=== PATIENT | male | born 1970 | race African-American/Black ===

== ENCOUNTER 2020-03-28 18:44 | Inpatient (IN) | payer SELFPAY ==
--- NOTE | 2020-03-28 19:10 | ER Document Report ---
ED Medical Screen (RME) - General Stated Complaint: WEAKNESS Time Seen by Provider: 03/28/20 19:00 Mode of Arrival: Wheelchair Information source: Patient, Relative Notes: HPI; 49-year-old male with no previous medical problems was brought to the emergency room room by his complaining of generalized weakness, weight loss, and decreased appetite for the past 2 weeks. States he quit smoking in drinking soda just prior to his symptoms starting. States he was seen in urgent care last week was diagnosed with bronchitis and put on prednisone. States he went back 5 days ago because he started having swelling in his feet states they stopped the prednisone and put him on Zithromax. He did have a negative Covid test 1 week ago. No known COVID-19 exposure. Patient states "I just feel like a lot of follow-up" he denies any chest pain or shortness of breath. PE: Alert and oriented x3. Lungs: Clear to auscultation without rales, rhonchi, wheezes. Heart: Tachycardic without murmurs, rubs, gallops. 2+ pitting edema bilaterally I have greeted and performed a rapid initial assessment of this patient. A comprehensive ED assessment and evaluation of the patient, analysis of test results and completion of the medical decision making process will be conducted by additional ED providers. I have specifically instructed the patient or family members with the patient to immediately return to any nursing staff should anything change in the patient's condition or with their chief complaint. TRAVEL OUTSIDE OF THE [place] IN LAST 30 DAYS: No - Related Data Allergies/Adverse Reactions: No Known Allergies Allergy (Unverified 03/28/20 19:00) Physical Exam - Vital signs Vitals: Pulse Resp BP Pulse Ox 103 H 22 H 193/151 H 97 03/28/20 18:56 03/28/20 18:56 03/28/20 18:56 03/28/20 18:56 Course - Vital Signs Vital signs: Temp Pulse Resp BP Pulse Ox 103 H 22 H 193/151 H 97 03/28/20 18:56 03/28/20 18:56 03/28/20 18:56 03/28/20 18:56
[2020-03-28 20:03] LABS: APPEARANCE,URINE SLIGHTLY-CLOUDY; BILIRUBIN,URINE NEGATIVE (NEGATIVE); COLOR,URINE AMBER; GLUCOSE, URINE NEGATIVE (NEGATIVE); KETONES,URINE NEGATIVE (NEGATIVE); LEUKOCYTE ESTERASE,URINE NEGATIVE (NEGATIVE); NITRITE,URINE NEGATIVE (NEGATIVE); PROTEIN,URINE >=500 mg/dL (NEGATIVE); URINE SPECIFIC GRAVITY 1.017
--- NOTE | 2020-03-28 20:27 | RADIOLOGY REPORT (SQ) ---
EXAM DESCRIPTION: X-RAY CHEST- One View CLINICAL HISTORY: Weakness COMPARISON: None available. TECHNIQUE: Single view of the chest. FINDINGS: There are no discrete air space infiltrates, pneumothoraces or pleural effusions. The pulmonary vascularity is normal. The cardiomediastinal silhouette is mildly enlarged. Osseous structures appear grossly intact. IMPRESSION: There are no acute lung parenchymal findings. Mild enlargement of the cardiac silhouette.
[2020-03-28 21:01] LABS: ABSOLUTE MONOCYTES (AUTO) 0.7 10^3/uL (0.1-1.4); ABSOLUTE NEUT (AUTO) 8.6 10^3/uL (1.7-8.2); BASOPHILS % (AUTO) 0.3 % (0-2); HEMATOCRIT 45.3 % (37.9-51.0); HEMOGLOBIN 14.8 g/dL (13.5-17.0); LYMPHOCYTES % (AUTO) 9.5 % (13-45); MEAN CORPUSCULAR HEMOGLOBIN 30.5 pg (27.0-33.4); MEAN CORPUSCULAR HGB CONC 32.6 g/dL (32.0-36.0); MEAN CORPUSCULAR VOLUME 94 fl (80-97); MONOCYTES % (AUTO) 6.7 % (3-13); PLATELET COUNT 140 10^3/uL (150-450); RED BLOOD COUNT 4.85 10^6/uL (4.35-5.55); RED CELL DISTRIBUTION WIDTH 18.3 % (11.5-14.0); SEGMENTED NEUTROPHILS % (AUTO) 83.5 % (42-78); TOTAL CELLS COUNTED % (AUTO) 100 %; WHITE BLOOD COUNT 10.3 10^3/uL (4.0-10.5)
[2020-03-28 21:28] LABS: ALBUMIN 3.4 g/dL (3.5-5.0); ALKALINE PHOSPHATASE 295 U/L (38-126); ANION GAP 15 (5-19); ASPARTATE AMINO TRANSFERASE 198 U/L (17-59); BILIRUBIN,TOTAL 4.6 mg/dL (0.2-1.3); BLOOD UREA NITROGEN 94 mg/dL (7-20); CALCIUM 9.4 mg/dL (8.4-10.2); CARBON DIOXIDE 24 mmol/L (22-30); CHLORIDE 83 mmol/L (98-107); GLUCOSE 138 mg/dL (75-110); TOTAL PROTEIN 7.3 g/dL (6.3-8.2)
--- NOTE | 2020-03-28 21:52 | ER Document Report ---
ED General - General Chief Complaint: General Weakness Stated Complaint: WEAKNESS Time Seen by Provider: 03/28/20 19:00 Mode of Arrival: Wheelchair TRAVEL OUTSIDE OF THE [place] IN LAST 30 DAYS: No - HPI Context: Time: 1929 Chief Complaint: [Generalized weakness, dyspnea on exertion, orthopnea, bilateral foot swelling] [This is a 49-year-old male with no prior history of congestive heart failure presenting to the emergency department with the above complaints. Patient states that they have been present over the past 2 weeks and has just been getting progressively worse. Patient denies chest pain, history of CHF. Patient states he quit smoking about a month and a half ago. ] History obtained from [patient] Symptoms began:[2 weeks] Onset: [Gradual] Timing: [Gradual] Quality: [Moderate] Intensity: [Denies pain] Location: [Generalized weakness] Radiation: [Denies] [The pain does not migrate to a new location.] Aggravating factors: [none] Relieving factors: [none] Positive SOB [Denies] nausea [Denies] vomiting [Denies] sweats [Denies] fever [Denies] cough Positive foot swelling - Related Data Allergies/Adverse Reactions: No Known Allergies Allergy (Unverified 03/28/20 19:00) Past Medical History - General Information source: Patient, Relative - Social History Smoking Status: Former Smoker Chew tobacco use (# tins/day): No Frequency of alcohol use: None Drug Abuse: None Family History: Reviewed & Not Pertinent Review of Systems - Review of Systems Notes: Review of systems as below unless otherwise stated in HPI. CONSTITUTIONAL [No] fever, [No] chills. Positive generalized weakness EYES [No] eye pain. ENT [No] URI symptoms, [No] sore throat, [No] ear pain. CARDIOVASCULAR [No] chest pain, [No] palpitations, [No] edema. RESPIRATORY [No] Cough, positive SOB, [No] wheezing. Positive dyspnea on exertion, positive orthopnea, positive pedal edema GASTROINTESTINAL [No] abdominal pain, [No] nausea, [No] Diarrhea, [No] Vomiting, [No] constipation, [No] melena, [No] rectal bleeding. GENITOURINARY [No] dysuria, [No] urinary frequency, [No] hematuria, [No] urinary urgency MUSCULOSKELETAL [No] Back pain. SKIN [No] Rash. NEUROLOGIC [No] Headache, [No] recent seizures, [No] paralysis,[No] parathesias. ENDOCRINE [No] polyuria. HEMO/LYMPATIC [No] easy brusing PSYCHIATRIC [No] depression. Physical Exam - Vital signs Vitals: Pulse Resp BP Pulse Ox 103 H 22 H 193/151 H 97 03/28/20 18:56 03/28/20 18:56 03/28/20 18:56 03/28/20 18:56 - Notes Notes: CONSTITUTIONAL [Vital signs reviewed, Patient appears comfortable, Alert and oriented X 3, Normal stature.] HEAD [Atraumatic, Normocephalic.] EYES [Eyes are normal to inspection, No discharge from eyes, Extraocular muscles int act, Sclera are normal, Conjunctiva are normal.] ENT [External ears normal to inspection, Nose examination normal, Mouth normal to inspection.] NECK [Normal ROM, No jugular venous distention, No meningeal signs, ] RESPIRATORY CHEST [Chest is nontender, Breath sounds normal, No respiratory distress.] CARDIOVASCULAR [RRR, No murmurs, Normal S1 S2, No rub, No gallop.] ABDOMEN [Abdomen is nontender, No pulsatile masses, No other masses, Bowel sounds normal, No distension, No peritoneal signs, No hernias.] BACK [There is no CVA Tenderness, There is no tenderness to palpation, Normal inspection.] UPPER EXTREMITY [Inspection normal, No cyanosis, No clubbing, No edema, LOWER EXTREMITY Lower extremity exam significant for 1+ pitting edema in bilateral feet and ankles NEURO [No focal motor deficits, No focal sensory deficits, Speech normal.] SKIN [Skin is warm, Skin is dry, Skin is normal color.] PSYCHIATRIC [Normal affect. ] Course - Re-evaluation Re-evalutation: 03/29/20 07:43 Results of ED aliasing discussed with patient and patient's significant other. Recommendation for admission discussed with patient patient's significant other. They were agreeable to being admitted. - Vital Signs Vital signs: Temp Pulse Resp BP Pulse Ox 97.6 F 90 18 167/102 H 100 03/29/20 08:28 03/29/20 02:44 03/29/20 06:00 03/29/20 05:46 03/29/20 06:00 - Laboratory Result Diagrams: 03/29/20 06:58 12/07/20 06:58 Laboratory results interpreted by me: 03/28/20 03/28/20 03/28/20 19:22 19:22 19:22 RDW Plt Count Lymph % (Auto) Absolute Neuts (auto) Seg Neutrophils % Sodium Chloride BUN Creatinine Est GFR ( Amer) Est GFR (MDRD) Non-Af Glucose Total Bilirubin Direct Bilirubin AST ALT Alkaline Phosphatase NT-Pro-B Natriuret Pep Albumin Urine Protein >=500 H Urine Blood MODERATE H Urine Urobilinogen 4.0 H Protein/Creatinin Ratio 0.6 H Urine Sodium < 5 L Urine Total Protein 128.4 H 03/28/20 03/28/20 03/28/20 20:45 20:45 20:45 RDW 18.3 H Plt Count 140 L Lymph % (Auto) 9.5 L Absolute Neuts (auto) 8.6 H Seg Neutrophils % 83.5 H Sodium 121.5 L Chloride 83 L BUN 94 H Creatinine 3.44 H Est GFR ( Amer) 23 L Est GFR (MDRD) Non-Af 19 L Glucose 138 H Total Bilirubin 4.6 H Direct Bilirubin 3.0 H AST 198 H ALT 354 H Alkaline Phosphatase 295 H NT-Pro-B Natriuret Pep 09480 H Albumin 3.4 L Urine Protein Urine Blood Urine Urobilinogen Protein/Creatinin Ratio Urine Sodium Urine Total Protein - Diagnostic Test Radiology reviewed: Reports reviewed - EKG Interpretation by Me Additional EKG results interpreted by me: 03/29/20 07:46 EKG obtained on 03/28/2020 at 1916 hrs. was interpreted by this MD. Findings: Sinus tachycardia heart rate 101, normal axis, ME interval appears to be within normal limits, P waves preceding QRS complexes, QRS complexes appear narrow, QTC is 462, there are nonspecific ST segment changes present. This EKG was reviewed with Dr. Hsu with cardiology. No prior EKG is available for comparison. Impression: Sinus tachycardia with nonspecific ST segments. - Consults Dr. Hsu, cardiology Time consulted: 22:45 - Dr. Hsu feels the patient can be taken care of at this facility Reason for consultation: 03/29/20 07:47 And abnormal EKG, apparent new onset CHF, abnormal troponin Dr. Alegre Time consulted: 23:00 Reason for consultation: 03/29/20 08:00 New onset CHF Consulted provider: will come to ER Discharge - Discharge Clinical Impression: New onset of congestive heart failure Heart failure with acute decompensation, type unknown Qualifiers: Heart failure type: unspecified Qualified Code(s): I50.9 - Heart failure, unspecified Condition: Stable Disposition: ADMITTED INPATIENT Admitting Provider: Bashir ([facility]) Unit Admitted: ICU
[2020-03-28 21:53] LABS: TROPONIN I 0.181 ng/mL
[2020-03-28] MEDS ORDERED: NITROGLYCERIN/D5W 50 MG/250 ML RTUINJ IV PRN ×2 (23:01→23:28)
[2020-03-28] MEDS ORDERED: FUROSEMIDE INJ/PF 20 MG/2 ML SDV IV ONE (23:02)
[2020-03-28] MEDS ORDERED: FUROSEMIDE INJ/PF 40 MG/4 ML SDV ONE (23:05)
[2020-03-28] MEDS ORDERED: ONDANSETRON HCL INJ/PF 4 MG/2 ML SDV IV PRN (23:15)
[2020-03-28] MEDS ORDERED: ASPIRIN 325 MG TABLET PO ONE (23:24)
[2020-03-28] MEDS ORDERED: FAMOTIDINE 20 MG TABLET PO ONE (23:30)
[2020-03-28] MEDS ORDERED: ATORVASTATIN CALCIUM 40 MG TABLET PO ONE (23:45)
[2020-03-28] MEDS ORDERED: FUROSEMIDE INJ/PF 40 MG/4 ML SDV IV ONE (23:45)
--- NOTE | 2020-03-29 00:43 | PDOC H&P ---
History of Present Illness Patient complains of: Shortness of breath, leg swelling History of Present Illness: COSME BLANC is a 49 year old male with no known past medical history presents to the ED with a 2-week duration of progressively worsening shortness of breath. He states that initially the shortness of breath was exertional and it progressively got worse to a level where he started feeling short of breath even at rest. In the past 2 weeks he states that he has not been able to lie flat and he has to prop himself up in order to sleep. He also states that he wakes up from sleep feeling hungry for air and has to sit up to feel better. Associated with this he also has bilateral lower extremity swelling of same duration. Patient states that he visited urgent care center few times in the past 2 weeks and was told that he has bronchitis and was given inhalers and steroid treatment which did not improve his symptoms. He endorses occasional dry cough but denies any fever or chills. He denies chest pain, lightheadedness, palpitation, diaphoresis, focal weakness of extremities, or vomiting. 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 He has not been to a doctor in a very long time and currently is not on any chronic medication and he does not take [id number] medications. Social History Information Source: Patient Lives with: Family Smoking Status: Former Smoker Electronic Cigarette use?: No Hx Recreational Drug Use: No Drugs: None - Advance Directive Resuscitation Status: Full Code Family History Parental Family History Reviewed: Yes Children Family History Reviewed: Yes Sibling(s) Family History Reviewed.: Yes Medication/Allergy Allergies/Adverse Reactions: No Known Allergies Allergy (Unverified 03/28/20 19:00) Review of Systems Constitutional: PRESENT: anorexia, weight loss. ABSENT: chills, fever(s), headache(s), night sweats Eyes: ABSENT: visual disturbances Ears: ABSENT: hearing changes Nose, Mouth, and Throat: ABSENT: headache(s), mouth pain, sore throat Cardiovascular: PRESENT: as per HPI Respiratory: PRESENT: as per HPI Gastrointestinal: ABSENT: abdominal pain, constipation, diarrhea, hematemesis, hematochezia, nausea, vomiting Genitourinary: ABSENT: dysuria, hematuria Musculoskeletal: ABSENT: back pain, muscle weakness Integumentary: ABSENT: rash, wounds Neurological: ABSENT: abnormal speech, confusion, dizziness, focal weakness, syncope Psychiatric: ABSENT: anxiety, depression, homidical ideation, suicidal ideation Endocrine: ABSENT: cold intolerance, heat intolerance, polydipsia, polyuria Hematologic/Lymphatic: ABSENT: easy bleeding, easy bruising Physical Exam Vital Signs: Temp Pulse Resp BP Pulse Ox 103 H 13 200/152 H 100 03/28/20 18:56 03/28/20 22:00 03/28/20 22:01 03/28/20 22:01 Intake & Output 03/27/20 03/28/20 03/29/20 06:59 06:59 06:59 Intake Total 0 Balance 0 Weight 98.3 kg Additional comments: GENERAL APPEARANCE: Alert and oriented x3, in no acute distress HEENT: Normocephalic and atraumatic. No scleral icterus. Moist oral mucosa NECK: Supple. No lymphadenopathy or tenderness. Has elevated JVD CHEST: Symmetric. Nontender to palpation. LUNGS: Clear with good air entry bilaterally. No wheezing or crackles HEART: Regular rate and rhythm with normal S1 and S2. No murmurs, gallops, or rubs. ABDOMEN: soft, active bowel sounds, no direct or rebound tenderness. No organomegaly detected. EXTREMITIES: No cyanosis or clubbing. Has +2 bilateral pitting edema up to the knees. MUSCULOSKELETAL: No deformity, atrophy or swelling noted PSYCHIATRIC: Recent and remote memory is intact. Appropriate mood and affect. SKIN: Warm, dry, and well perfused. No lesions or rashes are noted. NEUROLOGIC: No focal sensory or motor deficits are noted. Results Laboratory Results: 03/28/20 20:45 03/28/20 20:45 03/28/20 03/28/20 03/28/20 19:22 20:45 20:45 WBC 10.3 RBC 4.85 Hgb 14.8 Hct 45.3 MCV 94 MCH 30.5 MCHC 32.6 RDW 18.3 H Plt Count 140 L Seg Neutrophils % 83.5 H Sodium 121.5 L Potassium 5.0 Chloride 83 L Carbon Dioxide 24 Anion Gap 15 BUN 94 H Creatinine 3.44 H Est GFR ( Amer) 23 L Glucose 138 H Calcium 9.4 Total Bilirubin 4.6 H AST 198 H Alkaline Phosphatase 295 H Total Protein 7.3 Albumin 3.4 L Urine Color ROBER Urine Appearance SLIGHTLY-CLOUDY Urine pH 5.0 Ur Specific [place] 1.017 Urine Protein >=500 H Urine Glucose (UA) NEGATIVE Urine Ketones NEGATIVE Urine Blood MODERATE H Urine Nitrite NEGATIVE Ur Leukocyte Esterase NEGATIVE Urine WBC (Auto) 2 Urine RBC (Auto) 2 03/28/20 20:45 Troponin I 0.181 NT-Pro-B Natriuret Pep 43506 H Impressions: Chest X-Ray 03/28/20 19:06 IMPRESSION: There are no acute lung parenchymal findings. Mild enlargement of the cardiac silhouette. Assessment and Plan - Diagnosis (1) Heart failure with acute decompensation, type unknown Is this a current diagnosis for this admission?: Yes Plan: Presents with exertional dyspnea, orthopnea, PND and leg swelling In the setting of elevated troponins and ST depression on inferior and lateral leads, concerning for new onset heart failure due to myocardial ischemia Chest x-ray shows cardiomegaly BNP elevated at 48,500 Lasix 80 mg IV was given at the ED, continue 40 mg IV twice daily Strict I&O's, daily weight, fluid restriction On telemetry monitoring Closely monitor volume status Echocardiogram in the morning Cardiology consult placed (2) Non-STEMI (non-ST elevated myocardial infarction) Is this a current diagnosis for this admission?: Yes Plan: Patient denies any chest pain Initial troponin was elevated at 0.[address] depression in inferior leads and lateral leads On telemetry monitoring Started on aspirin and atorvastatin Currently chest pain-free and on nitro drip for possible hypertensive emergency Trend cardiac enzymes and EKG Optimally controlled blood pressure with a target reduction of 25% in the first 24 hours line Will consider stress test Or cath based on his kidney function Ordered echocardiogram Cardiology consult placed (3) Hypertensive emergency Is this a current diagnosis for this admission?: Yes Plan: Blood pressure on arrival: Systolic in the 190s and diastolic ranging in the 140s and 150s Patient denies any headache, blurring of vision, chest pain or weakness of e xtremities Has potential signs of endorgan damage: currently being managed for NSTEMI with acute decompensated heart failure and kidney injury Placed on nitroglycerin drip Closely monitor vital signs Continue management of heart failure and non-STEMI as stated above (4) Acute kidney injury Is this a current diagnosis for this admission?: Yes Plan: Patient has no prior baseline labs to compare with Could be DIALLO on CKD vs DIALLO vs CKD BUN/creatinine was 94/3.44, has no signs of uremia or acidosis Serum electrolytes are within the normal limit, with a potassium 5.0 Urine dipstick was positive for proteinuria, follow-up with spot urine protein to creatinine ratio Ordered urine sodium and creatinine to calculate FeNa Currently is being diuresed Closely monitor renal indicis and electrolytes No acute indication for dialysis at this point, volume overload could be due to heart failure Will get nephrology on board in the morning (5) Hyponatremia Is this a current diagnosis for this admission?: Yes Plan: Possibly due to volume overload from congestive heart failure Currently asymptomatic Serum sodium is 121 on presentation on IV diuresis Continue close monitoring of BMP (6) Elevated liver enzymes Is this a current diagnosis for this admission?: Yes Plan: Liver enzymes are elevated on presentation with AST/ALT/alk phos => 198/354/295 Positive direct and indirect bilirubin elevated, total bilirubin: 4.6, direct 3.0 Patient denies heavy alcohol abuse Ordered hepatitis panel, GGT Will consider obtaining right upper quadrant ultrasound monitor CMP - Time Time Spent with patient: 35 or more minutes Total Critical Time (Minutes): 45 Medications reviewed and adjusted accordingly: Yes Anticipated Discharge Disposition: Home, Self Care Anticipated Discharge Timeframe: within 72 hours - Inpatient Certification Based on my medical assessment, after consideration of the patient's comorbidities, presenting symptoms, or acuity I expect that the services needed warrant INPATIENT care.: Yes I certify that my determination is in accordance with my understanding of Medicare's requirements for reasonable and necessary INPATIENT services [42 CFR 412.3e].: Yes Medical Necessity: Need Close Monitoring Due to Risk of Patient Decompensation, Need For Continuous Telemetry Monitoring, Risk of Complication if Not Cared For in Hospital Post Hospital Care: D/C or Transfer Summary
[2020-03-29 01:16] LABS: PROTHROMBIN TIME 18.3 SEC (11.4-15.4)
[2020-03-29 01:17] LABS: PARTIAL THROMBOPLASTIN TIME 34.8 SEC (23.5-35.8)
[2020-03-29 02:23] LABS: UR PRO/CREAT RATIO RESULT 0.6 mg/mg (0.0-0.2); URINE CREATININE 217.4 mg/dL (22-328); URINE PROTEIN 128.4 mg/dL (<12)
[2020-03-29] MEDS ORDERED: TEMAZEPAM 7.5 MG CAPSULE PO PRN (02:29)
[2020-03-29] MEDS ORDERED: FUROSEMIDE INJ/PF 40 MG/4 ML SDV IV ONE (03:05)
[2020-03-29] MEDS ORDERED: HYDRALAZINE HCL INJ/PF 20 MG/1 ML SDV ONE ×2 (04:11→12:32)
[2020-03-29] MEDS ORDERED: HYDRALAZINE HCL INJ/PF 20 MG/1 ML SDV IV ONE ×2 (04:19→13:00)
[2020-03-29 05:21] LABS: APPEARANCE,URINE CLEAR; BILIRUBIN,URINE NEGATIVE (NEGATIVE); COLOR,URINE YELLOW; GLUCOSE, URINE NEGATIVE (NEGATIVE); KETONES,URINE NEGATIVE (NEGATIVE); LEUKOCYTE ESTERASE,URINE NEGATIVE (NEGATIVE); NITRITE,URINE NEGATIVE (NEGATIVE); PROTEIN,URINE 100 mg/dL (NEGATIVE); URINE SPECIFIC GRAVITY 1.005; UROBILINOGEN,URINE NEGATIVE mg/dL (<2.0)
--- NOTE | 2020-03-29 05:40 | CRITICAL CARE ADMISSION REPORT ---
HPI Date:: 03/29/20 Time:: 02:30 Reason for ICU Reason:: Hypertensive Emergency , NSTEMI , CHF Admission Date/Time & PCP: Admission Date/Time: 03/28/20 23:29 Primary Care Provider: HPI: COSME BLANC is a 49 year old male with no known past medical history presents to the ED with a 2-week duration of progressively worsening shortness of breath. He states that initially the shortness of breath was exertional and it progressively got worse to a level where he started feeling short of breath even at rest. In the past 2 weeks he states that he has not been able to lie flat and he has to prop himself up in order to sleep. He also states that he wakes up from sleep feeling hungry for air and has to sit up to feel better. Associated with this he also has bilateral lower extremity swelling of same duration. Patient states that he visited urgent care center few times in the past 2 weeks and was told that he has bronchitis and was given inhalers and steroid treatment which did not improve his symptoms. He endorses occasional dry cough but denies any fever or chills. He denies chest pain, lighthead edness, palpitation, diaphoresis, focal weakness of extremities, or vomiting. 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 He has not been to a doctor in a very long time and currently is not on any chronic medication and he does not take [id number] medications. Evaluated by critical care per hospitalist request. Patient requiring higher dose of Nitroglycerine IV. Patient denies any chest pain, palpitation, diaphoresis. History obtained from:: Patient, Hospitalist - Diagnosis/Plan (1) Acute kidney injury Is this a current diagnosis for this admission?: Yes Plan: Monitor BUN/Creatine Renal Ultra sound in am Nephrology consulted Avoid nephrotoxic agents (2) Elevated liver enzymes Is this a current diagnosis for this admission?: Yes Plan: Abdominal U/S in am Trend LFTs (3) Heart failure with acute decompensation, type unknown Qualifiers: Heart failure type: unspecified Qualified Code(s): I50.9 - Heart failure, unspecified Is this a current diagnosis for this admission?: Yes Plan: Echocardiogram in am Trend BNP Furosemide 40 mg IV BID and as needed Strict I and Os Nitroglycerine IV (4) Hypertensive emergency Is this a current diagnosis for this admission?: Yes Plan: Monitor hemodynamics Nitroglycerine IV titrate to maintain to SBP 160 mmhg and DBP 80-90 mmhg (5) Hyponatremia Is this a current diagnosis for this admission?: Yes Plan: Renal u/s Furosemide 80 mg IV ( ER) and 40 mg IV BID Fluid restrictions Strict I and O. (6) Non-STEMI (non-ST elevated myocardial infarction) Is this a current diagnosis for this admission?: Yes Plan: EKG in am Trend Tropononin Aspirin 325 mg Q day Nitroglycerine IV Echo in am Past Medical History Psychiatric Medical History: Denies: Depression Social/Family History - Social History Lives with: Family Smoking Status: Former Smoker Number of Years Smokin Frequency of Alcohol Use: Occasional Hx Recreational Drug Use: No Drugs: None - Medication/Allergies Allergies/Adverse Reactions: No Known Allergies Allergy (Unverified 03/28/20 19:00) Physical Exam Vital Signs: Temp Pulse Resp BP Pulse Ox 97.6 F 90 26 H 190/134 H 100 03/29/20 02:44 03/29/20 02:44 03/29/20 02:44 03/29/20 02:44 03/29/20 02:44 Intake & Output 03/27/20 03/28/20 03/29/20 06:59 06:59 06:59 Intake Total 137 Output Total 575 Balance -438 Weight 97.5 kg Weight/Height Weight 97.5 kg Height 6 ft Laboratory/Radiographs Laboratory Results: 03/28/20 20:45 03/28/20 20:45 03/28/20 03/28/20 03/28/20 19:22 19:22 20:45 WBC 10.3 RBC 4.85 Hgb 14.8 Hct 45.3 MCV 94 MCH 30.5 MCHC 32.6 RDW 18.3 H Plt Count 140 L Seg Neutrophils % 83.5 H Sodium Potassium Chloride Carbon Dioxide Anion Gap BUN Creatinine Est GFR ( Amer) Glucose Serum Osmolality Calcium Total Bilirubin AST Alkaline Phosphatase Total Protein Albumin Urine Color ROBER Urine Appearance SLIGHTLY-CLOUDY Urine pH 5.0 Ur Specific [place] 1.017 Urine Protein >=500 H Urine Glucose (UA) NEGATIVE Urine Ketones NEGATIVE Urine Blood MODERATE H Urine Nitrite NEGATIVE Ur Leukocyte Esterase NEGATIVE Urine WBC (Auto) 2 Urine RBC (Auto) 2 Urine Osmolality 441 03/28/20 03/28/20 20:45 20:45 WBC RBC Hgb Hct MCV MCH MCHC RDW Plt Count Seg Neutrophils % Sodium 121.5 L Potassium 5.0 Chloride 83 L Carbon Dioxide 24 Anion Gap 15 BUN 94 H Creatinine 3.44 H Est GFR ( Amer) 23 L Glucose 138 H Serum Osmolality 295 Calcium 9.4 Total Bilirubin 4.6 H AST 198 H Alkaline Phosphatase 295 H Total Protein 7.3 Albumin 3.4 L Urine Color Urine Appearance Urine pH Ur Specific [place] Urine Protein Urine Glucose (UA) Urine Ketones Urine Blood Urine Nitrite Ur Leukocyte Esterase Urine WBC (Auto) Urine RBC (Auto) Urine Osmolality 03/28/20 03/29/20 20:45 01:01 Troponin I 0.181 0.173 NT-Pro-B Natriuret Pep 31060 H Impressions: Chest X-Ray 03/28/20 19:06 IMPRESSION: There are no acute lung parenchymal findings. Mild enlargement of the cardiac silhouette. Critical Time Critical Time (minutes): 60 -: The care of a critically ill patient is dynamic. This note represents a static moment in the admission process. Orders and treatments may be given simultaneously and urgently, and time is not loan servicing representative of the treatment process. This patient requires Critical Care secondary to life threatening organ or limb dysfunction. Without Critical Care services, the patient is at risk for increased mortality and morbidity.
--- NOTE | 2020-03-29 07:16 | Progress Note ---
Provider Note Provider Note: Patient is currently admitted to the ICU service. I will defer further management to the vision therapist. Please reconsult when transferred out of the ICU.
[2020-03-29 07:27] LABS: ABSOLUTE MONOCYTES (AUTO) 0.7 10^3/uL (0.1-1.4); ABSOLUTE NEUT (AUTO) 9.9 10^3/uL (1.7-8.2); BASOPHILS % (AUTO) 0.2 % (0-2); HEMATOCRIT 39.3 % (37.9-51.0); LYMPHOCYTES % (AUTO) 8.7 % (13-45); MEAN CORPUSCULAR HEMOGLOBIN 30.6 pg (27.0-33.4); MEAN CORPUSCULAR HGB CONC 33.2 g/dL (32.0-36.0); MEAN CORPUSCULAR VOLUME 92 fl (80-97); MONOCYTES % (AUTO) 6.2 % (3-13); PLATELET COUNT 130 10^3/uL (150-450); RED BLOOD COUNT 4.25 10^6/uL (4.35-5.55); SEGMENTED NEUTROPHILS % (AUTO) 84.9 % (42-78); TOTAL CELLS COUNTED % (AUTO) 100 %; WHITE BLOOD COUNT 11.7 10^3/uL (4.0-10.5)
[2020-03-29 07:31] LABS: ALBUMIN 3.3 g/dL (3.5-5.0); ALKALINE PHOSPHATASE 255 U/L (38-126); ANION GAP 12 (5-19); ASPARTATE AMINO TRANSFERASE 163 U/L (17-59); BILIRUBIN,DIRECT 2.9 mg/dL (0.0-0.4); BILIRUBIN,TOTAL 4.5 mg/dL (0.2-1.3); BLOOD UREA NITROGEN 94 mg/dL (7-20); CALCIUM 9.1 mg/dL (8.4-10.2); CARBON DIOXIDE 30 mmol/L (22-30); CHLORIDE 84 mmol/L (98-107); CHOLESTEROL 106.73 mg/dL (0-200); GLUCOSE 202 mg/dL (75-110); PHOSPHORUS 5.7 mg/dL (2.5-4.5); POTASSIUM 4.1 mmol/L (3.6-5.0); TOTAL PROTEIN 6.9 g/dL (6.3-8.2); TRIGLYCERIDES 108 mg/dL (<150)
[2020-03-29 07:41] LABS: DIRECT LDL 76 mg/dL (<100)
[2020-03-29] MEDS: NITROGLYCERIN/D5W 50 MG/250 ML RTUINJ IV PRN ×2 (07:42→14:05)
[2020-03-29] MEDS ORDERED: METOPROLOL TARTRATE 25 MG TABLET PO SCH ×2 (08:00→22:00)
--- NOTE | 2020-03-29 08:17 | EKG REPORT ---
SEVERITY:- ABNORMAL ECG - SINUS RHYTHM PROBABLE LEFT ATRIAL ABNORMALITY LVH WITH IVCD AND SECONDARY REPOL ABNRM : Confirmed by: Celio Grigsby 29-Mar-2020 08:16:20
--- NOTE | 2020-03-29 08:17 | EKG REPORT ---
SEVERITY:- ABNORMAL ECG - SINUS TACHYCARDIA LEFT ATRIAL ABNORMALITY LVH WITH SECONDARY REPOLARIZATION ABNORMALITY : Confirmed by: Celio Grigsby 29-Mar-2020 08:16:31
--- NOTE | 2020-03-29 08:34 | RADIOLOGY REPORT (SQ) ---
EXAM DESCRIPTION: CHEST SINGLE VIEW IMAGES COMPLETED DATE/TIME: 03/29/2020 6:08 am REASON FOR STUDY: CHF COMPARISON: AP view of the chest from 03/28/2020. EXAM PARAMETERS: NUMBER OF VIEWS: One view. TECHNIQUE: An AP view of the chest was obtained. RADIATION DOSE: NA LIMITATIONS: None. FINDINGS: LUNGS AND PLEURA: No consolidation, pleural effusion or pneumothorax. MEDIASTINUM AND HILAR STRUCTURES: No mediastinal or hilar contour abnormality. HEART AND VASCULAR STRUCTURES: The cardiac silhouette is mildly enlarged. BONES: No acute findings. HARDWARE: None in the chest. OTHER: No other finding. IMPRESSION: Mild cardiomegaly without a superimposed acute cardiopulmonary process. TECHNICAL DOCUMENTATION: JOB ID: [id number] [employer]- All Rights Reserved Reading location - IP/workstation name: [email or web address]
[2020-03-29] MEDS: FUROSEMIDE INJ/PF 40 MG/4 ML SDV IV SCH ×2 (09:14→21:15)
[2020-03-29] MEDS: FAMOTIDINE 20 MG TABLET PO SCH ×2 (09:15→21:15)
[2020-03-29] MEDS: ENOXAPARIN SODIUM INJ 40 MG/0.4 ML DISP.SYRIN SUBCUT SCH (09:15)
[2020-03-29] MEDS: ASPIRIN 81 MG TABLET, CHEWABLE PO SCH (09:15)
[2020-03-29] MEDS ORDERED: DOCUSATE SODIUM 100 MG/10 ML UDC PO SCH (10:00)
--- NOTE | 2020-03-29 10:48 | PDOC CRITICAL CARE PROG REPORT ---
General Date:: 03/29/20 ICU Day:: 1 Hospital Day:: 1 Resuscitation Status: Full Code Events in the past 12 to 24 Hours:: Found to be in R CHF mild L CHF. On NTG drip. Needs BP control. Review of systems relevant to events:: CV Reason for ICU Addmission:: Hypertensive Emergency , NSTEMI , CHF - Medications: Medications reviewed and adjusted accordingly: Yes Vasopressors:: None Sedation:: None Physical Exam Vital Signs: Temp Pulse Resp BP Pulse Ox 97.6 F 90 20 169/111 H 100 03/29/20 08:28 03/29/20 02:44 03/29/20 10:17 03/29/20 10:17 03/29/20 10:17 Intake & Output 03/28/20 03/29/20 03/30/20 06:59 06:59 06:59 Intake Total 137 200 Output Total 1375 1500 Balance -1238 -1300 Weight 97.5 kg Weight/Height Weight 97.5 kg Height 6 ft General appearance: PRESENT: no acute distress, cooperative, well-developed, well-nourished Head exam: PRESENT: atraumatic, normocephalic Eye exam: PRESENT: conjunctiva pink, EOMI, PERRLA. ABSENT: scleral icterus Ear exam: PRESENT: normal external ear exam Mouth exam: PRESENT: moist, tongue midline Respiratory exam: PRESENT: clear to auscultation raymundo. ABSENT: rales, rhonchi, wheezes Cardiovascular exam: PRESENT: RRR. ABSENT: diastolic murmur, rubs, systolic murmur GI/Abdominal exam: PRESENT: normal bowel sounds, soft. ABSENT: distended, guarding, mass, organolmegaly, rebound, tenderness Rectal exam: PRESENT: deferred Extremities exam: PRESENT: full ROM, +1 edema. ABSENT: calf tenderness, clubbing, pedal edema Musculoskeletal exam: PRESENT: normal inspection Neurological exam: PRESENT: alert, awake, oriented to person, oriented to place, oriented to time, oriented to situation, CN II-XII grossly intact. ABSENT: motor sensory deficit Psychiatric exam: PRESENT: appropriate affect, normal mood. ABSENT: homicidal ideation, suicidal ideation Skin exam: PRESENT: dry, intact, warm. ABSENT: cyanosis, rash Laboratory/Radiographs Laboratory Results: 03/29/20 06:58 03/29/20 06:58 03/28/20 03/28/20 03/28/20 19:22 19:22 20:45 WBC 10.3 RBC 4.85 Hgb 14.8 Hct 45.3 MCV 94 MCH 30.5 MCHC 32.6 RDW 18.3 H Plt Count 140 L Seg Neutrophils % 83.5 H Sodium Potassium Chloride Carbon Dioxide Anion Gap BUN Creatinine Est GFR ( Amer) Glucose Serum Osmolality Calcium Phosphorus Magnesium Total Bilirubin AST Alkaline Phosphatase Ammonia Total Protein Albumin Triglycerides Cholesterol LDL Cholesterol Direct VLDL Cholesterol HDL Cholesterol Amylase Lipase Urine Color ROBER Urine Appearance SLIGHTLY-CLOUDY Urine pH 5.0 Ur Specific [place] 1.017 Urine Protein >=500 H Urine Glucose (UA) NEGATIVE Urine Ketones NEGATIVE Urine Blood MODERATE H Urine Nitrite NEGATIVE Ur Leukocyte Esterase NEGATIVE Urine WBC (Auto) 2 Urine RBC (Auto) 2 Urine Osmolality 441 03/28/20 03/28/20 03/29/20 20:45 20:45 04:45 WBC RBC Hgb Hct MCV MCH MCHC RDW Plt Count Seg Neutrophils % Sodium 121.5 L Potassium 5.0 Chloride 83 L Carbon Dioxide 24 Anion Gap 15 BUN 94 H Creatinine 3.44 H Est GFR ( Amer) 23 L Glucose 138 H Serum Osmolality 295 Calcium 9.4 Phosphorus Magnesium Total Bilirubin 4.6 H AST 198 H Alkaline Phosphatase 295 H Ammonia Total Protein 7.3 Albumin 3.4 L Triglycerides Cholesterol LDL Cholesterol Direct VLDL Cholesterol HDL Cholesterol Amylase Lipase Urine Color YELLOW Urine Appearance CLEAR Urine pH 6.0 Ur Specific [place] 1.005 Urine Protein 100 H Urine Glucose (UA) NEGATIVE Urine Ketones NEGATIVE Urine Blood SMALL H Urine Nitrite NEGATIVE Ur Leukocyte Esterase NEGATIVE Urine WBC (Auto) 0 Urine RBC (Auto) 0 Urine Osmolality 03/29/20 03/29/20 03/29/20 06:58 06:58 06:58 WBC 11.7 H RBC 4.25 L Hgb 13.0 L Hct 39.3 MCV 92 MCH 30.6 MCHC 33.2 RDW 18.0 H Plt Count 130 L Seg Neutrophils % 84.9 H Sodium 126.4 L Potassium 4.1 Chloride 84 L Carbon Dioxide 30 Anion Gap 12 BUN 94 H Creatinine 3.53 H Est GFR ( Amer) 23 L Glucose 202 H Serum Osmolality Calcium 9.1 Phosphorus 5.7 H Magnesium 2.4 H Total Bilirubin 4.5 H AST 163 H Alkaline Phosphatase 255 H Ammonia Total Protein 6.9 Albumin 3.3 L Triglycerides 108 Cholesterol 106.73 LDL Cholesterol Direct 76 VLDL Cholesterol 22.0 HDL Cholesterol 15 L Amylase 129 H Lipase 864.7 H Urine Color Urine Appearance Urine pH Ur Specific [place] Urine Protein Urine Glucose (UA) Urine Ketones Urine Blood Urine Nitrite Ur Leukocyte Esterase Urine WBC (Auto) Urine RBC (Auto) Urine Osmolality 03/29/20 06:58 WBC RBC Hgb Hct MCV MCH MCHC RDW Plt Count Seg Neutrophils % Sodium Potassium Chloride Carbon Dioxide Anion Gap BUN Creatinine Est GFR ( Amer) Glucose Serum Osmolality Calcium Phosphorus Magnesium Total Bilirubin AST Alkaline Phosphatase Ammonia < 8.7 L Total Protein Albumin Triglycerides Cholesterol LDL Cholesterol Direct VLDL Cholesterol HDL Cholesterol Amylase Lipase Urine Color Urine Appearance Urine pH Ur Specific [place] Urine Protein Urine Glucose (UA) Urine Ketones Urine Blood Urine Nitrite Ur Leukocyte Esterase Urine WBC (Auto) Urine RBC (Auto) Urine Osmolality 03/28/20 03/29/20 03/29/20 20:45 01:01 06:58 Troponin I 0.181 0.173 0.190 NT-Pro-B Natriuret Pep [id number] H 03/29/20 06:58 Troponin I NT-Pro-B Natriuret Pep [id number] H Impressions: Chest X-Ray 03/29/20 06:00 IMPRESSION: Mild cardiomegaly without a superimposed acute cardiopulmonary process. All labs, radiographs, diagnostic studies and EKGs were personally reviewed: Yes In addition, reports of radiographic and diagnostic studies were read: Yes Assessment and Plan - Diagnosis (1) Hypertensive emergency Is this a current diagnosis for this admission?: Yes Plan: The reason for the NTG drip[. I am not sure if this is really an emergency. I believe the CR elevation is not new. The troponin may be from this and a BNP of 39K. When of the NTG downgrade. Keep Bp around 150-160 or no lower than 20-25% of baseline on admission. (2) Acute kidney injury Is this a current diagnosis for this admission?: Yes Plan: Adjust BP and if Cr and GFR dont come down, may need nephrology. Level tends to preclude MARGARITA and ARBs for now. (3) Heart failure with acute decompensation, type unknown Qualifiers: Heart failure type: unspecified Qualified Code(s): I50.9 - Heart failure, unspecified Is this a current diagnosis for this admission?: Yes Plan: Bedside echo suggestive of LVH. Likely has diastolic dysfunction. Needs lasix. (4) Hyponatremia Is this a current diagnosis for this admission?: Yes Plan: Monitor in view of Lasix use. Plan Summary: Asked Dr. Song to see. D/C NTG drip today and downgrade. Critical Time Critical Time (minutes): 35 Level of Care: ICU Anticipated discharge: Home Anticipated DC Timeframe: Other -: 1. The care of a critical patient is a dynamic process. This note is a repres entative synopsis but static in nature. The timeframe for treatments given in order is not necessarily the actual time these treatments may have been done. 2. This patient requires critical care secondary to ongoing requirements for therapy not offered or safe outside the critical care environment. Transfer to a lower level of care will result in altered life or limb morbidity and mortality. 3. Multidisciplinary rounds completed. 4. ABCDE bundle addressed.
[2020-03-29] MEDS ORDERED: NITROGLYCERIN 15 MG (0.6 MG/1 HR) PATCH.TD24 TD SCH (14:00)
[2020-03-29] MEDS ORDERED: HYDRALAZINE HCL 25 MG TABLET PO ONE (15:39)
[2020-03-29] MEDS: DOCUSATE SODIUM 100 MG CAPSULE PO SCH (17:10)
--- NOTE | 2020-03-29 17:29 | XCELERA REPORT ---
[address] [address] Transthoracic Echocardiogram Report Name: COSME BLANC Age: 49 yrs Gender: Male : 1970 Patient Status: Inpatient Patient Location: ICU^[id number] Study Date: 03/29/2020 11:02 AM Height: 72 in Weight: 214 lb BSA: 2.2 m2 Procedure: A two-dimensional transthoracic echocardiogram with color flow and Doppler was performed. Study Quality: Good. Reason For Study: CHF, murmur History: CHF, murmur. Ordering Physician: OMID TORO Performed By: Felisa Deshpande Interpretation Summary The left ventricle is moderately to severly dilated. There is moderate to severe concentric left ventricular hypertrophy. LV EF is Less than 20% Left ventricular systolic function is severely reduced. Doppler measurements suggest impaired left ventricular relaxation, which is associated with grade I/IV or mild diastolic dysfunction : By Tissue dopplers. There is severe global hypokinesis of the left ventricle. here is a clot in the Apical Inferiror wall, .The LA has a 2.5 X2.6 cm rounded mobile clot.Cannot exclude a clot in the RA. The right ventricle is mild to moderately dilated. The right ventricular systolic function is mild to moderately reduced. The right atrium is moderately dilated. The left atrium is severely dilated. There is no evidence of mitral valve prolapse. There is no vegetation seen on the mitral valve. There is no mitral valve stenosis. There is a moderate amount of mitral regurgitation There is no aortic valvular vegetation. There is no aortic valve stenosis There is no LVOT obstruction. No aortic regurgitation is present. There is no tricuspid stenosis. There is a moderate to severe amount of tricuspid regurgitation There is at least moderate pulmonary hypertension.RVSP is at least 53 mm of Hg , with RA mean f atleast 20 . There is no pulmonic valvular stenosis. There is a mild amount of pulmonic regurgitation The aortic root is normal size. The inferior vena cava appeared dilated and did not change with respiration (RAP > 20 mmHg) There is no pericardial effusion. MMode/2D Measurements & Calculations RVDd: 4.6 cm LVIDd: 6.1 cm FS: 9.9 % EPSS: 1.9 cm IVSd: 1.6 cm LVIDs: 5.5 cm EDV(Teich): 187.9 ml LVPWd: 1.6 cm ESV(Teich): 148.0 ml EF(Teich): 21.3 % Ao root diam: 3.2 cm LVLd ap4: 9.0 cm SV(MOD-sp4): 48.0 ml EDV(MOD-sp4): 200.0 ml Ao root area: 8.2 cm2 LVLs ap4: 8.5 cm LA dimension: 5.7 cm ESV(MOD-sp4): 152.0 ml EF(MOD-sp4): 24.0 % Doppler Measurements & Calculations MV E max sagar: MV P1/2t max sagar: Ao V2 max: LV V1 max P.9 cm/sec 92.9 cm/sec 117.3 cm/sec 1.9 mmHg MV A max sagar: MV P1/2t: 39.3 msec Ao max PG: LV V1 max: 33.3 cm/sec MVA(P1/2t): 5.6 cm2 5.5 mmHg 68.6 cm/sec MV E/A: 2.8 MV dec slope: 691.7 cm/sec2 MV dec time: 0.12 sec PA V2 max: PI end-d sagar: TR max sagar: MV P1/2t-pr_phl: 56.2 cm/sec 133.6 cm/sec 287.8 cm/sec 39.3 msec PA max PG: TR max P.3 mmHg 33.1 mmHg Left Ventricle The left ventricle is moderately to severly dilated. There is moderate to severe concentric left ventricular hypertrophy. LV EF is Less than 20%. Left ventricular systolic function is severely reduced. Doppler measurements suggest impaired left ventricular relaxation, which is associated with grade I/IV or mild diastolic dysfunction. : By Tissue dopplers. There is severe global hypokinesis of the left ventricle. here is a clot in the Apical Inferiror wall, .The LA has a 2.5 X2.6 cm rounded mobile clot.Cannot exclude a clot in the RA. Right Ventricle The right ventricle is mild to moderately dilated. The right ventricular systolic function is mild to moderately reduced. Atria The right atrium is moderately dilated. The left atrium is severely dilated. Mitral Valve There is no evidence of mitral valve prolapse. There is no vegetation seen on the mitral valve. There is no mitral valve stenosis. There is a moderate amount of mitral regurgitation. Aortic Valve There is no aortic valvular vegetation. There is no aortic valve stenosis. There is no LVOT obstruction. No aortic regurgitation is present. Tricuspid Valve There is no tricuspid stenosis. There is a moderate to severe amount of tricuspid regurgitation. There is at least moderate pulmonary hypertension.RVSP is at least 53 mm of Hg , with RA mean f atleast 20 . Pulmonic Valve There is no pulmonic valvular stenosis. There is a mild amount of pulmonic regurgitation. Great Vessels The aortic root is normal size. The inferior vena cava appeared dilated and did not change with respiration (RAP > 20 mmHg). Effusions There is no pericardial effusion. : OMID TORO Lakshmi
--- NOTE | 2020-03-29 17:35 | PDOC CONSULTATION ---
Consultation-Blank Consultation: CARDIOLOGY CONSULTATION by Dr. Minnie Sage on 2019. Patient seen at 5:45 PM. 60 minutes spent with patient more than 50% time spent on direct patient care. HISTORY OF PRESENT ILLNESS: Patient is a 49-year-old Afro-German male who claims he has no prior major medical illness states since the past 2 weeks has been having progressively increasing shortness of breath to rest shortness of breath with dry cough PND orthopnea and leg edema. But on further questioning it looks like the patient has decreased effort tolerance with started at least more than a year ago. Although he was very active he was not as physically comfortable as doing these tasks as he used to in the past. He denies any palpitations near syncope or syncope. He denies any chest pain or discomfort. There is no anginal symptoms. There is no TIA CVA symptoms. Note the patient's admission blood pressure was in the hypertensive emergency range and the patient had acute renal failure with elevated BUN and creatinine and also abnormal liver function test. His troponin I was elevated which is probably secondary to supply demand mismatch rather than a acute coronary event. Note that the patient's echocardiogram shows significantly dilated left ventricle and also the other chambers. Also there is moderate to severe left ventricle hypertrophy. Hence patient probably has had untreated hypertension for a long time. The patient's renal function is also abnormal the patient presents with acute renal failure. In spite of all this there is no pulmonary edema on the patient's chest x-ray. Hence the patient has had untreated hypertension for a long time which is caused endorgan damage in the form of cardiomyopathy and renal failure. He also has at least moderate pulmonary hypertension which could account for the patient's abnormal liver function tests. PAST MEDICAL HISTORY: He denies prior history of hypertension diabetes mellitus, COPD or renal failure. He has no history of TIA CVA. No symptoms of heart failure in the past except for about 2 to 3 weeks duration. He has no history of thyroid disease. He denies any palpitations or history of syncope. Social History Information Source: Patient Lives with: Family Smoking Status: Former Smoker Electronic Cigarette use?: No Hx Recreational Drug Use: No Drugs: None - Advance Directive Resuscitation Status: Full Code. His spouse is a surrogate healthcare decision maker. Family History Parental Family History Reviewed: Yes Children Family History Reviewed: Yes Sibling(s) Family History Reviewed.: Yes Medication/Allergy Allergies/Adverse Reactions: No Home Medications 03/29/20 No Known Allergies Allergy (Unverified 03/28/20 19:00) Current Medications Generic Name Dose Route Start Last Admin Trade Name Cyrus PRN Reason Stop Dose Admin Aspirin 81 mg 03/29/20 10:00 03/29/20 09:15 Aspirin 81 Mg Tablet, Chewable PO 04/28/20 09:59 81 mg DAILY STEVEN Administration Atorvastatin Calcium 40 mg 03/29/20 22:00 Atorvastatin Calcium 40 Mg Tablet PO 04/28/20 21:59 QHS STEVEN Carvedilol 25 mg 03/29/20 22:00 Carvedilol 12.5 Mg Tablet PO 04/28/20 21:59 Q12 STEVEN Docusate Sodium 100 mg 03/29/20 18:00 03/29/20 17:10 Docusate Sodium 100 Mg Capsule PO 04/28/20 17:59 Not Given BID STEVEN Enoxaparin Sodium 40 mg 03/29/20 10:00 03/29/20 09:15 Enoxaparin Sodium Inj 40 Mg/0.4 Ml Disp.Syrin SUBCUT 04/28/20 09:59 40 mg DAILY STEVEN Administration Famotidine 20 mg 03/29/20 10:00 03/29/20 09:15 Famotidine 20 Mg Tablet PO 04/28/20 09:59 20 mg Q12 STEVEN Administration Furosemide 40 mg 03/29/20 10:00 03/29/20 09:14 Furosemide Inj/Pf 40 Mg/4 Ml Sdv IV 04/28/20 09:59 40 mg Q12 STEVEN Administration Nitroglycerin/Dextrose 50 mg in 250 mls @ 0 mls/hr 03/29/20 02:34 03/29/20 17:29 Ntg Rtu 50 Mg/D5w 250 Ml Iv Premix Bottle IV 03/29/20 23:59 90 mcg/min CONTINUOUS PRN 27 mls/hr THIS MED IS NOT "PRN" Titration Protocol Titrate Nitroglycerin 1 each 03/29/20 14:00 03/29/20 14:18 Nitroglycerin 15 Mg (0.6 Mg/1 Hr) Patch.Td24 TD 04/28/20 13:59 1 each DAILY STEVEN Administration Ondansetron HCl 4 mg 03/28/20 23:15 Ondansetron Hcl Inj/Pf 4 Mg/2 Ml Sdv IV 04/27/20 23:14 Q8HP PRN FOR NAUSEA/VOMITING Sodium Chloride 2.5 ml 03/29/20 03:00 03/29/20 14:03 Normal Saline Flush 2.5 Ml Disp.Syrin IV 04/28/20 02:59 Not Given Q8 STEVEN Temazepam 7.5 mg 03/29/20 02:29 Temazepam 7.5 Mg Capsule PO 04/05/20 02:28 HSP PRN SLEEP OR INSOMNIA Discontinued Medications Generic Name Dose Route Start Last Admin Trade Name Freq PRN Reason Stop Dose Admin Aspirin 325 mg 03/28/20 23:24 03/28/20 23:49 Aspirin 325 Mg Tablet PO 03/28/20 23:25 325 mg NOW ONE Administration Atorvastatin Calcium 40 mg 03/28/20 23:45 03/28/20 23:49 Atorvastatin Calcium 40 Mg Tablet PO 03/28/20 23:46 40 mg NOW ONE Administration Carvedilol 12.5 mg 03/29/20 22:00 Carvedilol 12.5 Mg Tablet PO 04/28/20 21:59 Q12 STEVEN Docusate Sodium 100 mg 03/29/20 10:00 03/29/20 09:15 Docusate Sodium 100 Mg/10 Ml Udc PO 04/28/20 09:59 Not Given BID STEVEN Famotidine 20 mg 03/28/20 23:30 03/28/20 23:49 Famotidine 20 Mg Tablet PO 03/28/20 23:31 20 mg NOW ONE Administration Furosemide 80 mg 03/28/20 23:02 03/28/20 23:12 Furosemide Inj/Pf 20 Mg/2 Ml Sdv IV 03/28/20 23:03 80 mg NOW ONE Administration Furosemide Confirm 03/28/20 23:05 03/28/20 23:26 Furosemide Inj/Pf 40 Mg/4 Ml Sdv Administered 03/28/20 23:06 Not Given Dose 40 mg .ROUTE .STK-MED ONE Furosemide 40 mg 03/28/20 23:45 03/28/20 23:56 Furosemide Inj/Pf 40 Mg/4 Ml Sdv IV 03/28/20 23:46 40 mg NOW ONE Administration Furosemide 40 mg 03/29/20 03:05 03/29/20 03:05 Furosemide Inj/Pf 40 Mg/4 Ml Sdv IV 12/07/20 03:06 40 mg NOW ONE Administration Hydralazine HCl Confirm 03/29/20 04:11 03/29/20 06:30 Hydralazine Hcl Inj/Pf 20 Mg/1 Ml Sdv Administered 03/29/20 04:12 Not Given Dose 20 mg .ROUTE .STK-MED ONE Hydralazine HCl 20 mg 03/29/20 04:19 03/29/20 04:19 Hydralazine Hcl Inj/Pf 20 Mg/1 Ml Sdv IV 03/29/20 04:20 20 mg NOW ONE Administration Hydralazine HCl Confirm 03/29/20 12:32 03/29/20 12:42 Hydralazine Hcl Inj/Pf 20 Mg/1 Ml Sdv Administered 03/29/20 12:33 20 mg Dose Administration 20 mg .ROUTE .STK-MED ONE Hydralazine HCl 20 mg 03/29/20 13:00 03/29/20 14:08 Hydralazine Hcl Inj/Pf 20 Mg/1 Ml Sdv IV 03/29/20 13:01 Not Given NOW ONE Hydralazine HCl 25 mg 03/29/20 15:39 03/29/20 16:02 Hydralazine Hcl 25 Mg Tablet PO 03/29/20 15:40 25 mg NOW ONE Administration Nitroglycerin/Dextrose 50 mg in 250 mls @ 0 mls/hr 03/28/20 23:01 03/29/20 02:13 Ntg Rtu 50 Mg/D5w 250 Ml Iv Premix Bottle IV 04/27/20 23:00 30 mls/hr CONTINUOUS PRN 30 mls/hr THIS MED IS NOT "PRN" Titration Protocol Titrate Nitroglycerin/Dextrose 50 mg in 250 mls @ 0 mls/hr 03/28/20 23:28 Ntg Rtu 50 Mg/D5w 250 Ml Iv Premix Bottle IV 04/27/20 23:27 CONTINUOUS PRN THIS MED IS NOT "PRN" Protocol Titrate Metoprolol Tartrate 12.5 mg 03/29/20 08:00 03/29/20 07:46 Metoprolol Tartrate 25 Mg Tablet PO 04/28/20 07:59 12.5 mg Q12 STEVEN Administration Metoprolol Tartrate 25 mg 03/29/20 22:00 Metoprolol Tartrate 25 Mg Tablet PO 04/28/20 21:59 Q12 STEVEN Sodium Chloride 2.5 ml 03/29/20 02:30 Normal Saline Flush 2.5 Ml Disp.Syrin IV 04/28/20 02:29 Q8 STEVEN Sodium Chloride 2.5 ml 03/29/20 02:45 Normal Saline Flush 2.5 Ml Disp.Syrin IV 04/28/20 02:44 Q8 STEVEN Sodium Chloride 2.5 ml 03/29/20 02:45 Normal Saline Flush 2.5 Ml Disp.Syrin IV 04/28/20 02:44 Q8 STEVEN Sodium Chloride 2.5 ml 03/29/20 03:00 Normal Saline Flush 2.5 Ml Disp.Syrin IV 04/28/20 02:59 Q8 STEVEN Sodium Chloride 2.5 ml 03/29/20 03:00 Normal Saline Flush 2.5 Ml Disp.Syrin IV 04/28/20 02:59 Q8 STEVEN Review of Systems Constitutional: PRESENT: anorexia, weight loss. ABSENT: chills, fever(s), headache(s), night sweats Eyes: ABSENT: visual disturbances Ears: ABSENT: hearing changes Nose, Mouth, and Throat: ABSENT: headache(s), mouth pain, sore throat Cardiovascular: PRESENT: as per HPI Respiratory: PRESENT: as per HPI Gastrointestinal: ABSENT: abdominal pain, constipation, diarrhea, hematemesis, hematochezia, nausea, vomiting Genitourinary: ABSENT: dysuria, hematuria Musculoskeletal: ABSENT: back pain, muscle weakness Integumentary: ABSENT: rash, wounds Neurological: ABSENT: abnormal speech, confusion, dizziness, focal weakness, syncope Psychiatric: ABSENT: anxiety, depression, homidical ideation, suicidal ideation Endocrine: ABSENT: cold intolerance, heat intolerance, polydipsia, polyuria Hematologic/Lymphatic: ABSENT: easy bleeding, easy bruising PHYSICAL EXAMINATION: The patient appears to be well-built and well-nourished. Selected Entries 03/29/20 03/29/20 03/29/20 16:06 17:02 17:16 Heart Rate ( 94 Monitors) Respiratory Rate Blood Pressure 181/107 H Blood Pressure 131 Mean O2 Sat by Pulse 100 Oximetry Oxygen Delivery Room Air Method ( includes room air) 03/29/20 17:17 Heart Rate ( 97 Monitors) Respiratory 28 H Rate Blood Pressure 185/116 H Blood Pressure 139 Mean O2 Sat by Pulse 99 Oximetry Oxygen Delivery Method ( includes room air) Head: Is atraumatic normocephalic. EYES: Nipples are equal round regular reactive light accommodation. Extraocular movements are normal. There is no definite conjunctival pallor present there is no scleral icterus. Ears: Tympanic membranes are intact. External auditory canals are clear. NOSE: There is no deviated nasal septum. There is no inflammation of the nasal mucous membrane. MOUTH: Mucous membranes of mouth are moist. Tongue is moist. There is no ulcers. There is no bleeding from the gums. THROAT: There is no redness of the oropharynx. There is no exudates. SKIN: There is no skin rashes. There is no petechia or ecchymosis. There is no skin lesions. NECK: Supple. There is mild JVD present. Carotids are equal there is no bruit there is no lymphadenopathy. There is no goiter. Lungs: There is a few bibasilar rales of CHF. HEART: S1-S2 is heard. There is an S4 gallop present there is no S3 gallop. There is systolic murmur left sternal border and the apex of mitral regurgitation and tricuspid regurgitation. There is no aortic stenosis or aortic regurgitation murmur. There is no rub. ABDOMEN: Is soft. There is no hepatosplenomegaly. Bowel sounds well heard. There is no tender areas of masses. EXTREMITIES: Femorals are well felt. There is no femoral bruits. Leg pulses are well felt. There is mild pedal edema bilaterally. There is no DVT or cellulitis. There is no calf tenderness. INSOLE BUFFER: The patient is conscious awake alert oriented x3 with no focal focal deficits. PSYCHIATRIC: The patient judgment insight are intact his affect is normal. EKG: Sinus rhythm. LVH with repolarization abnormality. Nonspecific IVCD. Echo: Shows significant LV dilatation with also right ventricular left atrial and right atrial enlargement. There is clot in the inferoapical portion of the left ventricle and also clot in the left atrium. There is at least moderate pulmonary hypertension. Labs- Entire Visit 03/28/20 03/28/20 03/28/20 19:22 19:22 19:22 WBC RBC Hgb Hct MCV MCH MCHC RDW Plt Count Lymph % (Auto) [place] % (Auto) Eos % (Auto) Baso % (Auto) Absolute Neuts (auto) Absolute Lymphs (auto) Absolute Monos (auto) Absolute Eos (auto) Absolute Basos (auto) Seg Neutrophils % PT INR APTT Sodium Potassium Chloride Carbon Dioxide Anion Gap BUN Creatinine Est GFR ( Amer) Est GFR (MDRD) Non-Af Glucose Hemoglobin A1c % Serum Osmolality Calcium Phosphorus Magnesium Total Bilirubin Direct Bilirubin Neonat Total Bilirubin Neonat Direct Bilirubin Neonat Indirect Bili AST ALT Alkaline Phosphatase Ammonia Troponin I NT-Pro-B Natriuret Pep Total Protein Albumin Triglycerides Cholesterol LDL Cholesterol Direct VLDL Cholesterol HDL Cholesterol Amylase Lipase Urine Color ROBER Urine Appearance SLIGHTLY-CLOUDY Urine pH 5.0 Ur Specific [place] 1.017 Urine Protein >=500 H Urine Glucose (UA) NEGATIVE Urine Ketones NEGATIVE Urine Blood MODERATE H Urine Nitrite NEGATIVE Urine Bilirubin NEGATIVE Urine Urobilinogen 4.0 H Ur Leukocyte Esterase NEGATIVE Urine WBC (Auto) 2 Urine RBC (Auto) 2 U Hyaline Cast (Auto) 5 Urine Bacteria (Auto) TRACE Squamous Epi Cells Auto <1 Urine Mucus (Auto) RARE Urine Osmolality Urine Creatinine 217.4 Protein/Creatinin Ratio 0.6 H Urine Sodium < 5 L Urine Total Protein 128.4 H Urine Ascorbic Acid NEGATIVE 03/28/20 03/28/20 03/28/20 19:22 20:45 20:45 WBC 10.3 RBC 4.85 Hgb 14.8 Hct 45.3 MCV 94 MCH 30.5 MCHC 32.6 RDW 18.3 H Plt Count 140 L Lymph % (Auto) 9.5 L [place] % (Auto) 6.7 Eos % (Auto) 0.0 Baso % (Auto) 0.3 Absolute Neuts (auto) 8.6 H Absolute Lymphs (auto) 1.0 Absolute Monos (auto) 0.7 Absolute Eos (auto) 0.0 Absolute Basos (auto) 0.0 Seg Neutrophils % 83.5 H PT INR APTT Sodium 121.5 L Potassium 5.0 Chloride 83 L Carbon Dioxide 24 Anion Gap 15 BUN 94 H Creatinine 3.44 H Est GFR ( Amer) 23 L Est GFR (MDRD) Non-Af 19 L Glucose 138 H Hemoglobin A1c % Serum Osmolality Calcium 9.4 Phosphorus Magnesium Total Bilirubin 4.6 H Direct Bilirubin 3.0 H Neonat Total Bilirubin Not Reportable Neonat Direct Bilirubin Not Reportable Neonat Indirect Bili Not Reportable AST 198 H ALT 354 H Alkaline Phosphatase 295 H Ammonia Troponin I NT-Pro-B Natriuret Pep Total Protein 7.3 Albumin 3.4 L Triglycerides Cholesterol LDL Cholesterol Direct VLDL Cholesterol HDL Cholesterol Amylase Lipase Urine Color Urine Appearance Urine pH Ur Specific [place] Urine Protein Urine Glucose (UA) Urine Ketones Urine Blood Urine Nitrite Urine Bilirubin Urine Urobilinogen Ur Leukocyte Esterase Urine WBC (Auto) Urine RBC (Auto) U Hyaline Cast (Auto) Urine Bacteria (Auto) Squamous Epi Cells Auto Urine Mucus (Auto) Urine Osmolality 441 Urine Creatinine Protein/Creatinin Ratio Urine Sodium Urine Total Protein Urine Ascorbic Acid 03/28/20 03/28/20 03/29/20 20:45 20:45 01:01 WBC RBC Hgb Hct MCV MCH MCHC RDW Plt Count Lymph % (Auto) [place] % (Auto) Eos % (Auto) Baso % (Auto) Absolute Neuts (auto) Absolute Lymphs (auto) Absolute Monos (auto) Absolute Eos (auto) Absolute Basos (auto) Seg Neutrophils % PT INR APTT Sodium Potassium Chloride Carbon Dioxide Anion Gap BUN Creatinine Est GFR ( Amer) Est GFR (MDRD) Non-Af Glucose Hemoglobin A1c % Serum Osmolality 295 Calcium Phosphorus Magnesium Total Bilirubin Direct Bilirubin Neonat Total Bilirubin Neonat Direct Bilirubin Neonat Indirect Bili AST ALT Alkaline Phosphatase Ammonia Troponin I 0.181 0.173 NT-Pro-B Natriuret Pep 53741 H Total Protein Albumin Triglycerides Cholesterol LDL Cholesterol Direct VLDL Cholesterol HDL Cholesterol Amylase Lipase Urine Color Urine Appearance Urine pH Ur Specific [place] Urine Protein Urine Glucose (UA) Urine Ketones Urine Blood Urine Nitrite Urine Bilirubin Urine Urobilinogen Ur Leukocyte Esterase Urine WBC (Auto) Urine RBC (Auto) U Hyaline Cast (Auto) Urine Bacteria (Auto) Squamous Epi Cells Auto Urine Mucus (Auto) Urine Osmolality Urine Creatinine Protein/Creatinin Ratio Urine Sodium Urine Total Protein Urine Ascorbic Acid 03/29/20 03/29/20 03/29/20 01:01 04:45 06:58 WBC RBC Hgb Hct MCV MCH MCHC RDW Plt Count Lymph % (Auto) [place] % (Auto) Eos % (Auto) Baso % (Auto) Absolute Neuts (auto) Absolute Lymphs (auto) Absolute Monos (auto) Absolute Eos (auto) Absolute Basos (auto) Seg Neutrophils % PT 18.3 H INR 1.50 APTT 34.8 Sodium 126.4 L Potassium 4.1 Chloride 84 L Carbon Dioxide 30 Anion Gap 12 BUN 94 H Creatinine 3.53 H Est GFR ( Amer) 23 L Est GFR (MDRD) Non-Af 19 L Glucose 202 H Hemoglobin A1c % Serum Osmolality Calcium 9.1 Phosphorus Magnesium 2.4 H Total Bilirubin 4.5 H Direct Bilirubin 2.9 H Neonat Total Bilirubin Not Reportable Neonat Direct Bilirubin Not Reportable Neonat Indirect Bili Not Reportable AST 163 H ALT 321 H Alkaline Phosphatase 255 H Ammonia Troponin I NT-Pro-B Natriuret Pep Total Protein 6.9 Albumin 3.3 L Triglycerides 108 Cholesterol 106.73 LDL Cholesterol Direct 76 VLDL Cholesterol 22.0 HDL Cholesterol 15 L Amylase Lipase Urine Color YELLOW Urine Appearance CLEAR Urine pH 6.0 Ur Specific [place] 1.005 Urine Protein 100 H Urine Glucose (UA) NEGATIVE Urine Ketones NEGATIVE Urine Blood SMALL H Urine Nitrite NEGATIVE Urine Bilirubin NEGATIVE Urine Urobilinogen NEGATIVE Ur Leukocyte Esterase NEGATIVE Urine WBC (Auto) 0 Urine RBC (Auto) 0 U Hyaline Cast (Auto) 1 Urine Bacteria (Auto) Squamous Epi Cells Auto <1 Urine Mucus (Auto) RARE Urine Osmolality Urine Creatinine Protein/Creatinin Ratio Urine Sodium Urine Total Protein Urine Ascorbic Acid NEGATIVE 03/29/20 03/29/20 03/29/20 06:58 06:58 06:58 WBC 11.7 H RBC 4.25 L Hgb 13.0 L Hct 39.3 MCV 92 MCH 30.6 MCHC 33.2 RDW 18.0 H Plt Count 130 L Lymph % (Auto) 8.7 L [place] % (Auto) 6.2 Eos % (Auto) 0.0 Baso % (Auto) 0.2 Absolute Neuts (auto) 9.9 H Absolute Lymphs (auto) 1.0 Absolute Monos (auto) 0.7 Absolute Eos (auto) 0.0 Absolute Basos (auto) 0.0 Seg Neutrophils % 84.9 H PT INR APTT Sodium Potassium Chloride Carbon Dioxide Anion Gap BUN Creatinine Est GFR ( Amer) Est GFR (MDRD) Non-Af Glucose Hemoglobin A1c % 4.9 Serum Osmolality Calcium Phosphorus Magnesium Total Bilirubin Direct Bilirubin Neonat Total Bilirubin Neonat Direct Bilirubin Neonat Indirect Bili AST ALT Alkaline Phosphatase Ammonia Troponin I 0.190 NT-Pro-B Natriuret Pep Total Protein Albumin Triglycerides Cholesterol LDL Cholesterol Direct VLDL Cholesterol HDL Cholesterol Amylase Lipase Urine Color Urine Appearance Urine pH Ur Specific [place] Urine Protein Urine Glucose (UA) Urine Ketones Urine Blood Urine Nitrite Urine Bilirubin Urine Urobilinogen Ur Leukocyte Esterase Urine WBC (Auto) Urine RBC (Auto) U Hyaline Cast (Auto) Urine Bacteria (Auto) Squamous Epi Cells Auto Urine Mucus (Auto) Urine Osmolality Urine Creatinine Protein/Creatinin Ratio Urine Sodium Urine Total Protein Urine Ascorbic Acid 03/29/20 03/29/20 03/29/20 06:58 06:58 06:58 WBC RBC Hgb Hct MCV MCH MCHC RDW Plt Count Lymph % (Auto) [place] % (Auto) Eos % (Auto) Baso % (Auto) Absolute Neuts (auto) Absolute Lymphs (auto) Absolute Monos (auto) Absolute Eos (auto) Absolute Basos (auto) Seg Neutrophils % PT INR APTT Sodium Potassium Chloride Carbon Dioxide Anion Gap BUN Creatinine Est GFR ( Amer) Est GFR (MDRD) Non-Af Glucose Hemoglobin A1c % Serum Osmolality Calcium Phosphorus 5.7 H Magnesium Total Bilirubin Direct Bilirubin Neonat Total Bilirubin Neonat Direct Bilirubin Neonat Indirect Bili AST ALT Alkaline Phosphatase Ammonia < 8.7 L Troponin I NT-Pro-B Natriuret Pep 62153 H Total Protein Albumin Triglycerides Cholesterol LDL Cholesterol Direct VLDL Cholesterol HDL Cholesterol Amylase 129 H Lipase 864.7 H Urine Color Urine Appearance Urine pH Ur Specific [place] Urine Protein Urine Glucose (UA) Urine Ketones Urine Blood Urine Nitrite Urine Bilirubin Urine Urobilinogen Ur Leukocyte Esterase Urine WBC (Auto) Urine RBC (Auto) U Hyaline Cast (Auto) Urine Bacteria (Auto) Squamous Epi Cells Auto Urine Mucus (Auto) Urine Osmolality Urine Creatinine Protein/Creatinin Ratio Urine Sodium Urine Total Protein Urine Ascorbic Acid 03/29/20 12:26 WBC RBC Hgb Hct MCV MCH MCHC RDW Plt Count Lymph % (Auto) [place] % (Auto) Eos % (Auto) Baso % (Auto) Absolute Neuts (auto) Absolute Lymphs (auto) Absolute Monos (auto) Absolute Eos (auto) Absolute Basos (auto) Seg Neutrophils % PT INR APTT Sodium Potassium Chloride Carbon Dioxide Anion Gap BUN Creatinine Est GFR ( Amer) Est GFR (MDRD) Non-Af Glucose Hemoglobin A1c % Serum Osmolality Calcium Phosphorus Magnesium Total Bilirubin Direct Bilirubin Neonat Total Bilirubin Neonat Direct Bilirubin Neonat Indirect Bili AST ALT Alkaline Phosphatase Ammonia Troponin I 0.164 NT-Pro-B Natriuret Pep Total Protein Albumin Triglycerides Cholesterol LDL Cholesterol Direct VLDL Cholesterol HDL Cholesterol Amylase Lipase Urine Color Urine Appearance Urine pH Ur Specific [place] Urine Protein Urine Glucose (UA) Urine Ketones Urine Blood Urine Nitrite Urine Bilirubin Urine Urobilinogen Ur Leukocyte Esterase Urine WBC (Auto) Urine RBC (Auto) U Hyaline Cast (Auto) Urine Bacteria (Auto) Squamous Epi Cells Auto Urine Mucus (Auto) Urine Osmolality Urine Creatinine Protein/Creatinin Ratio Urine Sodium Urine Total Protein Urine Ascorbic Acid Chest X-Ray 03/28/20 19:06 IMPRESSION: There are no acute lung parenchymal findings. Mild enlargement of the cardiac silhouette. Chest X-Ray 03/29/20 06:00 IMPRESSION: Mild cardiomegaly without a superimposed acute cardiopulmonary process. ECHO: The left ventricle is moderately to severly dilated. There is moderate to severe concentric left ventricular hypertrophy. LV EF is Less than 20% Left ventricular systolic function is severely reduced. Doppler measurements suggest impaired left ventricular relaxation, which is associated with grade I/IV or mild diastolic dysfunction : By Tissue dopplers. There is severe global hypokinesis of the left ventricle. here is a clot in the Apical Inferiror wall, .The LA has a 2.5 X2.6 cm rounded mobile clot.Cannot exclude a clot in the RA. The right ventricle is mild to moderately dilated. The right ventricular systolic function is mild to moderately reduced. The right atrium is moderately dilated. The left atrium is severely dilated. There is no evidence of mitral valve prolapse. There is no vegetation seen on the mitral valve. There is no mitral valve stenosis. There is a moderate amount of mitral regurgitation There is no aortic valvular vegetation. There is no aortic valve stenosis There is no LVOT obstruction. No aortic regurgitation is present. There is no tricuspid stenosis. There is a moderate to severe amount of tricuspid regurgitation There is at least moderate pulmonary hypertension.RVSP is at least 53 mm of Hg , with RA mean f atleast 20 . There is no pulmonic valvular stenosis. There is a mild amount of pulmonic regurgitation The aortic root is normal size. The inferior vena cava appeared dilated and did not change with respiration (RAP > 20 mmHg). Labs- Entire Visit 03/28/20 03/28/20 03/28/20 19:22 19:22 19:22 WBC RBC Hgb Hct MCV MCH MCHC RDW Plt Count Lymph % (Auto) [place] % (Auto) Eos % (Auto) Baso % (Auto) Absolute Neuts (auto) Absolute Lymphs (auto) Absolute Monos (auto) Absolute Eos (auto) Absolute Basos (auto) Seg Neutrophils % PT INR APTT Sodium Potassium Chloride Carbon Dioxide Anion Gap BUN Creatinine Est GFR ( Amer) Est GFR (MDRD) Non-Af Glucose Hemoglobin A1c % Serum Osmolality Calcium Phosphorus Magnesium Total Bilirubin Direct Bilirubin Neonat Total Bilirubin Neonat Direct Bilirubin Neonat Indirect Bili AST ALT Alkaline Phosphatase Ammonia Troponin I NT-Pro-B Natriuret Pep Total Protein Albumin Triglycerides Cholesterol LDL Cholesterol Direct VLDL Cholesterol HDL Cholesterol Amylase Lipase Urine Color ROBER Urine Appearance SLIGHTLY-CLOUDY Urine pH 5.0 Ur Specific [place] 1.017 Urine Protein >=500 H Urine Glucose (UA) NEGATIVE Urine Ketones NEGATIVE Urine Blood MODERATE H Urine Nitrite NEGATIVE Urine Bilirubin NEGATIVE Urine Urobilinogen 4.0 H Ur Leukocyte Esterase NEGATIVE Urine WBC (Auto) 2 Urine RBC (Auto) 2 U Hyaline Cast (Auto) 5 Urine Bacteria (Auto) TRACE Squamous Epi Cells Auto <1 Urine Mucus (Auto) RARE Urine Osmolality Urine Creatinine 217.4 Protein/Creatinin Ratio 0.6 H Urine Sodium < 5 L Urine Total Protein 128.4 H Urine Ascorbic Acid NEGATIVE 03/28/20 03/28/20 03/28/20 19:22 20:45 20:45 WBC 10.3 RBC 4.85 Hgb 14.8 Hct 45.3 MCV 94 MCH 30.5 MCHC 32.6 RDW 18.3 H Plt Count 140 L Lymph % (Auto) 9.5 L [place] % (Auto) 6.7 Eos % (Auto) 0.0 Baso % (Auto) 0.3 Absolute Neuts (auto) 8.6 H Absolute Lymphs (auto) 1.0 Absolute Monos (auto) 0.7 Absolute Eos (auto) 0.0 Absolute Basos (auto) 0.0 Seg Neutrophils % 83.5 H PT INR APTT Sodium 121.5 L Potassium 5.0 Chloride 83 L Carbon Dioxide 24 Anion Gap 15 BUN 94 H Creatinine 3.44 H Est GFR ( Amer) 23 L Est GFR (MDRD) Non-Af 19 L Glucose 138 H Hemoglobin A1c % Serum Osmolality Calcium 9.4 Phosphorus Magnesium Total Bilirubin 4.6 H Direct Bilirubin 3.0 H Neonat Total Bilirubin Not Reportable Neonat Direct Bilirubin Not Reportable Neonat Indirect Bili Not Reportable AST 198 H ALT 354 H Alkaline Phosphatase 295 H Ammonia Troponin I NT-Pro-B Natriuret Pep Total Protein 7.3 Albumin 3.4 L Triglycerides Cholesterol LDL Cholesterol Direct VLDL Cholesterol HDL Cholesterol Amylase Lipase Urine Color Urine Appearance Urine pH Ur Specific [place] Urine Protein Urine Glucose (UA) Urine Ketones Urine Blood Urine Nitrite Urine Bilirubin Urine Urobilinogen Ur Leukocyte Esterase Urine WBC (Auto) Urine RBC (Auto) U Hyaline Cast (Auto) Urine Bacteria (Auto) Squamous Epi Cells Auto Urine Mucus (Auto) Urine Osmolality 441 Urine Creatinine Protein/Creatinin Ratio Urine Sodium Urine Total Protein Urine Ascorbic Acid 03/28/20 03/28/20 03/29/20 20:45 20:45 01:01 WBC RBC Hgb Hct MCV MCH MCHC RDW Plt Count Lymph % (Auto) [place] % (Auto) Eos % (Auto) Baso % (Auto) Absolute Neuts (auto) Absolute Lymphs (auto) Absolute Monos (auto) Absolute Eos (auto) Absolute Basos (auto) Seg Neutrophils % PT INR APTT Sodium Potassium Chloride Carbon Dioxide Anion Gap BUN Creatinine Est GFR ( Amer) Est GFR (MDRD) Non-Af Glucose Hemoglobin A1c % Serum Osmolality 295 Calcium Phosphorus Magnesium Total Bilirubin Direct Bilirubin Neonat Total Bilirubin Neonat Direct Bilirubin Neonat Indirect Bili AST ALT Alkaline Phosphatase Ammonia Troponin I 0.181 0.173 NT-Pro-B Natriuret Pep 41959 H Total Protein Albumin Triglycerides Cholesterol LDL Cholesterol Direct VLDL Cholesterol HDL Cholesterol Amylase Lipase Urine Color Urine Appearance Urine pH Ur Specific [place] Urine Protein Urine Glucose (UA) Urine Ketones Urine Blood Urine Nitrite Urine Bilirubin Urine Urobilinogen Ur Leukocyte Esterase Urine WBC (Auto) Urine RBC (Auto) U Hyaline Cast (Auto) Urine Bacteria (Auto) Squamous Epi Cells Auto Urine Mucus (Auto) Urine Osmolality Urine Creatinine Protein/Creatinin Ratio Urine Sodium Urine Total Protein Urine Ascorbic Acid 03/29/20 03/29/20 03/29/20 01:01 04:45 06:58 WBC RBC Hgb Hct MCV MCH MCHC RDW Plt Count Lymph % (Auto) [place] % (Auto) Eos % (Auto) Baso % (Auto) Absolute Neuts (auto) Absolute Lymphs (auto) Absolute Monos (auto) Absolute Eos (auto) Absolute Basos (auto) Seg Neutrophils % PT 18.3 H INR 1.50 APTT 34.8 Sodium 126.4 L Potassium 4.1 Chloride 84 L Carbon Dioxide 30 Anion Gap 12 BUN 94 H Creatinine 3.53 H Est GFR ( Amer) 23 L Est GFR (MDRD) Non-Af 19 L Glucose 202 H Hemoglobin A1c % Serum Osmolality Calcium 9.1 Phosphorus Magnesium 2.4 H Total Bilirubin 4.5 H Direct Bilirubin 2.9 H Neonat Total Bilirubin Not Reportable Neonat Direct Bilirubin Not Reportable Neonat Indirect Bili Not Reportable AST 163 H ALT 321 H Alkaline Phosphatase 255 H Ammonia Troponin I NT-Pro-B Natriuret Pep Total Protein 6.9 Albumin 3.3 L Triglycerides 108 Cholesterol 106.73 LDL Cholesterol Direct 76 VLDL Cholesterol 22.0 HDL Cholesterol 15 L Amylase Lipase Urine Color YELLOW Urine Appearance CLEAR Urine pH 6.0 Ur Specific [place] 1.005 Urine Protein 100 H Urine Glucose (UA) NEGATIVE Urine Ketones NEGATIVE Urine Blood SMALL H Urine Nitrite NEGATIVE Urine Bilirubin NEGATIVE Urine Urobilinogen NEGATIVE Ur Leukocyte Esterase NEGATIVE Urine WBC (Auto) 0 Urine RBC (Auto) 0 U Hyaline Cast (Auto) 1 Urine Bacteria (Auto) Squamous Epi Cells Auto <1 Urine Mucus (Auto) RARE Urine Osmolality Urine Creatinine Protein/Creatinin Ratio Urine Sodium Urine Total Protein Urine Ascorbic Acid NEGATIVE 03/29/20 03/29/20 03/29/20 06:58 06:58 06:58 WBC 11.7 H RBC 4.25 L Hgb 13.0 L Hct 39.3 MCV 92 MCH 30.6 MCHC 33.2 RDW 18.0 H Plt Count 130 L Lymph % (Auto) 8.7 L [place] % (Auto) 6.2 Eos % (Auto) 0.0 Baso % (Auto) 0.2 Absolute Neuts (auto) 9.9 H Absolute Lymphs (auto) 1.0 Absolute Monos (auto) 0.7 Absolute Eos (auto) 0.0 Absolute Basos (auto) 0.0 Seg Neutrophils % 84.9 H PT INR APTT Sodium Potassium Chloride Carbon Dioxide Anion Gap BUN Creatinine Est GFR ( Amer) Est GFR (MDRD) Non-Af Glucose Hemoglobin A1c % 4.9 Serum Osmolality Calcium Phosphorus Magnesium Total Bilirubin Direct Bilirubin Neonat Total Bilirubin Neonat Direct Bilirubin Neonat Indirect Bili AST ALT Alkaline Phosphatase Ammonia Troponin I 0.190 NT-Pro-B Natriuret Pep Total Protein Albumin Triglycerides Cholesterol LDL Cholesterol Direct VLDL Cholesterol HDL Cholesterol Amylase Lipase Urine Color Urine Appearance Urine pH Ur Specific [place] Urine Protein Urine Glucose (UA) Urine Ketones Urine Blood Urine Nitrite Urine Bilirubin Urine Urobilinogen Ur Leukocyte Esterase Urine WBC (Auto) Urine RBC (Auto) U Hyaline Cast (Auto) Urine Bacteria (Auto) Squamous Epi Cells Auto Urine Mucus (Auto) Urine Osmolality Urine Creatinine Protein/Creatinin Ratio Urine Sodium Urine Total Protein Urine Ascorbic Acid 03/29/20 03/29/20 03/29/20 06:58 06:58 06:58 WBC RBC Hgb Hct MCV MCH MCHC RDW Plt Count Lymph % (Auto) [place] % (Auto) Eos % (Auto) Baso % (Auto) Absolute Neuts (auto) Absolute Lymphs (auto) Absolute Monos (auto) Absolute Eos (auto) Absolute Basos (auto) Seg Neutrophils % PT INR APTT Sodium Potassium Chloride Carbon Dioxide Anion Gap BUN Creatinine Est GFR ( Amer) Est GFR (MDRD) Non-Af Glucose Hemoglobin A1c % Serum Osmolality Calcium Phosphorus 5.7 H Magnesium Total Bilirubin Direct Bilirubin Neonat Total Bilirubin Neonat Direct Bilirubin Neonat Indirect Bili AST ALT Alkaline Phosphatase Ammonia < 8.7 L Troponin I NT-Pro-B Natriuret Pep 94943 H Total Protein Albumin Triglycerides Cholesterol LDL Cholesterol Direct VLDL Cholesterol HDL Cholesterol Amylase 129 H Lipase 864.7 H Urine Color Urine Appearance Urine pH Ur Specific [place] Urine Protein Urine Glucose (UA) Urine Ketones Urine Blood Urine Nitrite Urine Bilirubin Urine Urobilinogen Ur Leukocyte Esterase Urine WBC (Auto) Urine RBC (Auto) U Hyaline Cast (Auto) Urine Bacteria (Auto) Squamous Epi Cells Auto Urine Mucus (Auto) Urine Osmolality Urine Creatinine Protein/Creatinin Ratio Urine Sodium Urine Total Protein Urine Ascorbic Acid 03/29/20 12:26 WBC RBC Hgb Hct MCV MCH MCHC RDW Plt Count Lymph % (Auto) [place] % (Auto) Eos % (Auto) Baso % (Auto) Absolute Neuts (auto) Absolute Lymphs (auto) Absolute Monos (auto) Absolute Eos (auto) Absolute Basos (auto) Seg Neutrophils % PT INR APTT Sodium Potassium Chloride Carbon Dioxide Anion Gap BUN Creatinine Est GFR ( Amer) Est GFR (MDRD) Non-Af Glucose Hemoglobin A1c % Serum Osmolality Calcium Phosphorus Magnesium Total Bilirubin Direct Bilirubin Neonat Total Bilirubin Neonat Direct Bilirubin Neonat Indirect Bili AST ALT Alkaline Phosphatase Ammonia Troponin I 0.164 NT-Pro-B Natriuret Pep Total Protein Albumin Triglycerides Cholesterol LDL Cholesterol Direct VLDL Cholesterol HDL Cholesterol Amylase Lipase Urine Color Urine Appearance Urine pH Ur Specific [place] Urine Protein Urine Glucose (UA) Urine Ketones Urine Blood Urine Nitrite Urine Bilirubin Urine Urobilinogen Ur Leukocyte Esterase Urine WBC (Auto) Urine RBC (Auto) U Hyaline Cast (Auto) Urine Bacteria (Auto) Squamous Epi Cells Auto Urine Mucus (Auto) Urine Osmolality Urine Creatinine Protein/Creatinin Ratio Urine Sodium Urine Total Protein Urine Ascorbic Acid Chest X-Ray 03/28/20 19:06 IMPRESSION: There are no acute lung parenchymal findings. Mild enlargement of the cardiac silhouette. Chest X-Ray 03/29/20 06:00 IMPRESSION: Mild cardiomegaly without a superimposed acute cardiopulmonary process. IMPRESSION/RECOMMENDATION: 1. Hypertensive emergency with evidence of endorgan damage, there is cardiomyopathy with heart failure and renal failure and also abnormal liver enzymes indicating hepatic congestion. Would recommend starting the patient on a Cardene drip. Agree with Coreg but would increase the Coreg to 25 mg p.o. twice daily. Also increase the hydralazine to 50 mg p.o. every 8 hours. Will wean off the nitroglycerin drip and start the patient on transdermal nitro patch daily. 2. Congestive heart failure: Most likely this is acute on chronic heart failure. This is secondary to biventricular systolic heart failure. Although the patient states his symptoms started 2 weeks ago this probably is longstanding due to untreated hypertension. 3. Dilated cardiomyopathy with severely reduced LV ejection fraction. 4. Elevated troponin levels. This is secondary to supply demand mismatch, due to type II myocardial infarctions, and not acute coronary syndrome. 5. Acute renal failure: Suspect this is acute on chronic renal failure. Avoid nephrotoxic drugs. 6. Intracardiac thrombus: Once the blood pressure is controlled would start the patient on heparin drip. Subsequently will place the patient on warfarin, since I am not sure if the patient can afford Eliquis. 7. At least moderate pulmonary hypertension: This is most likely secondary to left heart failure. Expect that this would improve with treatment of the radha ent's left heart failure. 8. Abnormal liver function tests secondary to right heart failure due to pulmonary hypertension. Would strongly avoid statins at this point. 9. Severe mitral regurgitation and tricuspid regurgitation. Expect this will improve with treatment of the patient's heart failure. 10. History of tobacco abuse: Tobacco cessation counseling done. Suspect the patient has an element of COPD also. Medications reviewed medications adjusted. Discussed with the frothing machine operator. Medical decision making is of high complexity. 60 minutes spent as patient more than 50% of time spent in direct patient care. Discussed with the patient and patient's .
[2020-03-29] MEDS ORDERED: NICARDIPINE HCL RTU, ISO-OS 20 MG/200 ML RTUINJ IV PRN (18:10)
[2020-03-29] MEDS ORDERED: HYDRALAZINE HCL 25 MG TABLET ONE (18:18)
[2020-03-29] MEDS ORDERED: NICARDIPINE HCL RTU, ISO-OS 20 MG/200 ML RTUINJ IV ONE (18:19)
[2020-03-29] MEDS: HYDRALAZINE HCL 50 MG TABLET PO SCH ×2 (18:28→21:16)
[2020-03-29] MEDS: CARVEDILOL 12.5 MG TABLET PO SCH (21:15)
[2020-03-29] MEDS ORDERED: ATORVASTATIN CALCIUM 40 MG TABLET PO SCH (22:00)
[2020-03-29] MEDS ORDERED: CARVEDILOL 12.5 MG TABLET PO SCH (22:00)
[2020-03-29] MEDS ORDERED: HEPARIN SOD (PORCINE) 1,000 UNIT/ML 10 ML VIAL IV ONE ×2 (22:00)
[2020-03-29] MEDS: HEPARIN SODIUM,PORCINE/D5W 25,000 UNIT/250 ML RTUINJ IV PRN (22:37)
[2020-03-30] MEDS ORDERED: SODIUM BICARBONATE 8.4% INJ 50 MEQ/50 ML DISP.SYRIN ONE (02:22)
[2020-03-30] MEDS: PHARMACY COMMUNICATION ORDER MC SCH ×2 (02:43→17:57)
[2020-03-30 04:45] LABS: ABSOLUTE LYMPHOCYTES (AUTO) 0.8 10^3/uL (0.5-4.7); ABSOLUTE MONOCYTES (AUTO) 0.8 10^3/uL (0.1-1.4); ABSOLUTE NEUT (AUTO) 12.1 10^3/uL (1.7-8.2); BASOPHILS % (AUTO) 0.1 % (0-2); EOSINOPHILS % (AUTO) 0.2 % (0-6); HEMATOCRIT 38.2 % (37.9-51.0); HEMOGLOBIN 12.6 g/dL (13.5-17.0); LYMPHOCYTES % (AUTO) 5.9 % (13-45); MEAN CORPUSCULAR HEMOGLOBIN 30.6 pg (27.0-33.4); MEAN CORPUSCULAR HGB CONC 33.1 g/dL (32.0-36.0); MEAN CORPUSCULAR VOLUME 93 fl (80-97); MONOCYTES % (AUTO) 5.5 % (3-13); PLATELET COUNT 132 10^3/uL (150-450); RED BLOOD COUNT 4.13 10^6/uL (4.35-5.55); RED CELL DISTRIBUTION WIDTH 18.2 % (11.5-14.0); SEGMENTED NEUTROPHILS % (AUTO) 88.3 % (42-78); TOTAL CELLS COUNTED % (AUTO) 100 %; WHITE BLOOD COUNT 13.8 10^3/uL (4.0-10.5)
[2020-03-30 04:55] LABS: INTERNATIONAL RATION (INR) 1.32; PROTHROMBIN TIME 16.6 SEC (11.4-15.4)
[2020-03-30 04:56] LABS: PARTIAL THROMBOPLASTIN TIME 49.7 SEC (23.5-35.8)
[2020-03-30 05:05] LABS: ALBUMIN 3.1 g/dL (3.5-5.0); ALKALINE PHOSPHATASE 211 U/L (38-126); ANION GAP 8 (5-19); ASPARTATE AMINO TRANSFERASE 98 U/L (17-59); BILIRUBIN,DIRECT 1.7 mg/dL (0.0-0.4); BILIRUBIN,TOTAL 3.3 mg/dL (0.2-1.3); BLOOD UREA NITROGEN 95 mg/dL (7-20); CALCIUM 8.6 mg/dL (8.4-10.2); CARBON DIOXIDE 33 mmol/L (22-30); CHLORIDE 82 mmol/L (98-107); GLUCOSE 174 mg/dL (75-110); POTASSIUM 3.6 mmol/L (3.6-5.0); TOTAL PROTEIN 6.5 g/dL (6.3-8.2)
[2020-03-30] MEDS: HYDRALAZINE HCL 50 MG TABLET PO SCH ×2 (06:37→21:47)
[2020-03-30] MEDS: HEPARIN SOD (PORCINE) 1,000 UNIT/ML 10 ML VIAL IV PRN ×2 (06:37→14:16)
[2020-03-30] MEDS: DOCUSATE SODIUM 100 MG CAPSULE PO SCH ×2 (11:05→17:53)
[2020-03-30] MEDS: FAMOTIDINE 20 MG TABLET PO SCH ×2 (11:05→21:47)
[2020-03-30] MEDS: FUROSEMIDE INJ/PF 40 MG/4 ML SDV IV SCH ×2 (11:06→21:48)
[2020-03-30] MEDS: CARVEDILOL 12.5 MG TABLET PO SCH ×2 (11:06→21:47)
[2020-03-30] MEDS: ASPIRIN 81 MG TABLET, CHEWABLE PO SCH (11:06)
[2020-03-30] MEDS ORDERED: HYDROCORTISONE ACETATE 25 MG SUPP.RECT PR PRN (11:18)
[2020-03-30 12:31] LABS: HEMATOCRIT 39.6 % (37.9-51.0); MEAN CORPUSCULAR HEMOGLOBIN 30.3 pg (27.0-33.4); MEAN CORPUSCULAR HGB CONC 32.8 g/dL (32.0-36.0); MEAN CORPUSCULAR VOLUME 93 fl (80-97); PLATELET COUNT 126 10^3/uL (150-450); RED BLOOD COUNT 4.28 10^6/uL (4.35-5.55); RED CELL DISTRIBUTION WIDTH 18.3 % (11.5-14.0)
[2020-03-30] MEDS: ENOXAPARIN SODIUM INJ 40 MG/0.4 ML DISP.SYRIN SUBCUT SCH (12:32)
[2020-03-30] MEDS ORDERED: NITROGLYCERIN 15 MG (0.6 MG/1 HR) PATCH.TD24 TD SCH (14:00)
[2020-03-30] MEDS ORDERED: HYDRALAZINE HCL 50 MG TABLET PO SCH (14:00)
[2020-03-30] MEDS ORDERED: HYDRALAZINE HCL INJ/PF 20 MG/1 ML SDV IV PRN (14:10)
[2020-03-30 15:36] LABS: HEPATITS B SURFACE ANTIGEN Negative (Negative)
[2020-03-30] MEDS: NITROGLYCERIN 15 MG (0.6 MG/1 HR) PATCH.TD24 TD SCH (16:59)
--- NOTE | 2020-03-30 18:01 | EKG REPORT ---
SEVERITY:- ABNORMAL ECG - SINUS RHYTHM PROBABLE LEFT ATRIAL ABNORMALITY LVH WITH IVCD AND SECONDARY REPOL ABNRM : Confirmed by: Celio Grigsby 30-Mar-2020 18:00:43
--- NOTE | 2020-03-30 18:29 | Progress Note ---
Provider Note Provider Note: CARDIOLOGY PROGRESS NOTE by Dr. Minnie Sage on 03/30/2020. OBJECTIVE: The patient has been transferred out of ICU. He is in the intermediate care unit on telemetry. His blood pressure still a little high. He denies any chest pain or discomfort. There is no shortness of breath. There is no PND orthopnea. His leg edema is much improved. There is no arrhythmias seen on the monitor. He has no cough or wheezing. PHYSICAL EXAMINATION: The patient is well-built and appears to be in no acute distress Selected Entries 03/30/20 03/30/20 03/30/20 14:28 14:59 15:00 Pulse Rate 75 Respiratory 17 Rate Blood Pressure 164/112 H Blood Pressure 129 Mean O2 Sat by Pulse 100 Oximetry Oxygen Delivery Room Air Method ( includes room air) Head: Is atraumatic normocephalic. EYES: Nipples are equal round regular reactive light accommodation. Extraocular movements are normal. There is no definite conjunctival pallor present there is no scleral icterus. Ears: Tympanic membranes are intact. External auditory canals are clear. NOSE: There is no deviated nasal septum. There is no inflammation of the nasal mucous membrane. MOUTH: Mucous membranes of mouth are moist. Tongue is moist. There is no ulcers. There is no bleeding from the gums. THROAT: There is no redness of the oropharynx. There is no exudates. SKIN: There is no skin rashes. There is no petechia or ecchymosis. There is no skin lesions. NECK: Supple. There is mild JVD present. Carotids are equal there is no bruit there is no lymphadenopathy. There is no goiter. Lungs: Clear to auscultation and percussion. There is no rhonchi rales or wheezing.. HEART: S1-S2 is heard. There is an S4 gallop present there is no S3 gallop. There is systolic murmur left sternal border and the apex of mitral regurgitation and tricuspid regurgitation. There is no aortic stenosis or aortic regurgitation murmur. There is no rub. ABDOMEN: Is soft. There is no hepatosplenomegaly. Bowel sounds well heard. There is no tender areas of masses. EXTREMITIES: Femorals a re well felt. There is no femoral bruits. Leg pulses are well felt. There is mild pedal edema bilaterally. There is no DVT or cellulitis. There is no calf tenderness. SWING RIDE OPERATOR: The patient is conscious awake alert oriented x3 with no focal focal deficits. PSYCHIATRIC: The patient judgment insight are intact his affect is normal. Labs- All tests 24 hr 03/30/20 03/30/20 03/30/20 04:32 04:32 04:32 WBC 13.8 H RBC 4.13 L Hgb 12.6 L Hct 38.2 MCV 93 MCH 30.6 MCHC 33.1 RDW 18.2 H Plt Count 132 L Lymph % (Auto) 5.9 L [place] % (Auto) 5.5 Eos % (Auto) 0.2 Baso % (Auto) 0.1 Absolute Neuts (auto) 12.1 H Absolute Lymphs (auto) 0.8 Absolute Monos (auto) 0.8 Absolute Eos (auto) 0.0 Absolute Basos (auto) 0.0 Seg Neutrophils % 88.3 H PT INR APTT Sodium 123.1 L Potassium 3.6 Chloride 82 L Carbon Dioxide 33 H Anion Gap 8 BUN 95 H Creatinine 3.17 H Est GFR ( Amer) 26 L Est GFR (MDRD) Non-Af 21 L Glucose 174 H Calcium 8.6 Phosphorus 5.0 H Total Bilirubin 3.3 H Direct Bilirubin 1.7 H Neonat Total Bilirubin Not Reportable Neonat Direct Bilirubin Not Reportable Neonat Indirect Bili Not Reportable GGT 206 H AST 98 H ALT 251 H Alkaline Phosphatase 211 H Ammonia NT-Pro-B Natriuret Pep 78260 H Total Protein 6.5 Albumin 3.1 L 03/30/20 03/30/20 03/30/20 04:32 04:32 12:15 WBC 13.0 H RBC 4.28 L Hgb 13.0 L Hct 39.6 MCV 93 MCH 30.3 MCHC 32.8 RDW 18.3 H Plt Count 126 L Lymph % (Auto) [place] % (Auto) Eos % (Auto) Baso % (Auto) Absolute Neuts (auto) Absolute Lymphs (auto) Absolute Monos (auto) Absolute Eos (auto) Absolute Basos (auto) Seg Neutrophils % PT 16.6 H INR 1.32 APTT 49.7 H Sodium Potassium Chloride Carbon Dioxide Anion Gap BUN Creatinine Est GFR ( Amer) Est GFR (MDRD) Non-Af Glucose Calcium Phosphorus Total Bilirubin Direct Bilirubin Neonat Total Bilirubin Neonat Direct Bilirubin Neonat Indirect Bili GGT AST ALT Alkaline Phosphatase Ammonia < 8.7 L NT-Pro-B Natriuret Pep Total Protein Albumin 03/30/20 13:21 WBC RBC Hgb Hct MCV MCH MCHC RDW Plt Count Lymph % (Auto) [place] % (Auto) Eos % (Auto) Baso % (Auto) Absolute Neuts (auto) Absolute Lymphs (auto) Absolute Monos (auto) Absolute Eos (auto) Absolute Basos (auto) Seg Neutrophils % PT INR APTT 57.1 H Sodium Potassium Chloride Carbon Dioxide Anion Gap BUN Creatinine Est GFR ( Amer) Est GFR (MDRD) Non-Af Glucose Calcium Phosphorus Total Bilirubin Direct Bilirubin Neonat Total Bilirubin Neonat Direct Bilirubin Neonat Indirect Bili GGT AST ALT Alkaline Phosphatase Ammonia NT-Pro-B Natriuret Pep Total Protein Albumin Chest X-Ray 03/28/20 19:06 IMPRESSION: There are no acute lung parenchymal findings. Mild enlargement of the cardiac silhouette. Chest X-Ray 03/29/20 06:00 IMPRESSION: Mild cardiomegaly without a superimposed acute cardiopulmonary process. IMPRESSION/RECOMMENDATION: 1. Hypertensive emergency with evidence of endorgan damage, there is cardiomyopathy with heart failure and renal failure and also abnormal liver enzymes indicating hepatic congestion. Would recommend starting the patient on a Cardene drip. Agree with Coreg but would increase the Coreg to 25 mg p.o. twice daily. Also increase the hydralazine to 70 mg p.o. every 8 hours. Will will start the patient on amlodipine, and continue transdermal nitro patch daily. 2. Congestive heart failure: Most likely this is acute on chronic heart failure. This is secondary to biventricular systolic heart failure. Although the patient states his symptoms started 2 weeks ago this probably is longsta nding due to untreated hypertension. 3. Dilated cardiomyopathy with severely reduced LV ejection fraction. 4. Elevated troponin levels. This is secondary to supply demand mismatch, due to type II myocardial infarctions, and not acute coronary syndrome. 5. Acute renal failure: Suspect this is acute on chronic renal failure. Avoid nephrotoxic drugs. 6. Intracardiac thrombus: Once the blood pressure is controlled would start the patient on heparin drip. Subsequently will place the patient on warfarin, since I am not sure if the patient can afford Eliquis. Continue the patient on hepa rin. Will start the patient on Coumadin. 7. At least moderate pulmonary hypertension: This is most likely secondary to left heart failure. Expect that this would improve with treatment of the radha ent's left heart failure. 8. Abnormal liver function tests secondary to right heart failure due to pulmonary hypertension. Would strongly avoid statins at this point. 9. Severe mitral regurgitation and tricuspid regurgitation. Expect this will improve with treatment of the patient's heart failure. 10. History of tobacco abuse: Tobacco cessation counseling done. Suspect the patient has an element of COPD also. Medications reviewed medications adjusted. Discussed with the event crew technician. Medical decision making is of high complexity. 60 minutes spent as patient more than 50% of time spent in direct patient care.
[2020-03-30] MEDS: AMLODIPINE BESYLATE 5 MG TABLET PO SCH (19:58)
--- NOTE | 2020-03-30 20:48 | Progress Note ---
Provider Note Provider Note: Patient downgraded from the ICU. Multiple cardiac issues including diastolic blood pressure consistently over 100 and into the teens. He has severe systolic heart failure with ejection fraction of 20%. He also has elevated transaminases. I increased his hydralazine dosing and have intravenous hydralazine available if needed. A nitroglycerin patch was added. He is already on carvedilol and aspirin. No statin therapy with his elevated transaminases. Dr. Song is also seeing the patient. We will formally picker box operator the patient tomorrow.
[2020-03-30] MEDS: WARFARIN SODIUM 2 MG TABLET PO SCH (21:47)
[2020-03-30] MEDS: HEPARIN SODIUM,PORCINE/D5W 25,000 UNIT/250 ML RTUINJ IV PRN (23:32)
[2020-03-31] MEDS: HYDRALAZINE HCL 50 MG TABLET PO SCH ×3 (05:45→21:16)
[2020-03-31] MEDS: AMLODIPINE BESYLATE 5 MG TABLET PO SCH ×2 (05:45→17:11)
[2020-03-31 07:12] LABS: HEPATITIS C VIRUS ANTIBODY 0.1 s/co ratio (0.0-0.9)
[2020-03-31 07:20] LABS: INTERNATIONAL RATION (INR) 1.26
[2020-03-31 07:44] LABS: ALBUMIN 2.9 g/dL (3.5-5.0); ALKALINE PHOSPHATASE 194 U/L (38-126); ANION GAP 8 (5-19); ASPARTATE AMINO TRANSFERASE 75 U/L (17-59); BILIRUBIN,DIRECT 1.5 mg/dL (0.0-0.4); BILIRUBIN,TOTAL 3.1 mg/dL (0.2-1.3); BLOOD UREA NITROGEN 73 mg/dL (7-20); CALCIUM 8.4 mg/dL (8.4-10.2); CARBON DIOXIDE 37 mmol/L (22-30); CHLORIDE 80 mmol/L (98-107); GLUCOSE 138 mg/dL (75-110); PHOSPHORUS 4.2 mg/dL (2.5-4.5); TOTAL PROTEIN 6.5 g/dL (6.3-8.2)
[2020-03-31 07:49] LABS: POTASSIUM 2.7 mmol/L (3.6-5.0)
[2020-03-31 07:56] LABS: APPEARANCE,URINE CLEAR; BILIRUBIN,URINE NEGATIVE (NEGATIVE); COLOR,URINE YELLOW; GLUCOSE, URINE NEGATIVE (NEGATIVE); KETONES,URINE NEGATIVE (NEGATIVE); LEUKOCYTE ESTERASE,URINE NEGATIVE (NEGATIVE); NITRITE,URINE NEGATIVE (NEGATIVE); PROTEIN,URINE 100 mg/dL (NEGATIVE)
[2020-03-31] MEDS: CARVEDILOL 12.5 MG TABLET PO SCH ×2 (09:21→21:18)
[2020-03-31] MEDS: ASPIRIN 81 MG TABLET, CHEWABLE PO SCH (09:22)
[2020-03-31] MEDS: POTASSIUM CHLORIDE 10 MEQ TABLET.ER PO SCH (09:22)
[2020-03-31] MEDS: FAMOTIDINE 20 MG TABLET PO SCH ×2 (09:22→21:18)
[2020-03-31] MEDS: DOCUSATE SODIUM 100 MG CAPSULE PO SCH ×2 (09:22→17:09)
[2020-03-31] MEDS: FUROSEMIDE INJ/PF 40 MG/4 ML SDV IV SCH ×2 (09:23→21:18)
[2020-03-31] MEDS: POTASSI CL 20 MEQ/50 ML RIDER 20 MEQ/50 ML RTUPB IV SCH ×2 (09:23→11:55)
--- NOTE | 2020-03-31 10:01 | Progress Note ---
Provider Note Provider Note: CARDIOLOGY PROGRESS NOTE by Dr. Minnie Sage on 03/31/2020. OBJECTIVE: Patient denies any chest pain or discomfort. He has no further shortness of breath. There is no PND orthopnea. He only has trace to mild pedal edema. There is no arrhythmias seen on the monitor. I have ordered we will do play to see if the patient is renal artery stenosis. The patient also I have discussed with him that he would be safer with a LifeVest on in view of the severe LV dysfunction. PHYSICAL EXAMINATION: The patient is well-built. In no acute distress. Selected Entries 03/31/20 03/31/20 08:14 10:00 Temperature 97.7 F Temperature Axillary Source Pulse Rate 71 Respiratory 19 Rate Respiratory Normal Pattern Blood Pressure 150/91 H Blood Pressure 110 Mean BP Location Right Arm BP Position Supine O2 Sat by Pulse 100 Oximetry Head: Is atraumatic normocephalic. EYES: Nipples are equal round regular reactive light accommodation. Extraocular movements are normal. There is no definite conjunctival pallor present there is no scleral icterus. Ears: Tympanic membranes are intact. External auditory canals are clear. NOSE: There is no deviated nasal septum. There is no inflammation of the nasal mucous membrane. MOUTH: Mucous membranes of mouth are moist. Tongue is moist. There is no ulcers. There is no bleeding from the gums. THROAT: There is no redness of the oropharynx. There is no exudates. SKIN: There is no skin rashes. There is no petechia or ecchymosis. There is no skin lesions. NECK: Supple. There is mild JVD present. Carotids are equal there is no bruit there is no lymphadenopathy. There is no goiter. Lungs: Clear to auscultation and percussion. There is no rhonchi rales or wheezing.. HEART: S1-S2 is heard. There is an S4 gallop present there is no S3 gallop. There is systolic murmur left sternal border and the apex of mitral regurgitation and tricuspid regurgitation. There is no aortic stenosis or aortic regurgitation murmur. There is no rub. ABDOMEN: Is soft. There is no hepatosplenomegaly. Bowel sounds well heard. There is no tender areas of masses. EXTREMITIES: Femorals are well felt. There is no femoral bruits. Leg pulses are well felt. There is mild pedal edema bilaterally. There is no DVT or cellulitis. There is no calf tenderness. FEATHER TRIMMER: The patient is conscious awake alert oriented x3 with no focal focal deficits. PSYCHIATRIC: The patient judgment insight are intact his affect is normal. Labs- All tests 24 hr 03/29/20 03/30/20 03/31/20 06:58 19:53 06:00 PT INR APTT 75.3 H Sodium Potassium Chloride Carbon Dioxide Anion Gap BUN Creatinine Est GFR ( Amer) Est GFR (MDRD) Non-Af Glucose Calcium Phosphorus Magnesium Total Bilirubin Direct Bilirubin Neonat Total Bilirubin Neonat Direct Bilirubin Neonat Indirect Bili AST ALT Alkaline Phosphatase NT-Pro-B Natriuret Pep Total Protein Albumin Urine Color YELLOW Urine Appearance CLEAR Urine pH 5.0 Ur Specific [place] 1.010 Urine Protein 100 H Urine Glucose (UA) NEGATIVE Urine Ketones NEGATIVE Urine Blood SMALL H Urine Nitrite NEGATIVE Urine Bilirubin NEGATIVE Urine Urobilinogen 2.0 H Ur Leukocyte Esterase NEGATIVE Urine WBC (Auto) 1 Urine RBC (Auto) 1 Squamous Epi Cells Auto <1 Urine Mucus (Auto) RARE Urine Ascorbic Acid NEGATIVE Hepatitis A IgM Ab Negative Hep Bs Antigen Negative Hep B Core IgM Ab Negative Hepatitis C Antibody 0.1 03/31/20 03/31/20 03/31/20 06:37 06:37 06:37 PT 16.0 H INR 1.26 APTT 61.0 H Sodium 124.9 L Potassium 2.7 L* Chloride 80 L Carbon Dioxide 37 H Anion Gap 8 BUN 73 H Creatinine 2.82 H Est GFR ( Amer) 29 L Est GFR (MDRD) Non-Af 24 L Glucose 138 H Calcium 8.4 Phosphorus 4.2 Magnesium Total Bilirubin 3.1 H Direct Bilirubin 1.5 H Neonat Total Bilirubin Not Reportable Neonat Direct Bilirubin Not Reportable Neonat Indirect Bili Not Reportable AST 75 H ALT 192 H Alkaline Phosphatase 194 H NT-Pro-B Natriuret Pep 38240 H Total Protein 6.5 Albumin 2.9 L Urine Color Urine Appearance Urine pH Ur Specific [place] Urine Protein Urine Glucose (UA) Urine Ketones Urine Blood Urine Nitrite Urine Bilirubin Urine Urobilinogen Ur Leukocyte Esterase Urine WBC (Auto) Urine RBC (Auto) Squamous Epi Cells Auto Urine Mucus (Auto) Urine Ascorbic Acid Hepatitis A IgM Ab Hep Bs Antigen Hep B Core IgM Ab Hepatitis C Antibody 03/31/20 15:53 PT INR APTT Sodium 122.3 L Potassium 3.6 Chloride 80 L Carbon Dioxide 33 H Anion Gap 9 BUN 65 H Creatinine 2.83 H Est GFR ( Amer) 29 L Est GFR (MDRD) Non-Af 24 L Glucose 197 H Calcium 8.0 L Phosphorus Magnesium 1.8 Total Bilirubin Direct Bilirubin Neonat Total Bilirubin Neonat Direct Bilirubin Neonat Indirect Bili AST ALT Alkaline Phosphatase NT-Pro-B Natriuret Pep Total Protein Albumin Urine Color Urine Appearance Urine pH Ur Specific [place] Urine Protein Urine Glucose (UA) Urine Ketones Urine Blood Urine Nitrite Urine Bilirubin Urine Urobilinogen Ur Leukocyte Esterase Urine WBC (Auto) Urine RBC (Auto) Squamous Epi Cells Auto Urine Mucus (Auto) Urine Ascorbic Acid Hepatitis A IgM Ab Hep Bs Antigen Hep B Core IgM Ab Hepatitis C Antibody Chest X-Ray 03/28/20 19:06 IMPRESSION: There are no acute lung parenchymal findings. Mild enlargement of the cardiac silhouette. Chest X-Ray 03/29/20 06:00 IMPRESSION: Mild cardiomegaly without a superimposed acute cardiopulmonary process. IMPRESSION/RECOMMENDATION: 1. Hypertensive emergency with evidence of endorgan damage, there is cardiomyopathy with heart failure and renal failure and also abnormal liver enzymes indicating hepatic congestion. Would recommend starting the patient on a Cardene drip. Agree with Coreg but would increase the Coreg to 25 mg p.o. twice daily. Also increase the hydralazine to 70 mg p.o. every 8 hours. Will will start the patient on amlodipine, and continue transdermal nitro patch daily. 2. Congestive heart failure: Most likely this is acute on chronic heart failur e. This is secondary to biventricular systolic heart failure. Although the patient states his symptoms started 2 weeks ago this probably is longstanding due to untreated hypertension. 3. Dilated cardiomyopathy with severely reduced LV ejection fraction. 4. Elevated troponin levels. This is secondary to supply demand mismatch, due to type II myocardial infarctions, and not acute coronary syndrome. 5. Acute renal failure: Suspect this is acute on chronic renal failure. Avoid nephrotoxic drugs. 6. Intracardiac thrombus: Once the blood pressure is controlled would start the patient on heparin drip. Subsequently will place the patient on warfarin, since I am not sure if the patient can afford Eliquis. Continue the patient on heparin. Will start the patient on Coumadin. 7. At least moderate pulmonary hypertension: This is most likely secondary to left heart failure. Expect that this would improve with treatment of the patient's left heart failure. 8. Abnormal liver function tests secondary to right heart failure due to pulmonary hypertension. Would strongly avoid statins at this point. 9. Severe mitral regurgitation and tricuspid regurgitation. Expect this will i mprove with treatment of the patient's heart failure. 10. History of tobacco abuse: Tobacco cessation counseling done. Suspect the patient has an element of COPD also. Medications reviewed medications adjusted. Discussed with the doctor of veterinary medicine. Medical decision making is of high complexity. 60 minutes spent as patient more than 50% of time spent in direct patient care.
--- NOTE | 2020-03-31 12:05 | RADIOLOGY REPORT (SQ) ---
EXAM DESCRIPTION: DUPLEX ART/JM FLOW COMPLETE IMAGES COMPLETED DATE/TIME: 03/31/2020 11:53 am REASON FOR STUDY: Renal Artery Stenosis([place] renal artery dopplers) COMPARISON: None. TECHNIQUE: Realtime and static grayscale images acquired. Selected color Doppler, velocities and spe ctral images recorded. LIMITATIONS: None. FINDINGS: RIGHT KIDNEY: RENAL ARTERY VELOCITIES: Origin: 37 Cm/sec. Mid: 36 Cm/sec. [place]: 27 Cm/sec. Segmental artery velocity 15 cm/sec. RENAL VEIN: Color doppler flow present, patent. VELOCITY RATIO: 0.5. Normal waveforms. KIDNEY: Normal size measuring 10.1 cm No significant pathology. LEFT KIDNEY: RENAL ARTERY VELOCITIES: Origin: Nonvisualized. Mid: 34 Cm/sec. [place]: 13 Cm/sec. Segmental ar issa velocity 13 cm/sec. RENAL VEIN: Color doppler flow present, patent. VELOCITY RATIO: 0.46. Normal waveforms. KIDNEY: Normal size measuring 10.8 cm. No significant pathology. BLADDER: Normal. OTHER: No other significant finding. IMPRESSION: NO DOPPLER EVIDENCE OF HEMODYNAMICALLY SIGNIFICANT RENAL ARTERY STENOSIS. COMMENT: NORMAL RENAL ARTERY/AORTA VELOCITY RATIO IS LESS THAN OR EQUAL TO 3.5. TECHNICAL DOCUMENTATION: JOB ID: [id number] 2010 [employer]- All Rights Reserved Reading location - IP/workstation name: [email or web address]
--- NOTE | 2020-03-31 15:04 | PDOC PROGRESS REPORT ---
Subjective Date:: 03/31/20 Subjective:: Resting in bed. His , I believe, is at the bedside. Reason For Visit: ACUTE DECOMPENSATED CONGESTIVE HEART FAILURE, Physical Exam Vital Signs: Temp Pulse Resp BP Pulse Ox 97.7 F 71 19 150/91 H 100 03/31/20 08:14 03/31/20 08:14 03/31/20 08:14 03/31/20 08:14 03/31/20 08:14 Intake & Output 03/30/20 03/31/20 04/01/20 06:59 06:59 06:59 Intake Total 2433 1070 530 Output Total 5850 2375 Balance -3417 -1305 530 Weight 95.3 kg 98.6 kg General appearance: PRESENT: cooperative, well-developed Head exam: PRESENT: atraumatic, normocephalic Respiratory exam: PRESENT: clear to auscultation raymnudo, symmetrical, unlabored. ABSENT: prolonged expiratory phas, rales, rhonchi, tachypnea, wheezes Cardiovascular exam: PRESENT: RRR, +S1, +S2, systolic murmur GI/Abdominal exam: PRESENT: normal bowel sounds, soft. ABSENT: tenderness Extremities exam: PRESENT: +1 edema Neurological exam: PRESENT: alert, awake, oriented to person, oriented to place, oriented to time, oriented to situation. ABSENT: altered Psychiatric exam: PRESENT: appropriate affect. ABSENT: agitated, anxious Focused psych exam: ABSENT: delusional, paranoid, restlessness Results Laboratory Results: 03/30/20 12:15 03/31/20 06:37 03/31/20 03/31/20 06:00 06:37 Sodium 124.9 L Potassium 2.7 L* Chloride 80 L Carbon Dioxide 37 H Anion Gap 8 BUN 73 H Creatinine 2.82 H Est GFR ( Amer) 29 L Glucose 138 H Calcium 8.4 Phosphorus 4.2 Total Bilirubin 3.1 H AST 75 H Alkaline Phosphatase 194 H Total Protein 6.5 Albumin 2.9 L Urine Color YELLOW Urine Appearance CLEAR Urine pH 5.0 Ur Specific [place] 1.010 Urine Protein 100 H Urine Glucose (UA) NEGATIVE Urine Ketones NEGATIVE Urine Blood SMALL H Urine Nitrite NEGATIVE Ur Leukocyte Esterase NEGATIVE Urine WBC (Auto) 1 Urine RBC (Auto) 1 03/28/20 03/29/20 03/29/20 20:45 01:01 06:58 Troponin I 0.181 0.173 0.190 NT-Pro-B Natriuret Pep 23058 H 03/29/20 03/29/20 03/30/20 06:58 12:26 04:32 Troponin I 0.164 NT-Pro-B Natriuret Pep 45503 H 36072 H 03/31/20 06:37 Troponin I NT-Pro-B Natriuret Pep 24569 H Impressions: Chest X-Ray 03/29/20 06:00 IMPRESSION: Mild cardiomegaly without a superimposed acute cardiopulmonary process. Renal Artery Duplex 03/31/20 00:00 IMPRESSION: NO DOPPLER EVIDENCE OF HEMODYNAMICALLY SIGNIFICANT RENAL ARTERY STENOSIS. Assessment and Plan - Diagnosis (2) Acute kidney injury Is this a current diagnosis for this admission?: Yes (3) Elevated liver enzymes Is this a current diagnosis for this admission?: Yes (4) Heart failure with acute decompensation, type unknown Qualifiers: Heart failure type: unspecified Qualified Code(s): I50.9 - Heart failure, unspecified Is this a current diagnosis for this admission?: Yes (5) Hypertensive emergency Is this a current diagnosis for this admission?: Yes (6) Hyponatremia Is this a current diagnosis for this admission?: Yes (8) Non-STEMI (non-ST elevated myocardial infarction) Is this a current diagnosis for this admission?: Yes - Plan Summary Summary: 03/31/2020 Due to depressed ejection fraction from hypertensive cardiomyopathy the patient will need a LifeVest. As soon as the patient is therapeutic on warfarin heparin can be discontinued. He will need to follow-up echocardiogram as an outpatient. Change furosemide to oral dosing Recheck laboratory studies in the morning - Time Time Spent with patient: 15-24 minutes Medications reviewed and adjusted accordingly: Yes Anticipated Discharge Disposition: Home, Self Care Anticipated Discharge Timeframe: within 72 hours
[2020-03-31] MEDS: NITROGLYCERIN 15 MG (0.6 MG/1 HR) PATCH.TD24 TD SCH (15:38)
[2020-03-31 17:06] LABS: ANION GAP 9 (5-19); BLOOD UREA NITROGEN 65 mg/dL (7-20); CARBON DIOXIDE 33 mmol/L (22-30); CHLORIDE 80 mmol/L (98-107); GLUCOSE 197 mg/dL (75-110); POTASSIUM 3.6 mmol/L (3.6-5.0)
[2020-03-31] MEDS: WARFARIN SODIUM 2 MG TABLET PO SCH (21:18)
[2020-03-31] MEDS: HEPARIN SODIUM,PORCINE/D5W 25,000 UNIT/250 ML RTUINJ IV PRN (21:19)
[2020-04-01] MEDS: HYDRALAZINE HCL 50 MG TABLET PO SCH ×3 (05:56→21:49)
[2020-04-01] MEDS: AMLODIPINE BESYLATE 5 MG TABLET PO SCH ×2 (05:56→17:07)
[2020-04-01 06:30] LABS: INTERNATIONAL RATION (INR) 1.19; PROTHROMBIN TIME 15.3 SEC (11.4-15.4)
[2020-04-01 06:31] LABS: PARTIAL THROMBOPLASTIN TIME 55.8 SEC (23.5-35.8)
[2020-04-01 06:47] LABS: ALBUMIN 3.1 g/dL (3.5-5.0); ALKALINE PHOSPHATASE 182 U/L (38-126); ANION GAP 9 (5-19); ASPARTATE AMINO TRANSFERASE 65 U/L (17-59); BILIRUBIN,DIRECT 2.1 mg/dL (0.0-0.4); BILIRUBIN,TOTAL 4.3 mg/dL (0.2-1.3); BLOOD UREA NITROGEN 64 mg/dL (7-20); CALCIUM 8.7 mg/dL (8.4-10.2); CARBON DIOXIDE 32 mmol/L (22-30); CHLORIDE 82 mmol/L (98-107); GLUCOSE 130 mg/dL (75-110); PHOSPHORUS 3.8 mg/dL (2.5-4.5); POTASSIUM 3.9 mmol/L (3.6-5.0); TOTAL PROTEIN 6.9 g/dL (6.3-8.2)
[2020-04-01] MEDS: POTASSIUM CHLORIDE 10 MEQ TABLET.ER PO SCH (09:15)
[2020-04-01] MEDS: CARVEDILOL 12.5 MG TABLET PO SCH ×2 (09:15→21:49)
[2020-04-01] MEDS: FAMOTIDINE 20 MG TABLET PO SCH ×2 (09:15→21:49)
[2020-04-01] MEDS: ASPIRIN 81 MG TABLET, CHEWABLE PO SCH (09:15)
[2020-04-01] MEDS: DOCUSATE SODIUM 100 MG CAPSULE PO SCH ×2 (09:17→17:20)
[2020-04-01] MEDS ORDERED: FUROSEMIDE 40 MG TABLET PO SCH (10:00)
[2020-04-01] MEDS ORDERED: DIBUCAINE 1% OINTMENT 28 GM TP PRN (13:01)
--- NOTE | 2020-04-01 13:04 | PDOC PROGRESS REPORT ---
Subjective Date:: 04/01/20 Subjective:: Patient is doing well. His sister is at the bedside. Reason For Visit: ACUTE DECOMPENSATED CONGESTIVE HEART FAILURE, Physical Exam Vital Signs: Temp Pulse Resp BP Pulse Ox 97.6 F 63 16 138/95 H 99 04/01/20 10:00 04/01/20 08:10 04/01/20 08:10 04/01/20 08:10 04/01/20 08:10 Intake & Output 03/31/20 04/01/20 04/02/20 06:59 06:59 06:59 Intake Total 1070 1754 Output Total 2375 500 Balance -1305 1254 Weight 98.6 kg General appearance: PRESENT: no acute distress, cooperative Head exam: PRESENT: atraumatic, normocephalic Eye exam: PRESENT: conjunctiva pink. ABSENT: scleral icterus Respiratory exam: PRESENT: clear to auscultation raymundo, symmetrical, unlabored. ABSENT: rales, rhonchi, tachypnea, wheezes Cardiovascular exam: PRESENT: RRR, +S1, +S2, systolic murmur - 3/6. ABSENT: bradycardia, diastolic murmur, irregular rhythm, tachycardia GI/Abdominal exam: PRESENT: normal bowel sounds, soft. ABSENT: distended, guarding, tenderness Rectal exam: PRESENT: deferred Gentrourinary exam: ABSENT: indwelling catheter Extremities exam: PRESENT: +1 edema Musculoskeletal exam: PRESENT: ambulatory. ABSENT: deformity, dislocation Neurological exam: PRESENT: alert, awake, oriented to person, oriented to place, oriented to time, oriented to situation, CN II-XII grossly intact. ABSENT: altered Psychiatric exam: PRESENT: appropriate affect. ABSENT: agitated, anxious Focused psych exam: ABSENT: delusional, paranoid, restlessness Skin exam: PRESENT: other - The patient has petechial-like lesions on both legs. Many of the lesions have a pale center. They are not itchy. They are not par ticularly painful and they are not warm to the touch. Results Laboratory Results: 03/30/20 12:15 04/01/20 05:42 03/31/20 04/01/20 15:53 05:42 Sodium 122.3 L 123.4 L Potassium 3.6 3.9 Chloride 80 L 82 L Carbon Dioxide 33 H 32 H Anion Gap 9 9 BUN 65 H 64 H Creatinine 2.83 H 2.71 H Est GFR ( Amer) 29 L 31 L Glucose 197 H 130 H Calcium 8.0 L 8.7 Phosphorus 3.8 Magnesium 1.8 Total Bilirubin 4.3 H AST 65 H Alkaline Phosphatase 182 H Total Protein 6.9 Albumin 3.1 L 03/28/20 03/29/20 03/29/20 20:45 01:01 06:58 Troponin I 0.181 0.173 0.190 NT-Pro-B Natriuret Pep 90747 H 03/29/20 03/29/20 03/30/20 06:58 12:26 04:32 Troponin I 0.164 NT-Pro-B Natriuret Pep 52037 H 79166 H 03/31/20 04/01/20 06:37 05:42 Troponin I NT-Pro-B Natriuret Pep 36072 H 87987 H Impressions: Chest X-Ray 03/29/20 06:00 IMPRESSION: Mild cardiomegaly without a superimposed acute cardiopulmonary pro cess. Renal Artery Duplex 03/31/20 00:00 IMPRESSION: NO DOPPLER EVIDENCE OF HEMODYNAMICALLY SIGNIFICANT RENAL ARTERY STENOSIS. Assessment and Plan - Diagnosis (2) Acute kidney injury Is this a current diagnosis for this admission?: Yes (3) Elevated liver enzymes Is this a current diagnosis for this admission?: Yes (4) Heart failure with acute decompensation, type unknown Qualifiers: Heart failure type: unspecified Qualified Code(s): I50.9 - Heart failure, unspecified Is this a current diagnosis for this admission?: Yes (5) Hypertensive emergency Is this a current diagnosis for this admission?: Yes (6) Hyponatremia Is this a current diagnosis for this admission?: Yes (8) Non-STEMI (non-ST elevated myocardial infarction) Is this a current diagnosis for this admission?: Yes (9) Hemorrhoids Qualifiers: Hemorrhoid type: unspecified Qualified Code(s): K64.9 - Unspecified hemorrhoids Is this a current diagnosis for this admission?: Yes (10) Vasculitis Is this a current diagnosis for this admission?: Yes - Plan Summary Summary: 03/31/2020 Due to depressed ejection fraction from hypertensive cardiomyopathy the patient will need a LifeVest. As soon as the patient is therapeutic on warfarin heparin can be discontinued. He will need to follow-up echocardiogram as an outpatient. Change furosemide to oral dosing Recheck laboratory studies in the morning 04/01/2020 Awaiting INR to reach therapeutic dose so that warfarin may continue and we can discontinue the heparin infusion. The rash on the patient's leg had a petechial quality however platelet count was still normal. This certainly could be vasculitis and I have ordered a dose of Solu-Medrol. I will reassess tomorrow. Awaiting processing for LifeVest. Change furosemide to 80 mg p.o. twice a day. Continue to monitor electrolytes. BUN and creatinine starting to rise again. This could be due to diuresis. It may likely be hypertensive nephropathy. I will institute a 1.5 L fluid restriction and decrease the furosemide slightly. The furosemide is likely contributing to the hyponatremia. Hemorrhoid cream ordered for the patient. - Time Time Spent with patient: 25-34 minutes Medications reviewed and adjusted accordingly: Yes Anticipated Discharge Disposition: Home, Self Care Anticipated Discharge Timeframe: Unknown
[2020-04-01] MEDS: NITROGLYCERIN 15 MG (0.6 MG/1 HR) PATCH.TD24 TD SCH (14:17)
[2020-04-01] MEDS: FUROSEMIDE 40 MG TABLET PO SCH (17:07)
[2020-04-01] MEDS: HEPARIN SODIUM,PORCINE/D5W 25,000 UNIT/250 ML RTUINJ IV PRN (17:10)
--- NOTE | 2020-04-01 18:24 | Progress Note ---
Provider Note Provider Note: CARDIOLOGY PROGRESS NOTE by Dr. Minnie Sage on 04/01/2020. SUBJECTIVE: The patient states he is feeling much better. He denies any chest pain or discomfort. There is no shortness of breath. There is no PND or orthopnea. The patient states that he walked up to the bathroom without any shortness of breath. There is no arrhythmias seen on the monitor. His blood pressure is much better controlled. His kidney function is slightly improved but still he is a chronic kidney disease stage III level. There is no TIA CVA symptoms. There is no peripheral embolization. There is no bleeding on heparin and Coumadin. The patient's INR is still 1.19 and has not budged. Hence we will increase the Coumadin to 5 mg p.o. nightly. Strongly recommend the patient have a LifeVest in view of the patient's severely reduced LV ejection fraction. His renal artery Doppler shows no evidence of renal artery stenosis. PHYSICAL EXAMINATION: The patient is well-built and well-nourished at present in no acute distress Selected Entries 04/01/20 12:58 Temperature 97.8 F Temperature Axillary Source Pulse Rate 71 Respiratory 18 Rate Blood Pressure 148/93 H Blood Pressure 111 Mean BP Location Right Arm BP Position Supine O2 Sat by Pulse 99 Oximetry Oxygen Delivery Room Air Method Head: Is atraumatic normocephalic. EYES: Nipples are equal round regular reactive light accommodation. Extraocular movements are normal. There is no definite conjunctival pallor present there is no scleral icterus. Ears: Tympanic membranes are intact. External auditory canals are clear. NOSE: There is no deviated nasal septum. There is no inflammation of the nasal mucous membrane. MOUTH: Mucous membranes of mouth are moist. Tongue is moist. There is no ulcers. There is no bleeding from the gums. THROAT: There is no redness of the oropharynx. There is no exudates. SKIN: There is no skin rashes. There is no petechia or ecchymosis. There is no skin lesions. NECK: Supple. There is mild JVD present. Carotids are equal there is no bruit there is no lymphade nopathy. There is no goiter. Lungs: Clear to auscultation and percussion. There is no rhonchi rales or wheezing.. HEART: S1-S2 is heard. There is an S4 gallop present there is no S3 gallop. There is systolic murmur left sternal border and the apex of mitral regurgitation and tricuspid regurgitation. There is no aortic stenosis or aortic regurgitation murmur. There is no rub. ABDOMEN: Is soft. There is no hepatosplenomegaly. Bowel sounds well heard. There is no tender areas of masses. EXTREMITIES: Femorals are well felt. There is no femoral bruits. Leg pulses are well felt. There is trace to mild pedal edema bilaterally. There is no DVT or cellulitis. There is no calf tenderness. GRAVITY PROSPECTOR: The patient is conscious awake alert oriented x3 with no focal focal deficits. PSYCHIATRIC: The patient judgment insight are intact his affect is normal. Labs- All tests 24 hr 04/01/20 04/01/20 04/01/20 05:42 05:42 05:42 PT 15.3 INR 1.19 APTT 55.8 H Sodium 123.4 L Potassium 3.9 Chloride 82 L Carbon Dioxide 32 H Anion Gap 9 BUN 64 H Creatinine 2.71 H Est GFR ( Amer) 31 L Est GFR (MDRD) Non-Af 25 L Glucose 130 H Calcium 8.7 Phosphorus 3.8 Total Bilirubin 4.3 H Direct Bilirubin 2.1 H Neonat Total Bilirubin Not Reportable Neonat Direct Bilirubin Not Reportable Neonat Indirect Bili Not Reportable AST 65 H ALT 160 H Alkaline Phosphatase 182 H NT-Pro-B Natriuret Pep 31833 H Total Protein 6.9 Albumin 3.1 L 04/01/20 15:02 PT INR APTT 72.0 H Sodium Potassium Chloride Carbon Dioxide Anion Gap BUN Creatinine Est GFR ( Amer) Est GFR (MDRD) Non-Af Glucose Calcium Phosphorus Total Bilirubin Direct Bilirubin Neonat Total Bilirubin Neonat Direct Bilirubin Neonat Indirect Bili AST ALT Alkaline Phosphatase NT-Pro-B Natriuret Pep Total Protein Albumin Chest X-Ray 03/28/20 19:06 IMPRESSION: There are no acute lung parenchymal findings. Mild enlargement of the cardiac silhouette. Chest X-Ray 03/29/20 06:00 IMPRESSION: Mild cardiomegaly without a superimposed acute cardiopulmonary process. Renal Artery Duplex 03/31/20 00:00 IMPRESSION: NO DOPPLER EVIDENCE OF HEMODYNAMICALLY SIGNIFICANT RENAL ARTERY STENOSIS. IMPRESSION/RECOMMENDATION: 1. Hypertensive emergency with evidence of endorgan damage, there is card iomyopathy with heart failure and renal failure and also abnormal liver enzymes indicating hepatic congestion. Would recommend starting the patient on a Cardene drip. Agree with Coreg but would increase the Coreg to 25 mg p.o. twice daily. Also increase the hydralazine to 70 mg p.o. every 8 hours. Will will start the patient on amlodipine, and continue transdermal nitro patch daily. 2. Congestive heart failure: Most likely this is acute on chronic heart failure. This is secondary to biventricular systolic heart failure. Although the patient states his symptoms started 2 weeks ago this probably is longstanding due to untreated hypertension. 3. Dilated cardiomyopathy with severely reduced LV ejection fraction. 4. Elevated troponin levels. This is secondary to supply demand mismatch, due to type II myocardial infarctions, and not acute coronary syndrome. 5. Acute renal failure: Suspect this is acute on chronic renal failure. Avoid nephrotoxic drugs. At present renal function is improved to chronic kidney disease stage III 6. Intracardiac thrombus: Once the blood pressure is controlled would start the patient on heparin drip. Subsequently will place the patient on warfarin, since I am not sure if the patient can afford Eliquis. Continue the patient on heparin. Will start the patient on Coumadin. 7. At least moderate pulmonary hypertension: This is most likely secondary to left heart failure. Expect that this would improve with treatment of the patient's left heart failure. 8. Abnormal liver function tests secondary to right heart failure due to pul monary hypertension. Would strongly avoid statins at this point. 9. Severe mitral regurgitation and tricuspid regurgitation. Expect this will improve with treatment of the patient's heart failure. 10. History of tobacco abuse: Tobacco cessation counseling done. Suspect the patient has an element of COPD also. Medications reviewed medications adjusted. Discussed with the dental surgeon. Med [facility] decision making is of high complexity. 60 minutes spent as patient more than 50% of time spent in direct patient care.
[2020-04-01 20:06] LABS: ABSOLUTE EOSINOPHILS # (AUTO) 0.1 10^3/uL (0.0-0.6); ABSOLUTE LYMPHOCYTES (AUTO) 1.2 10^3/uL (0.5-4.7); ABSOLUTE MONOCYTES (AUTO) 0.9 10^3/uL (0.1-1.4); BASOPHILS % (AUTO) 0.2 % (0-2); EOSINOPHILS % (AUTO) 0.5 % (0-6); HEMATOCRIT 35.1 % (37.9-51.0); HEMOGLOBIN 11.5 g/dL (13.5-17.0); LYMPHOCYTES % (AUTO) 9.9 % (13-45); MEAN CORPUSCULAR HEMOGLOBIN 30.2 pg (27.0-33.4); MEAN CORPUSCULAR HGB CONC 32.8 g/dL (32.0-36.0); MEAN CORPUSCULAR VOLUME 92 fl (80-97); MONOCYTES % (AUTO) 7.5 % (3-13); PLATELET COUNT 143 10^3/uL (150-450); RED BLOOD COUNT 3.81 10^6/uL (4.35-5.55); RED CELL DISTRIBUTION WIDTH 18.9 % (11.5-14.0); SEGMENTED NEUTROPHILS % (AUTO) 81.9 % (42-78); TOTAL CELLS COUNTED % (AUTO) 100 %; WHITE BLOOD COUNT 12.2 10^3/uL (4.0-10.5)
[2020-04-01 20:24] LABS: ALBUMIN 2.7 g/dL (3.5-5.0); ALKALINE PHOSPHATASE 163 U/L (38-126); ANION GAP 9 (5-19); ASPARTATE AMINO TRANSFERASE 50 U/L (17-59); BILIRUBIN,TOTAL 3.3 mg/dL (0.2-1.3); BLOOD UREA NITROGEN 64 mg/dL (7-20); CALCIUM 8.2 mg/dL (8.4-10.2); CARBON DIOXIDE 33 mmol/L (22-30); CHLORIDE 81 mmol/L (98-107); GLUCOSE 249 mg/dL (75-110); POTASSIUM 3.9 mmol/L (3.6-5.0); TOTAL PROTEIN 6.1 g/dL (6.3-8.2)
[2020-04-01] MEDS ORDERED: METHYLPREDNISOLONE INJ 40 MG/1 ML SDV IV ONE (21:00)
[2020-04-01] MEDS ORDERED: WARFARIN SODIUM 3 MG TABLET PO SCH ×2 (22:00)
[2020-04-02 04:37] LABS: HEMATOCRIT 35.4 % (37.9-51.0); HEMOGLOBIN 11.7 g/dL (13.5-17.0); MEAN CORPUSCULAR HEMOGLOBIN 30.3 pg (27.0-33.4); MEAN CORPUSCULAR HGB CONC 32.9 g/dL (32.0-36.0); MEAN CORPUSCULAR VOLUME 92 fl (80-97); PLATELET COUNT 155 10^3/uL (150-450); RED BLOOD COUNT 3.86 10^6/uL (4.35-5.55); RED CELL DISTRIBUTION WIDTH 18.6 % (11.5-14.0); WHITE BLOOD COUNT 10.4 10^3/uL (4.0-10.5)
[2020-04-02 04:40] LABS: INTERNATIONAL RATION (INR) 1.23; PROTHROMBIN TIME 15.7 SEC (11.4-15.4)
[2020-04-02 04:41] LABS: PARTIAL THROMBOPLASTIN TIME 64.8 SEC (23.5-35.8)
[2020-04-02 05:00] LABS: ALBUMIN 2.9 g/dL (3.5-5.0); ALKALINE PHOSPHATASE 165 U/L (38-126); ANION GAP 10 (5-19); ASPARTATE AMINO TRANSFERASE 49 U/L (17-59); BILIRUBIN,DIRECT 2.1 mg/dL (0.0-0.4); BILIRUBIN,TOTAL 3.5 mg/dL (0.2-1.3); BLOOD UREA NITROGEN 61 mg/dL (7-20); CALCIUM 8.4 mg/dL (8.4-10.2); CARBON DIOXIDE 31 mmol/L (22-30); CHLORIDE 83 mmol/L (98-107); GLUCOSE 256 mg/dL (75-110); TOTAL PROTEIN 6.3 g/dL (6.3-8.2)
[2020-04-02] MEDS: HYDRALAZINE HCL 50 MG TABLET PO SCH ×3 (05:56→22:49)
[2020-04-02] MEDS: AMLODIPINE BESYLATE 5 MG TABLET PO SCH ×2 (05:56→17:45)
--- NOTE | 2020-04-02 08:38 | RADIOLOGY REPORT (SQ) ---
EXAM DESCRIPTION: U/S ABDOMEN LTD W/DOPPLER IMAGES COMPLETED DATE/TIME: 04/01/2020 5:04 pm REASON FOR STUDY: Assess right upper quadrant (liver) COMPARISON: None. TECHNIQUE: Dynamic and static grayscale images acquired of the abdomen and recorded on PACS. Additio soniya selected color Doppler and spectral images recorded. LIMITATIONS: None. FINDINGS: PANCREAS: The visualized portions of the pancreas appear normal LIVER: Normal contour and echotexture of the liver. LIVER VASCULATURE: Hepatopetal directional flow in the portal veins. GALLBLADDER: The gallbladder is contracted. There are shadowing echogenic calculi within the gallbla dder lumen. There is no pericholecystic fluid or sludge. ULTRASOUND-DETECTED DURAN'S SIGN: Negative. INTRAHEPATIC DUCTS AND COMMON DUCT: The common bile duct measures 3 mm in diameter. There is no dila tation of the intrahepatic ducts. INFERIOR VENA CAVA: Not assessed. AORTA: No aneurysm. RIGHT KIDNEY: The right kidney measures 11.9 cm in length. There is no hydronephrosis. PERITONEAL AND RIGHT PLEURAL SPACE: Trace right-sided pleural effusion. OTHER: No other findings. IMPRESSION: 1. Shadowing echogenic calculi within the contracted gallbladder. 2. Normal contour and echotexture of the liver. 3. Trace right-sided pleural effusion. TECHNICAL DOCUMENTATION: JOB ID: [id number] [employer]- All Rights Reserved Reading location - IP/workstation name: [email or web address]
[2020-04-02] MEDS: CARVEDILOL 12.5 MG TABLET PO SCH ×2 (11:11→22:50)
[2020-04-02] MEDS: LOSARTAN POTASSIUM 25 MG TABLET PO SCH (11:12)
[2020-04-02] MEDS: FUROSEMIDE 40 MG TABLET PO SCH ×2 (11:12→17:45)
[2020-04-02] MEDS: POTASSIUM CHLORIDE 10 MEQ TABLET.ER PO SCH (11:12)
[2020-04-02] MEDS: ASPIRIN 81 MG TABLET, CHEWABLE PO SCH (11:12)
[2020-04-02] MEDS: DOCUSATE SODIUM 100 MG CAPSULE PO SCH ×2 (11:12→17:45)
[2020-04-02] MEDS: FAMOTIDINE 20 MG TABLET PO SCH ×2 (11:12→22:51)
[2020-04-02] MEDS: HEPARIN SODIUM,PORCINE/D5W 25,000 UNIT/250 ML RTUINJ IV PRN (11:20)
--- NOTE | 2020-04-02 12:58 | Progress Note ---
Provider Note Provider Note: CARDIOLOGY PROGRESS NOTE by Dr. Minnie Sage on 04/02/2020. SUBJECTIVE: The patient states he is feeling much better. He denies any chest pain or discomfort. There is no shortness of breath. There is no PND or orthopnea. The patient states that he walked up to the bathroom without any shortness of breath. There is no arrhythmias seen on the monitor. His blood pressure is much better controlled. His kidney function is slightly improved but still he is a chronic kidney disease stage III level. There is no TIA CVA symptoms. There is no peripheral embolization. There is no bleeding on heparin and Coumadin. The patient's INR is still 1.23.Hence we will incrase the Coumadin to 7.5 mg p.o. nightly. Strongly recommend the patient have a LifeVest in view of the patient's severely reduced LV ejection fraction. His renal artery Doppler shows no evidence of renal artery stenosis.His Bp is still not well controlled.Will add clonidine. PHYSICAL EXAMINATION: The patient is well-built and well-nourished at present in no acute distress Selected Entries 04/02/20 12:11 Temperature 97.7 F Temperature Axillary Source Pulse Rate 78 Respiratory 18 Rate Blood Pressure 157/97 H Blood Pressure 117 Mean BP Location Right Arm BP Position Supine O2 Sat by Pulse 93 Oximetry Oxygen Delivery Room Air Method Head: Is atraumatic normocephalic. EYES: Nipples are equal round regular reactive light accommodation. Extraocular movements are normal. There is no definite conjunctival pallor present there is no scleral icterus. Ears: Tympanic membranes are intact. External auditory canals are clear. NOSE: There is no deviated nasal septum. There is no inflammation of the nasal mucous membrane. MOUTH: Mucous membranes of mouth are moist. Tongue is moist. There is no ulcers. There is no bleeding from the gums. THROAT: There is no redness of the oropharynx. There is no exudates. SKIN: There is no skin rashes. There is no petechia or ecchymosis. There is no skin lesions. NECK: Supple. There is mild JVD present. Carotids are equal there is no bruit there is no lymphadenopathy. There is no goiter. Lungs: Clear to auscultation and percussion. There is no rhonchi rales or wheezing.. HEART: S1-S2 is heard. There is an S4 gallop present there is no S3 gallop. There is systolic murmur left sternal border and the apex of mitral regurgitation and tricuspid regurgitation. There is no aortic stenosis or aortic regurgitation murmur. There is no rub. ABDOMEN: Is soft. There is no hepatosplenomegaly. Bowel sounds well heard. There is no tender areas of masses. EXTREMITIES: Femorals are well felt. There is no femoral bruits. Leg pulses are well felt. There is trace to mild pedal edema bilaterally. There is no DVT or cellulitis. There is no calf tenderness. 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 PSYCHIATRIC: The patient judgment insight are intact his affect is normal. Labs- All tests 24 hr 04/01/20 04/01/20 04/01/20 15:02 16:45 19:45 WBC 12.2 H RBC 3.81 L Hgb 11.5 L Hct 35.1 L MCV 92 MCH 30.2 MCHC 32.8 RDW 18.9 H Plt Count 143 L Lymph % (Auto) 9.9 L [place] % (Auto) 7.5 Eos % (Auto) 0.5 Baso % (Auto) 0.2 Absolute Neuts (auto) 10.0 H Absolute Lymphs (auto) 1.2 Absolute Monos (auto) 0.9 Absolute Eos (auto) 0.1 Absolute Basos (auto) 0.0 Seg Neutrophils % 81.9 H ESR PT INR APTT 72.0 H Sodium 122.7 L Potassium 3.9 Chloride 81 L Carbon Dioxide 33 H Anion Gap 9 BUN 64 H Creatinine 2.85 H Est GFR ( Amer) 29 L Est GFR (MDRD) Non-Af 24 L Glucose 249 H Calcium 8.2 L Total Bilirubin 3.3 H Direct Bilirubin 2.0 H Neonat Total Bilirubin Not Reportable Neonat Direct Bilirubin Not Reportable Neonat Indirect Bili Not Reportable AST 50 ALT 117 H Alkaline Phosphatase 163 H Total Protein 6.1 L Albumin 2.7 L 04/02/20 04/02/20 04/02/20 03:50 03:57 03:57 WBC 10.4 RBC 3.86 L Hgb 11.7 L Hct 35.4 L MCV 92 MCH 30.3 MCHC 32.9 RDW 18.6 H Plt Count 155 Lymph % (Auto) [place] % (Auto) Eos % (Auto) Baso % (Auto) Absolute Neuts (auto) Absolute Lymphs (auto) Absolute Monos (auto) Absolute Eos (auto) Absolute Basos (auto) Seg Neutrophils % ESR PT 15.7 H INR 1.23 APTT 64.8 H Sodium 123.7 L Potassium 4.0 Chloride 83 L Carbon Dioxide 31 H Anion Gap 10 BUN 61 H Creatinine 2.73 H Est GFR ( Amer) 30 L Est GFR (MDRD) Non-Af 25 L Glucose 256 H Calcium 8.4 Total Bilirubin 3.5 H Direct Bilirubin 2.1 H Neonat Total Bilirubin Not Reportable Neonat Direct Bilirubin Not Reportable Neonat Indirect Bili Not Reportable AST 49 ALT 124 H Alkaline Phosphatase 165 H Total Protein 6.3 Albumin 2.9 L 04/02/20 03:57 WBC RBC Hgb Hct MCV MCH MCHC RDW Plt Count Lymph % (Auto) [place] % (Auto) Eos % (Auto) Baso % (Auto) Absolute Neuts (auto) Absolute Lymphs (auto) Absolute Monos (auto) Absolute Eos (auto) Absolute Basos (auto) Seg Neutrophils % ESR 23 H PT INR APTT Sodium Potassium Chloride Carbon Dioxide Anion Gap BUN Creatinine Est GFR ( Amer) Est GFR (MDRD) Non-Af Glucose Calcium Total Bilirubin Direct Bilirubin Neonat Total Bilirubin Neonat Direct Bilirubin Neonat Indirect Bili AST ALT Alkaline Phosphatase Total Protein Albumin Chest X-Ray 03/28/20 19:06 IMPRESSION: There are no acute lung parenchymal findings. Mild enlargement of the cardiac silhouette. Chest X-Ray 03/29/20 06:00 IMPRESSION: Mild cardiomegaly without a superimposed acute cardiopulmonary process. Renal Artery Duplex 03/31/20 00:00 IMPRESSION: NO DOPPLER EVIDENCE OF HEMODYNAMICALLY SIGNIFICANT RENAL ARTERY STENOSIS. Abdomen Ultrasound 04/01/20 00:00 IMPRESSION: 1. Shadowing echogenic calculi within the contracted gallbladder. 2. Normal contour and echotexture of the liver. 3. Trace right-sided pleural effusion. IMPRESSION/RECOMMENDATION: 1. Hypertensive emergency with evidence of endorgan damage, there is cardiomyopathy with heart failure and renal failure and also abnormal liver enzymes indicating hepatic congestion. Would recommend starting the patient on a Cardene drip. Agree with Coreg but would increase the Coreg to 25 mg p.o. twice daily. Also increase the hydralazine to 70 mg p.o. every 8 hours. Will continue on amlodipine, and continue transdermal nitro patch daily. Will start patient on clonidine 0.1 mg po Q12H, and incrase as needed and tolerated. 2. Congestive heart failure: Most likely this is acute on chronic heart failure. This is secondary to biventricular systolic heart failure. Although the patient states his symptoms started 2 weeks ago this probably is longstanding due to untreated hypertension. 3. Dilated cardiomyopathy with severely reduced LV ejection fraction.Will order 'Lifevest'. 4. Elevated troponin levels. This is secondary to supply demand mismatch, due to type II myocardial infarctions, and not acute coronary syndrome. 5. Acute renal failure: Suspect this is acute on chronic renal failure. Avoid nephrotoxic drugs. At present renal function is improved to chronic kidney disease stage III 6. Intracardiac thrombus: Once the blood pressure is controlled would start the patient on heparin drip. Subsequently will place the patient on warfarin, since I am not sure if the patient can afford Eliquis. Continue the patient on heparin. Will continue coumadin 7. At least moderate pulmonary hypertension: This is most likely secondary to left heart failure. Expect that this would improve with treatment of the patient's left heart failure. 8. Abnormal liver function tests secondary to right heart failure due to pulmonary hypertension. Would strongly avoid statins at this point. 9. Severe mitral regurgitation and tricuspid regurgitation. Expect this will improve with treatment of the patient's heart failure. 10. History of tobacco abuse: Tobacco cessation counseling done. Suspect the patient has an element of COPD also. Medications reviewed medications adjusted. Discussed with the manufacturing planner. Medical decision making is of high complexity. 60 minutes spent as patient more than 50% of time spent in direct patient care.
[2020-04-02] MEDS: NITROGLYCERIN 15 MG (0.6 MG/1 HR) PATCH.TD24 TD SCH (13:48)
[2020-04-02] MEDS: CLONIDINE HCL 0.1 MG TABLET PO SCH ×2 (13:50→22:51)
[2020-04-02] MEDS ORDERED: GLUCAGON,HUMAN RECOMB 1 MG INJ IM PRN (15:17)
[2020-04-02] MEDS ORDERED: DEXTROSE 40% GEL 15 GM TUBE PO PRN ×2 (15:17)
[2020-04-02] MEDS ORDERED: DEXTROSE 50%-WATER 25 GM/50 ML DISP.SYRIN IV PRN ×2 (15:17)
--- NOTE | 2020-04-02 15:21 | PDOC PROGRESS REPORT ---
Subjective Date:: 04/02/20 Subjective:: The patient is sleeping. His sister states that he did not sleep well last nigh t. She reports that he is feeling better. Reason For Visit: ACUTE DECOMPENSATED CONGESTIVE HEART FAILURE, Physical Exam Vital Signs: Temp Pulse Resp BP Pulse Ox 97.7 F 78 18 157/97 H 93 04/02/20 12:11 04/02/20 12:11 04/02/20 12:11 04/02/20 12:11 04/02/20 12:11 Intake & Output 04/01/20 04/02/20 04/03/20 06:59 06:59 06:59 Intake Total 1754 1626 950 Output Total 500 1275 200 Balance 1254 351 750 Weight 100.8 kg General appearance: PRESENT: no acute distress Respiratory exam: PRESENT: clear to auscultation raymundo - Anteriorly, symmetrical, unlabored. ABSENT: rales, rhonchi, tachypnea, wheezes Cardiovascular exam: PRESENT: RRR, +S1, +S2, systolic murmur GI/Abdominal exam: PRESENT: normal bowel sounds Rectal exam: PRESENT: deferred Gentrourinary exam: ABSENT: indwelling catheter Extremities exam: PRESENT: pedal edema Musculoskeletal exam: PRESENT: ambulatory, normal inspection. ABSENT: deformity, dislocation Skin exam: PRESENT: other - Petechia-like lesions on the legs and feet seems slightly improved. Platelet counts were unchanged. Results Laboratory Results: 04/02/20 03:50 04/02/20 03:57 04/01/20 04/01/20 04/02/20 16:45 19:45 03:50 WBC 12.2 H 10.4 RBC 3.81 L 3.86 L Hgb 11.5 L 11.7 L Hct 35.1 L 35.4 L MCV 92 92 MCH 30.2 30.3 MCHC 32.8 32.9 RDW 18.9 H 18.6 H Plt Count 143 L 155 Seg Neutrophils % 81.9 H Sodium 122.7 L Potassium 3.9 Chloride 81 L Carbon Dioxide 33 H Anion Gap 9 BUN 64 H Creatinine 2.85 H Est GFR ( Amer) 29 L Glucose 249 H Calcium 8.2 L Total Bilirubin 3.3 H AST 50 Alkaline Phosphatase 163 H Total Protein 6.1 L Albumin 2.7 L 04/02/20 03:57 WBC RBC Hgb Hct MCV MCH MCHC RDW Plt Count Seg Neutrophils % Sodium 123.7 L Potassium 4.0 Chloride 83 L Carbon Dioxide 31 H Anion Gap 10 BUN 61 H Creatinine 2.73 H Est GFR ( Amer) 30 L Glucose 256 H Calcium 8.4 Total Bilirubin 3.5 H AST 49 Alkaline Phosphatase 165 H Total Protein 6.3 Albumin 2.9 L 03/28/20 03/29/20 03/29/20 20:45 01:01 06:58 Troponin I 0.181 0.173 0.190 NT-Pro-B Natriuret Pep 05456 H 03/29/20 03/29/20 03/30/20 06:58 12:26 04:32 Troponin I 0.164 NT-Pro-B Natriuret Pep 33087 H 19128 H 03/31/20 04/01/20 06:37 05:42 Troponin I NT-Pro-B Natriuret Pep 32170 H 24868 H Impressions: Chest X-Ray 03/29/20 06:00 IMPRESSION: Mild cardiomegaly without a superimposed acute cardiopulmonary process. Renal Artery Duplex 03/31/20 00:00 IMPRESSION: NO DOPPLER EVIDENCE OF HEMODYNAMICALLY SIGNIFICANT RENAL ARTERY STENOSIS. Abdomen Ultrasound 04/01/20 00:00 IMPRESSION: 1. Shadowing echogenic calculi within the contracted gallbladder. 2. Normal contour and echotexture of the liver. 3. Trace right-sided pleural effusion. Assessment and Plan - Diagnosis (2) Acute kidney injury Is this a current diagnosis for this admission?: Yes (3) Elevated liver enzymes Is this a current diagnosis for this admission?: Yes (4) Heart failure with acute decompensation, type unknown Qualifiers: Heart failure type: unspecified Qualified Code(s): I50.9 - Heart failure, unspecified Is this a current diagnosis for this admission?: Yes (5) Hypertensive emergency Is this a current diagnosis for this admission?: Yes (6) Hyponatremia Is this a current diagnosis for this admission?: Yes (8) Non-STEMI (non-ST elevated myocardial infarction) Is this a current diagnosis for this admission?: Yes (9) Hemorrhoids Qualifiers: Hemorrhoid type: unspecified Qualified Code(s): K64.9 - Unspecified hemorrh oids Is this a current diagnosis for this admission?: Yes (10) Vasculitis Is this a current diagnosis for this admission?: Yes - Plan Summary Summary: 03/31/2020 Due to depressed ejection fraction from hypertensive cardiomyopathy the patient will need a LifeVest. As soon as the patient is therapeutic on warfarin heparin can be discontinued. He will need to follow-up echocardiogram as an outpatient. Change furosemide to oral dosing Recheck laboratory studies in the morning 04/01/2020 Awaiting INR to reach therapeutic dose so that warfarin may continue and we can discontinue the heparin infusion. The rash on the patient's leg had a petechial quality however platelet count was still normal. This certainly could be vasculitis and I have ordered a dose of Solu-Medrol. I will reassess tomorrow. Awaiting processing for LifeVest. Change furosemide to 80 mg p.o. twice a day. Continue to monitor electrolytes. BUN and creatinine starting to rise again. This could be due to diuresis. It may likely be hypertensive nephropathy. I will institute a 1.5 L fluid restriction and decrease the furosemide slightly. The furosemide is likely contributing to the hyponatremia. Hemorrhoid cream ordered for the patient. 04/02/2020 INR still subtherapeutic at 1.23. Still hyponatremic at 123.7. I will restrict his fluids to 1.2 L. Continue to monitor electrolytes. Still with decreased renal function with a BUN of 61 and a creatinine of 2.73 Hyperglycemia-glucose elevated. Will initiate sliding scale with breakfast and supper. Heart failure-still with good urine output. We will add Zaroxolyn 5 mg to his morning regimen. Hemorrhoid cream was ordered. Application for ZOLL LifeVest was completed. Vasculitis-platelet count was normal. This may be a vasculitic type lesion. I will start oral prednisone therapy and monitor closely. This will increase his sugars even further. We may need to add Lantus - Time Time Spent with patient: 15-24 minutes Medications reviewed and adjusted accordingly: Yes Anticipated Discharge Disposition: Home, Self Care Anticipated Discharge Timeframe: Unknown
[2020-04-02] MEDS: INSULIN REG, HUMAN 100 UNIT/ML 3 ML VIAL (PYX) SUBCUT SCH (17:44)
[2020-04-02] MEDS: PREDNISONE 20 MG TABLET PO SCH (17:45)
[2020-04-02] MEDS ORDERED: WARFARIN SODIUM 5 MG TABLET PO SCH ×2 (22:00)
[2020-04-03] MEDS: HEPARIN SODIUM,PORCINE/D5W 25,000 UNIT/250 ML RTUINJ IV PRN ×2 (04:37→20:52)
[2020-04-03] MEDS: AMLODIPINE BESYLATE 5 MG TABLET PO SCH ×2 (05:37→17:46)
[2020-04-03] MEDS: HYDRALAZINE HCL 50 MG TABLET PO SCH ×3 (05:37→21:33)
[2020-04-03 07:09] LABS: INTERNATIONAL RATION (INR) 1.36; PROTHROMBIN TIME 16.9 SEC (11.4-15.4)
[2020-04-03 07:22] LABS: ALBUMIN 2.7 g/dL (3.5-5.0); ALKALINE PHOSPHATASE 132 U/L (38-126); ANION GAP 8 (5-19); ASPARTATE AMINO TRANSFERASE 40 U/L (17-59); BILIRUBIN,DIRECT 1.3 mg/dL (0.0-0.4); BILIRUBIN,TOTAL 2.3 mg/dL (0.2-1.3); BLOOD UREA NITROGEN 61 mg/dL (7-20); CALCIUM 8.6 mg/dL (8.4-10.2); CARBON DIOXIDE 32 mmol/L (22-30); CHLORIDE 86 mmol/L (98-107); GLUCOSE 294 mg/dL (75-110)
[2020-04-03] MEDS: INSULIN REG, HUMAN 100 UNIT/ML 3 ML VIAL (PYX) SUBCUT SCH ×2 (10:49→16:40)
[2020-04-03] MEDS: POTASSIUM CHLORIDE 10 MEQ TABLET.ER PO SCH (10:54)
[2020-04-03] MEDS: CARVEDILOL 12.5 MG TABLET PO SCH ×2 (10:55→21:33)
[2020-04-03] MEDS: PREDNISONE 20 MG TABLET PO SCH ×2 (10:55→17:47)
[2020-04-03] MEDS: DOCUSATE SODIUM 100 MG CAPSULE PO SCH ×2 (10:55→17:46)
[2020-04-03] MEDS: FAMOTIDINE 20 MG TABLET PO SCH ×2 (10:55→21:33)
[2020-04-03] MEDS: LOSARTAN POTASSIUM 25 MG TABLET PO SCH (10:55)
[2020-04-03] MEDS: CLONIDINE HCL 0.1 MG TABLET PO SCH ×2 (10:56→21:33)
[2020-04-03] MEDS: ASPIRIN 81 MG TABLET, CHEWABLE PO SCH (10:56)
[2020-04-03] MEDS: METOLAZONE 5 MG TABLET PO SCH (10:58)
[2020-04-03] MEDS: FUROSEMIDE 40 MG TABLET PO SCH ×2 (11:35→17:46)
[2020-04-03] MEDS: NITROGLYCERIN 15 MG (0.6 MG/1 HR) PATCH.TD24 TD SCH (14:11)
--- NOTE | 2020-04-03 15:28 | PDOC PROGRESS REPORT ---
Subjective Date:: 04/03/20 Subjective:: The patient was awakened from a nap to take pills and check vital signs. His si ster is at the bedside. They note a new red area on the medial aspect of the left calf. Other areas of the likely vasculitis are improving. He received his first dose of Zaroxolyn this morning. Reason For Visit: ACUTE DECOMPENSATED CONGESTIVE HEART FAILURE, Physical Exam Vital Signs: Temp Pulse Resp BP Pulse Ox 97.3 F 70 18 159/99 H 99 04/03/20 11:16 04/03/20 14:00 04/03/20 11:16 04/03/20 11:16 04/03/20 11:16 Intake & Output 04/02/20 04/03/20 04/04/20 06:59 06:59 06:59 Intake Total 1626 1404 Output Total 1275 2600 Balance 351 -1196 Weight 100.8 kg 100.9 kg General appearance: PRESENT: no acute distress, cooperative, well-developed Head exam: PRESENT: atraumatic, normocephalic Ear exam: PRESENT: normal external ear exam. ABSENT: bleeding, drainage Mouth exam: PRESENT: moist, tongue midline Teeth exam: ABSENT: poor dentation Respiratory exam: PRESENT: rales - Bilateral bases, symmetrical, unlabored. ABSENT: prolonged expiratory phas, rhonchi, tachypnea, wheezes Cardiovascular exam: PRESENT: RRR, +S1, +S2, systolic murmur. ABSENT: bradycardia, diastolic murmur, tachycardia GI/Abdominal exam: PRESENT: normal bowel sounds, soft. ABSENT: tenderness Rectal exam: PRESENT: deferred Gentrourinary exam: ABSENT: indwelling catheter Extremities exam: PRESENT: +1 edema Musculoskeletal exam: PRESENT: ambulatory, normal inspection. ABSENT: deform ity, dislocation Neurological exam: PRESENT: alert, awake, oriented to person, oriented to place, oriented to time, oriented to situation, CN II-XII grossly intact. ABSENT: a ltered Psychiatric exam: PRESENT: appropriate affect. ABSENT: agitated, anxious Focused psych exam: ABSENT: delusional, paranoid, restlessness Skin exam: PRESENT: rash - Macular areas of red with [facility] are fading. There is new area on the medial aspect of the left calf. The largest area which is on the lateral aspect of the dorsal lateral aspect of the left foot and lateral area of the ankle is clearly fading. Results Laboratory Results: 04/02/20 03:50 04/03/20 05:18 04/03/20 05:18 Sodium 126.1 L Potassium 4.0 Chloride 86 L Carbon Dioxide 32 H Anion Gap 8 BUN 61 H Creatinine 2.43 H Est GFR ( Amer) 35 L Glucose 294 H Calcium 8.6 Total Bilirubin 2.3 H AST 40 Alkaline Phosphatase 132 H Total Protein 6.0 L Albumin 2.7 L 03/28/20 03/29/20 03/29/20 20:45 01:01 06:58 Troponin I 0.181 0.173 0.190 NT-Pro-B Natriuret Pep 45624 H 03/29/20 03/29/20 03/30/20 06:58 12:26 04:32 Troponin I 0.164 NT-Pro-B Natriuret Pep 92458 H 28826 H 03/31/20 04/01/20 06:37 05:42 Troponin I NT-Pro-B Natriuret Pep 78164 H 83379 H Impressions: Chest X-Ray 03/29/20 06:00 IMPRESSION: Mild cardiomegaly without a superimposed acute cardiopulmonary process. Renal Artery Duplex 03/31/20 00:00 IMPRESSION: NO DOPPLER EVIDENCE OF HEMODYNAMICALLY SIGNIFICANT RENAL ARTERY STENOSIS. Abdomen Ultrasound 04/01/20 00:00 IMPRESSION: 1. Shadowing echogenic calculi within the contracted gallbladder. 2. Normal contour and echotexture of the liver. 3. Trace right-sided pleural effusion. Assessment and Plan - Diagnosis (2) Acute kidney injury Is this a current diagnosis for this admission?: Yes (3) Elevated liver enzymes Is this a current diagnosis for this admission?: Yes (4) Heart failure with acute decompensation, type unknown Qualifiers: Heart failure type: unspecified Qualified Code(s): I50.9 - Heart failure, unspecified Is this a current diagnosis for this admission?: Yes (5) Hypertensive emergency Is this a current diagnosis for this admission?: Yes (6) Hyponatremia Is this a current diagnosis for this admission?: Yes (8) Non-STEMI (non-ST elevated myocardial infarction) Is this a current diagnosis for this admission?: Yes (9) Hemorrhoids Qualifiers: Hemorrhoid type: unspecified Qualified Code(s): K64.9 - Unspecified hemo rrhoids Is this a current diagnosis for this admission?: Yes (10) Vasculitis Is this a current diagnosis for this admission?: Yes - Plan Summary Summary: 03/31/2020 Due to depressed ejection fraction from hypertensive cardiomyopathy the patient will need a LifeVest. As soon as the patient is therapeutic on warfarin heparin can be discontinued. He will need to follow-up echocardiogram as an outpatient. Change furosemide to oral dosing Recheck laboratory studies in the morning 04/01/2020 Awaiting INR to reach therapeutic dose so that warfarin may continue and we can discontinue the heparin infusion. The rash on the patient's leg had a petechial quality however platelet count was still normal. This certainly could be vasculitis and I have ordered a dose of Solu-Medrol. I will reassess tomorrow. Awaiting processing for LifeVest. Change furosemide to 80 mg p.o. twice a day. Continue to monitor electrolytes. BUN and creatinine starting to rise again. This could be due to diuresis. It may likely be hypertensive nephropathy. I will institute a 1.5 L fluid restriction and decrease the furosemide slightly. The furosemide is likely contributing to the hyponatremia. Hemorrhoid cream ordered for the patient. 04/02/2020 INR still subtherapeutic at 1.23. Still hyponatremic at 123.7. I will restrict his fluids to 1.2 L. Continue to monitor electrolytes. Still with decreased renal function with a BUN of 61 and a creatinine of 2.73 Hyperglycemia-glucose elevated. Will initiate sliding scale with breakfast and supper. Heart failure-still with good urine output. We will add Zaroxolyn 5 mg to his morning regimen. Hemorrhoid cream was ordered. Application for ZOLL LifeVest was completed. Vasculitis-platelet count was normal. This may be a vasculitic type lesion. I will start oral prednisone therapy and monitor closely. This will increase his sugars even further. We may need to add Lantus 04/03/2020 INR is only 1.36 today. Continue heparin drip until INR is therapeutic. Vasculitis-the areas are starting to fade. New area on the medial aspect of the left calf. I will increase the prednisone to 30 mg twice daily. We discussed the effect it will have on swelling, glucose and blood pressure. Heart failure with depressed ejection fraction-ZOLL vest was ordered as his ejection fraction is only 20 to 25%. For the last 2 days he had a positive fluid balance. Yesterday it was net positive only 350 mL. I am shooting for at least 1.5 to 2 L negative fluid balance consistently. The addition of Zaroxolyn should help this. Glucose is 294 today. Sliding scale is in place. Will adjust based on Accu- Cheks. Doing better with hemorrhoid cream. BUN and creatinine are slightly improved today. Continue to monitor renal function. We had a rather jackelyn discussion regarding the need for aggressive control of his diabetes, blood pressure, heart failure management and pain attention to his renal function. He will already have significant debility from his cardiac status. Explained that this will only get worse if he is not dedicated to his health. He will eventually be in the hospital more than he is home towards the last stages of his disease. Edema-I suggested to his sister that when he leaves the hospital she should obtain compression stockings. She should at least obtain stockings in the 20 mm to 30 mm range. I explained how to measure the calf, ankle and the distance from the heel to the popliteal fossa to get the correct size. - Time Time Spent with patient: 15-24 minutes Medications reviewed and adjusted accordingly: Yes Anticipated Discharge Disposition: Home, Self Care Anticipated Discharge Timeframe: within 72 hours
--- NOTE | 2020-04-03 18:22 | Progress Note ---
Provider Note Provider Note: CARDIOLOGY PROGRESS NOTE by Dr. Minnie Sage on 04/03/2020. SUBJECTIVE: The patient states he is feeling much better. He denies any chest pain or discomfort. There is no shortness of breath. There is no PND or orthopnea. The patient states that he walked up to the bathroom without any shortness of breath. There is no arrhythmias seen on the monitor. His blood pressure is much better controlled. His kidney function is slightly improved but still he is a chronic kidney disease stage III level. There is no TIA CVA symptoms. There is no peripheral embolization. There is no bleeding on heparin and Coumadin. The patient's INR is still 1.36. Continue the Coumadin at 7.5 mg p.o. nightly. Strongly recommend the patient have a LifeVest in view of the patient's severely reduced LV ejection fraction. His renal artery Doppler shows no evidence of renal artery stenosis.His Bp is still not well controlled.Will add clonidine. PHYSICAL EXAMINATION: The patient is well-built and well-nourished at present in no acute distress Selected Entries 04/03/20 11:16 Temperature 97.3 F Temperature Oral Source Pulse Rate 55 L Respiratory 18 Rate Blood Pressure 159/99 H Blood Pressure 119 Mean BP Location Right Arm BP Position Sitting O2 Sat by Pulse 99 Oximetry Oxygen Delivery Room Air Method Head: Is atraumatic normocephalic. EYES: Nipples are equal round regular reactive light accommodation. Extraocular movements are normal. There is no definite conjunctival pallor present there is no scleral icterus. Ears: Tympanic membranes are intact. External auditory canals are clear. NOSE: There is no deviated nasal septum. There is no inflammation of the nasal mucous membrane. MOUTH: Mucous membranes of mouth are moist. Tongue is moist. There is no ulcers. There is no bleeding from the gums. THROAT: There is no redness of the oropharynx. There is no exudates. SKIN: There is no skin rashes. There is no petechia or ecchymosis. There is no skin lesions. NECK: Supple. There is mild JVD present. Carotids are equal there is no bruit there is no lymphadenopathy. There is no goiter. Lungs: Clear to auscultation and percussion. There is no rhonchi rales or wheezing.. HEART: S1-S2 is heard. There is an S4 gallop present there is no S3 gallop. There is systolic murmur left sternal border and the apex of mitral regurgitation and tricuspid regurgitation. There is no aortic stenosis or aortic regurgitation murmur. There is no rub. ABDOMEN: Is soft. There is no hepatosplenomegaly. Bowel sounds well heard. There is no tender areas of masses. EXTREMITIES: Femorals are well felt. There is no femoral bruits. Leg pulses are well felt. There is trace to mild pedal edema bilaterally. There is no DVT or cellulitis. There is no calf tenderness. TILE MECHANIC: The patient is conscious awake alert oriented x3 with no focal focal deficits. PSYCHIATRIC: The patient judgment insight are intact his affect is normal. Labs- All tests 24 hr 04/03/20 04/03/20 04/03/20 05:18 05:18 15:00 PT 16.9 H INR 1.36 APTT 67.3 H Sodium 126.1 L Potassium 4.0 Chloride 86 L Carbon Dioxide 32 H Anion Gap 8 BUN 61 H Creatinine 2.43 H Est GFR ( Amer) 35 L Est GFR (MDRD) Non-Af 29 L Glucose 294 H Calcium 8.6 Total Bilirubin 2.3 H Direct Bilirubin 1.3 H Neonat Total Bilirubin Not Reportable Neonat Direct Bilirubin Not Reportable Neonat Indirect Bili Not Reportable AST 40 ALT 90 H Alkaline Phosphatase 132 H Total Protein 6.0 L Albumin 2.7 L Chest X-Ray 03/28/20 19:06 IMPRESSION: There are no acute lung parenchymal findings. Mild enlargement of the cardiac silhouette. Chest X-Ray 03/29/20 06:00 IMPRESSION: Mild cardiomegaly without a superimposed acute cardiopulmonary process. Renal Artery Duplex 03/31/20 00:00 IMPRESSION: NO DOPPLER EVIDENCE OF HEMODYNAMICALLY SIGNIFICANT RENAL ARTERY STENOSIS. Abdomen Ultrasound 04/01/20 00:00 IMPRESSION: 1. Shadowing echogenic calculi within the contracted gallbladder. 2. Normal contour and echotexture of the liver. 3. Trace right-sided pleural effusion. IMPRESSION/RECOMMENDATION: 1. Hypertensive emergency with evidence of endorgan damage, there is cardiomyopathy with heart failure and renal failure and also abnormal liver enzymes indicating hepatic congestion. Would recommend starting the patient on a Cardene drip. Agree with Coreg but would increase the Coreg to 25 mg p.o. twice daily. Also increase the hydralazine to 70 mg p.o. every 8 hours. Will continue on amlodipine, and continue transdermal nitro patch daily. Will increase clonidine 0.1 mg po Q 8 H, and incrase as needed and tolerated. 2. Congestive heart failure: Most likely this is acute on chronic heart failure. This is secondary to biventricular systolic heart failure. Although the patient states his symptoms started 2 weeks ago this probably is longstanding due to untreated hypertension. 3. Dilated cardiomyopathy with severely reduced LV ejection fraction.Will order 'Lifevest'. 4. Elevated troponin levels. This is secondary to supply demand mismatch, due to type II myocardial infarctions, and not acute coronary syndrome. 5. Acute renal failure: Suspect this is acute on chronic renal failure. Avoid nephrotoxic drugs. At present renal function is improved to chronic kidney disease stage III 6. Intracardiac thrombus: Once the blood pressure is controlled would start the patient on heparin drip. Subsequently will place the patient on warfarin, since I am not sure if the patient can afford Eliquis. Continue the patient on heparin. Will continue coumadin 7. At least moderate pulmonary hypertension: This is most likely secondary to left heart failure. Expect that this would improve with treatment of the patient's left heart failure. 8. Abnormal liver function tests secondary to right heart failure due to pulmonary hypertension. Would strongly avoid statins at this point. 9. Severe mitral regurgitation and tricuspid regurgitation. Expect this will improve with treatment of the patient's heart failure. 10. History of tobacco abuse: Tobacco cessation counseling done. Suspect the patient has an element of COPD also. Medications reviewed medications adjusted. Discussed with the tread cutter. Medical decision making is of high complexity. 40 minutes spent as patient more than 50% of time spent in direct patient care.
[2020-04-03] MEDS ORDERED: WARFARIN SODIUM 7.5 MG TABLET PO SCH (22:00)
[2020-04-04] MEDS: HYDRALAZINE HCL 50 MG TABLET PO SCH ×3 (05:25→22:08)
[2020-04-04] MEDS: AMLODIPINE BESYLATE 5 MG TABLET PO SCH ×2 (05:25→17:44)
[2020-04-04 05:31] LABS: APPEARANCE,URINE CLEAR; BILIRUBIN,URINE NEGATIVE (NEGATIVE); COLOR,URINE YELLOW; GLUCOSE, URINE >=500 mg/dL (NEGATIVE); KETONES,URINE NEGATIVE (NEGATIVE); LEUKOCYTE ESTERASE,URINE NEGATIVE (NEGATIVE); NITRITE,URINE NEGATIVE (NEGATIVE); PROTEIN,URINE 100 mg/dL (NEGATIVE); URINE SPECIFIC GRAVITY 1.007
[2020-04-04 05:48] LABS: PARTIAL THROMBOPLASTIN TIME 79.6 SEC (23.5-35.8)
[2020-04-04 05:54] LABS: INTERNATIONAL RATION (INR) 2.39
[2020-04-04 06:00] LABS: PROTHROMBIN TIME 26.1 SEC (11.4-15.4)
[2020-04-04 06:19] LABS: ALBUMIN 2.8 g/dL (3.5-5.0); ANION GAP 7 (5-19); BLOOD UREA NITROGEN 60 mg/dL (7-20); CALCIUM 8.9 mg/dL (8.4-10.2); CARBON DIOXIDE 34 mmol/L (22-30); CHLORIDE 86 mmol/L (98-107); GLUCOSE 386 mg/dL (75-110); PHOSPHORUS 3.4 mg/dL (2.5-4.5); POTASSIUM 4.7 mmol/L (3.6-5.0)
[2020-04-04] MEDS: INSULIN REG, HUMAN 100 UNIT/ML 3 ML VIAL (PYX) SUBCUT SCH ×2 (08:16→16:20)
[2020-04-04] MEDS ORDERED: GLIMEPIRIDE 1 MG TABLET PO ONE (09:00)
[2020-04-04] MEDS: METOLAZONE 5 MG TABLET PO SCH (10:10)
[2020-04-04] MEDS: DOCUSATE SODIUM 100 MG CAPSULE PO SCH ×2 (10:30→17:44)
[2020-04-04] MEDS: PREDNISONE 20 MG TABLET PO SCH ×2 (10:31→17:17)
[2020-04-04] MEDS: CLONIDINE HCL 0.1 MG TABLET PO SCH ×3 (10:31→23:58)
[2020-04-04] MEDS: POTASSIUM CHLORIDE 10 MEQ TABLET.ER PO SCH (10:32)
[2020-04-04] MEDS: CARVEDILOL 12.5 MG TABLET PO SCH ×2 (10:33→22:09)
[2020-04-04] MEDS: LOSARTAN POTASSIUM 25 MG TABLET PO SCH (10:34)
[2020-04-04] MEDS: FAMOTIDINE 20 MG TABLET PO SCH ×2 (10:34→22:09)
[2020-04-04] MEDS: ASPIRIN 81 MG TABLET, CHEWABLE PO SCH (10:34)
[2020-04-04] MEDS: FUROSEMIDE 40 MG TABLET PO SCH ×2 (10:34→17:44)
[2020-04-04] MEDS: NITROGLYCERIN 15 MG (0.6 MG/1 HR) PATCH.TD24 TD SCH (14:26)
[2020-04-04] MEDS: GLIMEPIRIDE 1 MG TABLET PO SCH (16:21)
--- NOTE | 2020-04-04 17:25 | PDOC PROGRESS REPORT ---
Subjective Date:: 04/04/20 Subjective:: No acute distress. Resting comfortably in bed. Sister is at the bedside. Reason For Visit: ACUTE DECOMPENSATED CONGESTIVE HEART FAILURE, Physical Exam Vital Signs: Temp Pulse Resp BP Pulse Ox 97.8 F 56 L 18 156/83 H 94 04/04/20 15:49 04/04/20 15:49 04/04/20 15:49 04/04/20 15:49 04/04/20 15:49 Intake & Output 04/03/20 04/04/20 04/05/20 06:59 06:59 06:59 Intake Total 1404 1404 965 Output Total 2600 8270 1800 Balance -1196 -6866 -835 Weight 100.9 kg 96.5 kg General appearance: PRESENT: no acute distress, cooperative, well-developed Head exam: PRESENT: atraumatic, normocephalic Respiratory exam: PRESENT: clear to auscultation raymundo, symmetrical, unlabored. ABSENT: rales, rhonchi, tachypnea, wheezes Cardiovascular exam: PRESENT: RRR, +S1, +S2, systolic murmur. ABSENT: bradycardia, diastolic murmur, irregular rhythm, tachycardia GI/Abdominal exam: PRESENT: normal bowel sounds, soft. ABSENT: distended, tenderness Rectal exam: PRESENT: deferred Gentrourinary exam: ABSENT: indwelling catheter Extremities exam: PRESENT: pedal edema - Edema greatly improved. Still trace edema bilaterally. Compression stockings in place today. Musculoskeletal exam: PRESENT: ambulatory, normal inspection. ABSENT: deformity, dislocation Neurological exam: PRESENT: alert, awake, oriented to person, oriented to place, oriented to time, oriented to situation, CN II-XII grossly intact. ABSENT: altered Psychiatric exam: PRESENT: appropriate affect. ABSENT: agitated, anxious Focused psych exam: ABSENT: delusional, paranoid, restlessness Skin exam: PRESENT: dry, normal color, warm, other - Multiple tattoos. ABSENT: rash Results Laboratory Results: 04/02/20 03:50 04/04/20 05:11 04/04/20 04/04/20 04:05 05:11 Sodium 126.8 L Potassium 4.7 Chloride 86 L Carbon Dioxide 34 H Anion Gap 7 BUN 60 H Creatinine 2.46 H Est GFR ( Amer) 34 L Glucose 386 H Calcium 8.9 Phosphorus 3.4 Magnesium 2.0 Albumin 2.8 L Urine Color YELLOW Urine Appearance CLEAR Urine pH 7.0 Ur Specific [place] 1.007 Urine Protein 100 H Urine Glucose (UA) >=500 H Urine Ketones NEGATIVE Urine Blood NEGATIVE Urine Nitrite NEGATIVE Ur Leukocyte Esterase NEGATIVE Urine WBC (Auto) 1 Urine RBC (Auto) 1 03/28/20 03/29/20 03/29/20 20:45 01:01 06:58 Troponin I 0.181 0.173 0.190 NT-Pro-B Natriuret Pep 87540 H 03/29/20 03/29/20 03/30/20 06:58 12:26 04:32 Troponin I 0.164 NT-Pro-B Natriuret Pep 75418 H 99109 H 03/31/20 04/01/20 06:37 05:42 Troponin I NT-Pro-B Natriuret Pep 78173 H 15375 H Impressions: Chest X-Ray 03/29/20 06:00 IMPRESSION: Mild cardiomegaly without a superimposed acute cardiopulmonary process. Renal Artery Duplex 03/31/20 00:00 IMPRESSION: NO DOPPLER EVIDENCE OF HEMODYNAMICALLY SIGNIFICANT RENAL ARTERY STENOSIS. Abdomen Ultrasound 04/01/20 00:00 IMPRESSION: 1. Shadowing echogenic calculi within the contracted gallbladder. 2. Normal contour and echotexture of the liver. 3. Trace right-sided pleural effusion. Assessment and Plan - Diagnosis (2) Acute kidney injury Is this a current diagnosis for this admission?: Yes (3) Elevated liver enzymes Is this a current diagnosis for this admission?: Yes (4) Heart failure with acute decompensation, type unknown Qualifiers: Heart failure type: unspecified Qualified Code(s): I50.9 - Heart failure, unspecified Is this a current diagnosis for this admission?: Yes (5) Hypertensive emergency Is this a current diagnosis for this admission?: Yes (6) Hyponatremia Is this a current diagnosis for this admission?: Yes (8) Non-STEMI (non-ST elevated myocardial infarction) Is this a current diagnosis for this admission?: Yes (9) Hemorrhoids Qualifiers: Hemorrhoid type: unspecified Qualified Code(s): K64.9 - Unspecified hemorrhoids Is this a current diagnosis for this admission?: Yes (10) Vasculitis Is this a current diagnosis for this admission?: Yes - Plan Summary Summary: 03/31/2020 Due to depressed ejection fraction from hypertensive cardiomyopathy the patient will need a LifeVest. As soon as the patient is therapeutic on warfarin heparin can be discontinued. He will need to follow-up echocardiogram as an outpatient. Change furosemide to oral dosing Recheck laboratory studies in the morning 04/01/2020 Awaiting INR to reach therapeutic dose so that warfarin may continue and we can discontinue the heparin infusion. The rash on the patient's leg had a petechial quality however platelet count was still normal. This certainly could be vasculitis and I have ordered a dose of Solu-Medrol. I will reassess tomorrow. Awaiting processing for LifeVest. Change furosemide to 80 mg p.o. twice a day. Continue to monitor electrolytes. BUN and creatinine starting to rise again. This could be due to diuresis. It may likely be hypertensive nephropathy. I will institute a 1.5 L fluid restriction and decrease the furosemide slightly. The furosemide is likely contributing to the hyponatremia. Hemorrhoid cream ordered for the patient. 04/02/2020 INR still subtherapeutic at 1.23. Still hyponatremic at 123.7. I will restrict his fluids to 1.2 L. Continue to monitor electrolytes. Still with decreased renal function with a BUN of 61 and a creatinine of 2.73 Hyperglycemia-glucose elevated. Will initiate sliding scale with breakfast and supper. Heart failure-still with good urine output. We will add Zaroxolyn 5 mg to his morning regimen. Hemorrhoid cream was ordered. Application for ZOLL LifeVest was completed. Vasculitis-platelet count was normal. This may be a vasculitic type lesion. I will start oral prednisone therapy and monitor closely. This will increase his sugars even further. We may need to add Lantus 04/03/2020 INR is only 1.36 today. Continue heparin drip until INR is therapeutic. Vasculitis-the areas are starting to fade. New area on the medial aspect of the left calf. I will increase the prednisone to 30 mg twice daily. We discussed the effect it will have on swelling, glucose and blood pressure. Heart failure with depressed ejection fraction-ZOLL vest was ordered as his eje ction fraction is only 20 to 25%. For the last 2 days he had a positive fluid balance. Yesterday it was net positive only 350 mL. I am shooting for at least 1.5 to 2 L negative fluid balance consistently. The addition of Zaroxolyn should help this. Glucose is 294 today. Sliding scale is in place. Will adjust based on Accu- Cheks. Doing better with hemorrhoid cream. BUN and creatinine are slightly improved today. Continue to monitor renal function. We had a rather jackelyn discussion regarding the need for aggressive control of his diabetes, blood pressure, heart failure management and pain attention to his renal function. He will already have significant debility from his cardiac status. Explained that this will only get worse if he is not dedicated to his health. He will eventually be in the hospital more than he is home towards the last stages of his disease. Edema-I suggested to his sister that when he leaves the hospital she should obtain compression stockings. She should at least obtain stockings in the 20 mm to 30 mm range. I explained how to measure the calf, ankle and the distance from the heel to the popliteal fossa to get the correct size. 04/04/2020 INR is 2.39 so the heparin drip was discontinued. Patient continues in a negative fluid balance. His lungs are clear and he has significantly decreased edema Awaiting ZOLL LifeVest tomorrow Glucose is still quite high. Hemoglobin A1c was only 4.9. We will recheck labs tomorrow. Vasculitis-the prednisone therapy is contributing to the elevated glucose. I have decreased the prednisone to 30 mg daily and will discharge on a taper. Continue to monitor renal function. Hyponatremia-sodium is slightly improved. Continue fluid restriction. I had another discussion with the patient and his sister. We again reviewed plans for discharge and post discharge follow-up. - Time Time Spent with patient: 15-24 minutes Anticipated Discharge Disposition: Home, Self Care Anticipated Discharge Timeframe: within 24 hours
[2020-04-04 17:27] LABS: PROTHROMBIN TIME 32.6 SEC (11.4-15.4)
--- NOTE | 2020-04-04 18:00 | Progress Note ---
Provider Note Provider Note: Cardiology progress note by Dr. Minnie Sage on 04/04/2020. SUBJECTIVE: The patient denies any chest pain discomfort. There is no shortness of breath. There is no PND orthopnea. There is no arrhythmias seen on the monitor. The patient is awaiting for his LifeVest. The patient's INR is therapeutic and hence the heparin drip has been stopped. We will recheck the patient's PT/INR in 6 hours after the stoppage of heparin. There is no TIA CVA symptoms. There is no peripheral embolization. His leg edema has resolved. PHYSICAL EXAMINATION: The patient is well-built and well-nourished in no acute distress Selected Entries 04/04/20 04/04/20 07:45 08:35 Temperature 97.9 F Temperature Oral Source Pulse Rate 60 Respiratory 20 Rate Blood Pressure 164/96 H Blood Pressure 118 Mean BP Location Right Arm BP Position Sitting O2 Sat by Pulse 96 Oximetry Oxygen Delivery Room Air Method ( includes room air) Head: Is atraumatic normocephalic. EYES: Nipples are equal round regular reactive light accommodation. Extraocular movements are normal. There is no definite conjunctival pallor present there is no scleral icterus. Ears: Tympanic membranes are intact. External auditory canals are clear. NOSE: There is no deviated nasal septum. There is no inflammation of the nasal mucous membrane. MOUTH: Mucous membranes of mouth are moist. Tongue is moist. There is no ulcers. There is no bleeding from the gums. THROAT: There is no redness of the oropharynx. There is no exudates. SKIN: There is no skin rashes. There is no petechia or ecchymosis. There is no skin lesions. NECK: Supple. There is mild JVD present. Carotids are equal there is no bruit there is no lymphadenopathy. There is no goiter. Lungs: Clear to auscultation and percussion. There is no rhonchi rales or wheezing.. HEART: S1-S2 is heard. There is an S4 gallop present there is no S3 gallop. There is systolic murmur left sternal border and the apex of mitral regurgitation and tricuspid regurgitation. There is no aortic stenosis or aortic regurgitation murmur. There is no rub. ABDOMEN: Is soft. There is no hepatosplenomegaly. Bowel sounds well heard. There is no tender areas of masses. EXTREMITIES: Femorals are well felt. There is no femoral bruits. Leg pulses are well felt. There is trace to mild pedal edema bilaterally. There is no DVT or cellulitis. There is no calf tenderness. EMT/DISPATCHER: The patient is conscious awake alert oriented x3 with no focal focal deficits. PSYCHIATRIC: The patient judgment insight are intact his affect is normal. Labs- All tests 24 hr 04/04/20 04/04/20 04/04/20 04:05 05:11 05:11 PT 26.1 H D INR 2.39 APTT 79.6 H Sodium 126.8 L Potassium 4.7 Chloride 86 L Carbon Dioxide 34 H Anion Gap 7 BUN 60 H Creatinine 2.46 H Est GFR ( Amer) 34 L Est GFR (MDRD) Non-Af 28 L Glucose 386 H Calcium 8.9 Phosphorus 3.4 Magnesium 2.0 Albumin 2.8 L Urine Color YELLOW Urine Appearance CLEAR Urine pH 7.0 Ur Specific [place] 1.007 Urine Protein 100 H Urine Glucose (UA) >=500 H Urine Ketones NEGATIVE Urine Blood NEGATIVE Urine Nitrite NEGATIVE Urine Bilirubin NEGATIVE Urine Urobilinogen 4.0 H Ur Leukocyte Esterase NEGATIVE Urine WBC (Auto) 1 Urine RBC (Auto) 1 Urine Bacteria (Auto) TRACE Urine Ascorbic Acid NEGATIVE 04/04/20 17:10 PT 32.6 H INR 3.20 APTT Sodium Potassium Chloride Carbon Dioxide Anion Gap BUN Creatinine Est GFR ( Amer) Est GFR (MDRD) Non-Af Glucose Calcium Phosphorus Magnesium Albumin Urine Color Urine Appearance Urine pH Ur Specific [place] Urine Protein Urine Glucose (UA) Urine Ketones Urine Blood Urine Nitrite Urine Bilirubin Urine Urobilinogen Ur Leukocyte Esterase Urine WBC (Auto) Urine RBC (Auto) Urine Bacteria (Auto) Urine Ascorbic Acid Chest X-Ray 03/28/20 19:06 IMPRESSION: There are no acute lung parenchymal findings. Mild enlargement of the cardiac silhouette. Chest X-Ray 03/29/20 06:00 IMPRESSION: Mild cardiomegaly without a superimposed acute cardiopulmonary process. Renal Artery Duplex 03/31/20 00:00 IMPRESSION: NO DOPPLER EVIDENCE OF HEMODYNAMICALLY SIGNIFICANT RENAL ARTERY STENOSIS. Abdomen Ultrasound 04/01/20 00:00 IMPRESSION: 1. Shadowing echogenic calculi within the contracted gallbladder. 2. Normal contour and echotexture of the liver. 3. Trace right-sided pleural effusion. IMPRESSION/RECOMMENDATION: 1. Hypertensive emergency with evidence of endorgan damage, there is cardiomyopathy with heart failure and renal failure and also abnormal liver enzymes indicating hepatic congestion. Would recommend starting the patient on a Cardene drip. Agree with Coreg but would increase the Coreg to 25 mg p.o. twice daily. Also increase the hydralazine to 70 mg p.o. every 8 hours. Will continue on amlodipine, and continue transdermal nitro patch daily. Will increase clonidine 0.2 mg po Q 8 H.. 2. Congestive heart failure: Most likely this is acute on chronic heart failure. This is secondary to biventricular systolic heart failure. Although the patient states his symptoms started 2 weeks ago this probably is longstanding due to untreated hypertension. 3. Dilated cardiomyopathy with severely reduced LV ejection fraction.Will order 'Lifevest'. 4. Elevated troponin levels. This is secondary to supply demand mismatch, due to type II myocardial infarctions, and not acute coronary syndrome. 5. Acute renal failure: Suspect this is acute on chronic renal failure. Avoid nephrotoxic drugs. At present renal function is improved to chronic kidney disease stage III 6. Intracardiac thrombus: The patient's pro time is therapeutic. We will stop the patient's heparin and recheck the patient's pro time to see what the level is with the heparins affect being off. We will continue Coumadin as per pro time. 7. At least moderate pulmonary hypertension: This is most likely secondary to left heart failure. Expect that this would improve with treatment of the patient's left heart failure. 8. Abnormal liver function tests secondary to right heart failure due to pulm onary hypertension. Would strongly avoid statins at this point. 9. Severe mitral regurgitation and tricuspid regurgitation. Expect this will improve with treatment of the patient's heart failure. 10. History of tobacco abuse: Tobacco cessation counseling done. Suspect the patient has an element of COPD also. Medications reviewed medications adjusted. Discussed with the door installer. Medical decision making is of high complexity. 40 minutes spent as patient more than 50% of time spent in direct patient care.
[2020-04-04] MEDS ORDERED: WARFARIN SODIUM 5 MG TABLET PO SCH ×2 (22:00)
[2020-04-04] MEDS ORDERED: WARFARIN SODIUM 3 MG TABLET PO SCH (22:00)
[2020-04-05] MEDS: CLONIDINE HCL 0.1 MG TABLET PO SCH ×3 (06:08→21:00)
[2020-04-05] MEDS: AMLODIPINE BESYLATE 5 MG TABLET PO SCH ×2 (06:08→17:09)
[2020-04-05] MEDS: HYDRALAZINE HCL 50 MG TABLET PO SCH ×3 (06:09→21:00)
[2020-04-05 06:52] LABS: HEMATOCRIT 39.2 % (37.9-51.0); HEMOGLOBIN 12.8 g/dL (13.5-17.0); MEAN CORPUSCULAR HEMOGLOBIN 30.2 pg (27.0-33.4); MEAN CORPUSCULAR HGB CONC 32.6 g/dL (32.0-36.0); MEAN CORPUSCULAR VOLUME 93 fl (80-97); PLATELET COUNT 239 10^3/uL (150-450); RED BLOOD COUNT 4.24 10^6/uL (4.35-5.55); RED CELL DISTRIBUTION WIDTH 18.9 % (11.5-14.0); WHITE BLOOD COUNT 17.1 10^3/uL (4.0-10.5)
[2020-04-05 07:11] LABS: INTERNATIONAL RATION (INR) 3.64; PROTHROMBIN TIME 35.9 SEC (11.4-15.4)
[2020-04-05 07:15] LABS: ALBUMIN 2.9 g/dL (3.5-5.0); ALKALINE PHOSPHATASE 119 U/L (38-126); ANION GAP 7 (5-19); ASPARTATE AMINO TRANSFERASE 39 U/L (17-59); BILIRUBIN,DIRECT 0.8 mg/dL (0.0-0.4); BILIRUBIN,TOTAL 1.5 mg/dL (0.2-1.3); BLOOD UREA NITROGEN 56 mg/dL (7-20); CALCIUM 9.2 mg/dL (8.4-10.2); CARBON DIOXIDE 36 mmol/L (22-30); CHLORIDE 87 mmol/L (98-107); GLUCOSE 241 mg/dL (75-110); POTASSIUM 4.3 mmol/L (3.6-5.0); TOTAL PROTEIN 6.2 g/dL (6.3-8.2)
[2020-04-05] MEDS ORDERED: PREDNISONE 20 MG TABLET PO SCH (10:00)
[2020-04-05] MEDS: POTASSIUM CHLORIDE 10 MEQ TABLET.ER PO SCH (10:02)
[2020-04-05] MEDS: FAMOTIDINE 20 MG TABLET PO SCH ×2 (10:03→21:00)
[2020-04-05] MEDS: CARVEDILOL 12.5 MG TABLET PO SCH ×2 (10:03→21:00)
[2020-04-05] MEDS: ASPIRIN 81 MG TABLET, CHEWABLE PO SCH (10:05)
[2020-04-05] MEDS: GLIMEPIRIDE 1 MG TABLET PO SCH ×2 (10:06→17:09)
[2020-04-05] MEDS: FUROSEMIDE 40 MG TABLET PO SCH ×2 (10:06→17:09)
[2020-04-05] MEDS: METOLAZONE 5 MG TABLET PO SCH (10:07)
[2020-04-05] MEDS: DOCUSATE SODIUM 100 MG CAPSULE PO SCH ×2 (10:07→17:09)
[2020-04-05] MEDS: LOSARTAN POTASSIUM 25 MG TABLET PO SCH (10:13)
[2020-04-05] MEDS: INSULIN REG, HUMAN 100 UNIT/ML 3 ML VIAL (PYX) SUBCUT SCH ×2 (10:13→17:07)
--- NOTE | 2020-04-05 12:18 | PDOC DISCHARGE SUMMARY ---
Impression - Admit/DC Date/PCP Admission Date/Primary Care Provider: 03/28/20 23:29 Discharge Date: 04/05/20 - Discharge Diagnosis (2) Acute kidney injury Is this a current diagnosis for this admission?: Yes (3) Elevated liver enzymes Is this a current diagnosis for this admission?: Yes (4) Heart failure with acute decompensation, type unknown Is this a current diagnosis for this admission?: Yes (5) Hypertensive emergency Is this a current diagnosis for this admission?: Yes (6) Hyponatremia Is this a current diagnosis for this admission?: Yes (8) Non-STEMI (non-ST elevated myocardial infarction) Is this a current diagnosis for this admission?: Yes (9) Hemorrhoids Is this a current diagnosis for this admission?: Yes (10) Vasculitis Is this a current diagnosis for this admission?: Yes - Assessment Summary: 03/31/2020 Due to depressed ejection fraction from hypertensive cardiomyopathy the patient will need a LifeVest. As soon as the patient is therapeutic on warfarin heparin can be discontinued. He will need to follow-up echocardiogram as an outpatient. Change furosemide to oral dosing Recheck laboratory studies in the morning 04/01/2020 Awaiting INR to reach therapeutic dose so that warfarin may continue and we can discontinue the heparin infusion. The rash on the patient's leg had a petechial quality however platelet count was still normal. This certainly could be vasculitis and I have ordered a dose of Solu-Medrol. I will reassess tomorrow. Awaiting processing for LifeVest. Change furosemide to 80 mg p.o. twice a day. Continue to monitor electrolytes. BUN and creatinine starting to rise again. This could be due to diuresis. It may likely be hypertensive nephropathy. I will institute a 1.5 L fluid restriction and decrease the furosemide slightly. The furosemide is likely contributing to the hyponatremia. Hemorrhoid cream ordered for the patient. 04/02/2020 INR still subtherapeutic at 1.23. Still hyponatremic at 123.7. I will restrict his fluids to 1.2 L. Continue to monitor electrolytes. Still with decreased renal function with a BUN of 61 and a creatinine of 2.73 Hyperglycemia-glucose elevated. Will initiate sliding scale with breakfast and supper. Heart failure-still with good urine output. We will add Zaroxolyn 5 mg to his morning regimen. Hemorrhoid cream was ordered. Application for ZOLL LifeVest was completed. Vasculitis-platelet count was normal. This may be a vasculitic type lesion. I will start oral prednisone therapy and monitor closely. This will increase his sugars even further. We may need to add Lantus 04/03/2020 INR is only 1.36 today. Continue heparin drip until INR is therapeutic. Vasculitis-the areas are starting to fade. New area on the medial aspect of the left calf. I will increase the prednisone to 30 mg twice daily. We discussed the effect it will have on swelling, glucose and blood pressure. Heart failure with depressed ejection fraction-ZOLL vest was ordered as his ejection fraction is only 20 to 25%. For the last 2 days he had a positive fluid balance. Yesterday it was net positive only 350 mL. I am shooting for at least 1.5 to 2 L negative fluid balance consistently. The addition of Zaroxolyn should help this. Glucose is 294 today. Sliding scale is in place. Will adjust based on Accu- Cheks. Doing better with hemorrhoid cream. BUN and creatinine are slightly improved today. Continue to monitor renal function. We had a rather jackelyn discussion regarding the need for aggressive control of his diabetes, blood pressure, heart failure management and pain attention to his renal function. He will already have significant debility from his cardiac status. Explained that this will only get worse if he is not dedicated to his health. He will eventually be in the hospital more than he is home towards the last stages of his disease. Edema-I suggested to his sister that when he leaves the hospital she should obtain compression stockings. She should at least obtain stockings in the 20 mm to 30 mm range. I explained how to measure the calf, ankle and the distance from the heel to the popliteal fossa to get the correct size. 04/04/2020 INR is 2.39 so the heparin drip was discontinued. Patient continues in a negative fluid balance. His lungs are clear and he has significantly decreased edema Awaiting ZOLL LifeVest tomorrow Glucose is still quite high. Hemoglobin A1c was only 4.9. We will recheck labs tomorrow. Vasculitis-the prednisone therapy is contributing to the elevated glucose. I have decreased the prednisone to 30 mg daily and will discharge on a taper. Continue to monitor renal function. Hyponatremia-sodium is slightly improved. Continue fluid restriction. I had another discussion with the patient and his sister. We again reviewed plans for discharge and post discharge follow-up. - Additional Information Resuscitation Status: Full Code Discharge Diet: Cardiac Discharge Activity: Activity As Tolerated, Balance Activity w/Rest, Weigh Daily Referrals: [facility] [Provider Group] - 04/12/20 10:00 am JULIÁN HUDSON MD [ACTIVE STAFF] - 04/26/20 11:45 am (*Bring medications or updated list of medications to appointment* *Bring ID card and insurance cards to appointment*) Prescriptions: Glimepiride [Amaryl 4 mg Tablet] 4 mg PO DAILY #30 tablet Clonidine HCl [Catapres 0.2 mg Tablet] 0.2 mg PO Q8 #90 tab Carvedilol [Coreg 12.5 mg Tablet] 25 mg PO Q12 #60 tablet Losartan Potassium [Cozaar 25 mg Tablet] 25 mg PO DAILY #30 tablet Hydralazine HCl 100 mg PO Q8 #90 tablet Furosemide [Lasix 80 mg Tablet] 80 mg PO BID #60 tab Nitroglycerin [Nitro-Dur 15 mg (0.6 mg/1 Hr) Transderm Patch] 1 each TD DAILY@1400 #30 patch.td24 Amlodipine Besylate [Norvasc 5 mg Tablet] 5 mg PO BID #60 tablet Potassium Chloride 40 meq PO DAILY #60 tablet.er Prednisone 10 mg PO ASDIR #22 tablet Warfarin Sodium 2.5 mg PO QPM #30 tablet Metolazone [Zaroxolyn 5 mg Tablet] 5 mg PO DAILY #30 tablet Home Medications: Amlodipine Besylate [Norvasc 5 mg Tablet] 5 mg PO BID #60 tablet 04/05/20 Aspirin [Aspirin 81 mg Chewable Tablet] 81 mg PO DAILY tab.chew 04/05/20 Carvedilol [Coreg 12.5 mg Tablet] 25 mg PO Q12 #60 tablet 04/05/20 Clonidine HCl [Catapres 0.2 mg Tablet] 0.2 mg PO Q8 #90 tab 04/05/20 Dibucaine 1% Ointment [Nupercainal 1% Oint 28 gm] 1 applic TP PRN PRN tube 04/05/20 Docusate Sodium [Colace 100 mg Capsule] 100 mg PO BID capsule 04/05/20 Famotidine [Pepcid 20 mg Tablet] 20 mg PO Q12 tablet 04/05/20 Furosemide [Lasix 80 mg Tablet] 80 mg PO BID #60 tab 04/05/20 Glimepiride [Amaryl 4 mg Tablet] 4 mg PO DAILY #30 tablet 04/05/20 Hydralazine HCl 100 mg PO Q8 #90 tablet 04/05/20 Losartan Potassium [Cozaar 25 mg Tablet] 25 mg PO DAILY #30 tablet 04/05/20 Metolazone [Zaroxolyn 5 mg Tablet] 5 mg PO DAILY #30 tablet 04/05/20 Nitroglycerin [Nitro-Dur 15 mg (0.6 mg/1 Hr) Transderm Patch] 1 each TD DAILY@1400 #30 patch.td24 04/05/20 Potassium Chloride 40 meq PO DAILY #60 tablet.er 04/05/20 Prednisone 10 mg PO ASDIR #22 tablet 04/05/20 Warfarin Sodium 2.5 mg PO QPM #30 tablet 04/05/20 History of Present Illiness History of Present Illness: COSME BLANC is a 49 year old male with no known past medical history presents to the ED with a 2-week duration of progressively worsening shortness of breath. He states that initially the shortness of breath was exertional and it progressively got worse to a level where he started feeling short of breath even at rest. In the past 2 weeks he states that he has not been able to lie flat and he has to prop himself up in order to sleep. He also states that he wakes up from sleep feeling hungry for air and has to sit up to feel better. As sociated with this he also has bilateral lower extremity swelling of same duration. Patient states that he visited urgent care center few times in the past 2 weeks and was told that he has bronchitis and was given inhalers and steroid treatment which did not improve his symptoms. He endorses occasional dry cough but denies any fever or chills. He denies chest pain, lightheadedness, palpitation, diaphoresis, focal weakness of extremities, or vomiting. 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 He has not been to a doctor in a very long time and currently is not on any chronic medication and he does not take [id number] medications. Hospital Course Hospital Course: Details as above Physical Exam Vital Signs: Temp Pulse Resp BP Pulse Ox 98.2 F 61 16 153/105 H 97 04/05/20 10:00 04/05/20 07:49 04/05/20 07:49 04/05/20 07:49 04/05/20 07:49 Intake & Output 04/04/20 04/05/20 04/06/20 06:59 06:59 06:59 Intake Total 1404 1665 Output Total 8201 3445 Balance -6443 -5114 Weight 96.5 kg 92.1 kg General appearance: PRESENT: no acute distress Respiratory exam: PRESENT: clear to auscultation raymundo, symmetrical, unlabored. ABSENT: rales, rhonchi, tachypnea, wheezes Cardiovascular exam: PRESENT: RRR, +S1, +S2, systolic murmur GI/Abdominal exam: PRESENT: normal bowel sounds, soft. ABSENT: tenderness Rectal exam: PRESENT: deferred Gentrourinary exam: ABSENT: indwelling catheter Extremities exam: PRESENT: other - Compression stockings in place Musculoskeletal exam: PRESENT: ambulatory Neurological exam: PRESENT: alert, awake, oriented to person, oriented to place, oriented to time, oriented to situation, CN II-XII grossly intact. ABSENT: altered Psychiatric exam: PRESENT: appropriate affect. ABSENT: agitated, anxious Focused psych exam: ABSENT: delusional, paranoid, restlessness Results Laboratory Results: WBC 17.1 10^3/uL (4.0-10.5) H 04/05/20 06:27 RBC 4.24 10^6/uL (4.35-5.55) L 04/05/20 06:27 Hgb 12.8 g/dL (13.5-17.0) L 04/05/20 06:27 Hct 39.2 % (37.9-51.0) 04/05/20 06:27 MCV 93 fl (80-97) 04/05/20 06:27 MCH 30.2 pg (27.0-33.4) 04/05/20 06:27 MCHC 32.6 g/dL (32.0-36.0) 04/05/20 06:27 RDW 18.9 % (11.5-14.0) H 04/05/20 06:27 Plt Count 239 10^3/uL (150-450) 04/05/20 06:27 Lymph % (Auto) 9.9 % (13-45) L 04/01/20 19:45 [place] % (Auto) 7.5 % (3-13) 04/01/20 19:45 Eos % (Auto) 0.5 % (0-6) 04/01/20 19:45 Baso % (Auto) 0.2 % (0-2) 04/01/20 19:45 Absolute Neuts (auto) 10.0 10^3/uL (1.7-8.2) H 04/01/20 19:45 Absolute Lymphs (auto) 1.2 10^3/uL (0.5-4.7) 04/01/20 19:45 Absolute Monos (auto) 0.9 10^3/uL (0.1-1.4) 04/01/20 19:45 Absolute Eos (auto) 0.1 10^3/uL (0.0-0.6) 04/01/20 19:45 Absolute Basos (auto) 0.0 10^3/uL (0.0-0.2) 04/01/20 19:45 Seg Neutrophils % 81.9 % (42-78) H 04/01/20 19:45 ESR 23 mm/hr (0-15) H 04/02/20 03:57 PT 35.9 SEC (11.4-15.4) H 04/05/20 06:27 INR 3.64 04/05/20 06:27 APTT 79.6 SEC (23.5-35.8) H 04/04/20 05:11 Sodium 129.7 mmol/L (137-145) L 04/05/20 06:27 Potassium 4.3 mmol/L (3.6-5.0) 04/05/20 06:27 Chloride 87 mmol/L (98-107) L 04/05/20 06:27 Carbon Dioxide 36 mmol/L (22-30) H 04/05/20 06:27 Anion Gap 7 (5-19) 04/05/20 06:27 BUN 56 mg/dL (7-20) H 04/05/20 06:27 Creatinine 2.39 mg/dL (0.52-1.25) H 04/05/20 06:27 Est GFR ( Amer) 35 (>60) L 04/05/20 06:27 Est GFR (MDRD) Non-Af 29 (>60) L 04/05/20 06:27 Glucose 241 mg/dL (75-110) H 04/05/20 06:27 POC Glucose 215 mg/dL (70-110) H 04/05/20 07:45 Hemoglobin A1c % 5.1 % (4.7-6.0) 04/05/20 06:27 Serum Osmolality 295 mOsm/kg (275-301) 03/28/20 20:45 Calcium 9.2 mg/dL (8.4-10.2) 04/05/20 06:27 Phosphorus 3.4 mg/dL (2.5-4.5) 04/04/20 05:11 Magnesium 1.9 mg/dL (1.6-2.3) 04/05/20 06:27 Total Bilirubin 1.5 mg/dL (0.2-1.3) H 04/05/20 06:27 Direct Bilirubin 0.8 mg/dL (0.0-0.4) H 04/05/20 06:27 Neonat Total Bilirubin Not Reportable 04/05/20 06:27 Neonat Direct Bilirubin Not Reportable 04/05/20 06:27 Neonat Indirect Bili Not Reportable 04/05/20 06:27 GGT 206 U/L (8-78) H 03/30/20 04:32 AST 39 U/L (17-59) 04/05/20 06:27 ALT 86 U/L (<50) H 04/05/20 06:27 Alkaline Phosphatase 119 U/L (38-126) 04/05/20 06:27 Ammonia < 8.7 umol/L (9-33) L 03/30/20 04:32 Troponin I 0.164 ng/mL 03/29/20 12:26 NT-Pro-B Natriuret Pep 29919 pg/mL (<125) H 04/01/20 05:42 Total Protein 6.2 g/dL (6.3-8.2) L 04/05/20 06:27 Albumin 2.9 g/dL (3.5-5.0) L 04/05/20 06:27 Triglycerides 108 mg/dL (<150) 03/29/20 06:58 Cholesterol 106.73 mg/dL (0-200) 03/29/20 06:58 LDL Cholesterol Direct 76 mg/dL (<100) 03/29/20 06:58 VLDL Cholesterol 22.0 mg/dL (10-31) 03/29/20 06:58 HDL Cholesterol 15 mg/dL (>40) L 03/29/20 06:58 Amylase 129 U/L (30-110) H 03/29/20 06:58 Lipase 864.7 U/L (23-300) H 03/29/20 06:58 Urine Color YELLOW 04/04/20 04:05 Urine Appearance CLEAR 04/04/20 04:05 Urine pH 7.0 (5.0-9.0) 04/04/20 04:05 Ur Specific [place] 1.007 04/04/20 04:05 Urine Protein 100 mg/dL (NEGATIVE) H 04/04/20 04:05 Urine Glucose (UA) >=500 mg/dL (NEGATIVE) H 04/04/20 04:05 Urine Ketones NEGATIVE mg/dL (NEGATIVE) 04/04/20 04:05 Urine Blood NEGATIVE (NEGATIVE) 04/04/20 04:05 Urine Nitrite NEGATIVE (NEGATIVE) 04/04/20 04:05 Urine Bilirubin NEGATIVE (NEGATIVE) 04/04/20 04:05 Urine Urobilinogen 4.0 mg/dL (<2.0) H 04/04/20 04:05 Ur Leukocyte Esterase NEGATIVE (NEGATIVE) 04/04/20 04:05 Urine WBC (Auto) 1 /HPF 04/04/20 04:05 Urine RBC (Auto) 1 /HPF 04/04/20 04:05 U Hyaline Cast (Auto) 1 /LPF 03/29/20 04:45 Urine Bacteria (Auto) TRACE /HPF 04/04/20 04:05 Squamous Epi Cells Auto <1 /HPF 03/31/20 06:00 Urine Mucus (Auto) RARE /LPF 03/31/20 06:00 Urine Osmolality 441 mOsm/kg (300-900) 03/28/20 19:22 Urine Creatinine 217.4 mg/dL (22-328) 03/28/20 19:22 Protein/Creatinin Ratio 0.6 mg/mg (0.0-0.2) H 03/28/20 19:22 Urine Sodium < 5 mmol/L (30-90) L 03/28/20 19:22 Urine Total Protein 128.4 mg/dL (<12) H 03/28/20 19:22 Urine Ascorbic Acid NEGATIVE (NEGATIVE) 04/04/20 04:05 Hepatitis A IgM Ab Negative (Negative) 03/29/20 06:58 Hep Bs Antigen Negative (Negative) 03/29/20 06:58 Hep B Core IgM Ab Negative (Negative) 03/29/20 06:58 Hepatitis C Antibody 0.1 s/co ratio (0.0-0.9) 03/29/20 06:58 03/28/20 03/29/20 03/29/20 20:45 01:01 06:58 Troponin I 0.181 0.173 0.190 NT-Pro-B Natriuret Pep 96612 H 03/29/20 03/29/20 03/30/20 06:58 12:26 04:32 Troponin I 0.164 NT-Pro-B Natriuret Pep 96462 H 94923 H 03/31/20 04/01/20 06:37 05:42 Troponin I NT-Pro-B Natriuret Pep 04008 H 48466 H Impressions: Chest X-Ray 03/28/20 19:06 IMPRESSION: There are no acute lung parenchymal findings. Mild enlargement of the cardiac silhouette. Chest X-Ray 03/29/20 06:00 IMPRESSION: Mild cardiomegaly without a superimposed acute cardiopulmonary process. Renal Artery Duplex 03/31/20 00:00 IMPRESSION: NO DOPPLER EVIDENCE OF HEMODYNAMICALLY SIGNIFICANT RENAL ARTERY STENOSIS. Abdomen Ultrasound 04/01/20 00:00 IMPRESSION: 1. Shadowing echogenic calculi within the contracted gallbladder. 2. Normal contour and echotexture of the liver. 3. Trace right-sided pleural effusion. 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 Hypertensive kidney disease as well. Plan of Treatment: LifeVest for depressed ejection fraction. Aggressive medication regimen. Follow-up with community care in clinic for complex regimen including warfarin monitoring. Follow-up with cardiology. Goals: Establish effective regimen for treating severe comorbidities Time Spent: Greater than 30 Minutes Stroke Is this a Stroke Patient?: No Acute Heart Failure Is this a Heart Failure Patient?: Yes Documentation of LVEF assessment?: Yes LVEF: LVEF Less Than or Equal to 35% Anticoagulant Therapy: Yes Discharged on Evidence-Based Beta Blockers: Yes Discharged on ARNI?: No-Document Contraindications Reason(s) not discharged on ARNI: Impaired/worsening renal functions, Other ARNI Reason - Other: Uninsured. Cannot afford medication. Discharged on ARB?: No-document contraindications Reason(s) not Discharged on ARB: Impaired/worsening renal functions Discharged on ACEI?: Yes For LVEF <35%, discharged on Aldosterone Antagonist?: No-document contraincations Reason(s) not discharged on Aldosterone Antagonist: Renal dysfunction (creatinine >2.5 mg/dL in men or 2.0 mg/dL in women) Follow-up Appointment scheduled within 7 days?: Yes
[2020-04-05] MEDS: NITROGLYCERIN 15 MG (0.6 MG/1 HR) PATCH.TD24 TD SCH (14:54)
[2020-04-05 16:46] VITALS: BP 141/100
--- NOTE | 2020-04-05 19:50 | Progress Note ---
Provider Note Provider Note: Cardiology progress note by Dr. Minnie Sage on 04/05/2020. SUBJECTIVE: The patient denies any chest pain discomfort. There is no shortness of breath. There is no PND orthopnea. There is no arrhythmias seen on the monitor. The patient is awaiting for his LifeVest. The patient's INR is therap eutic and hence the heparin drip has been stopped. We will recheck the patient's PT/INR in 6 hours after the stoppage of heparin. There is no TIA CVA symptoms. There is no peripheral embolization. His leg edema has resolved. PHYSICAL EXAMINATION: The patient is well-built and well-nourished in no acute distress. Selected Entries 04/05/20 15:55 Temperature 97.9 F Temperature Oral Source Pulse Rate 59 L Respiratory 16 Rate Blood Pressure 141/100 H Blood Pressure 113 Mean BP Location Right Arm BP Position Supine O2 Sat by Pulse 97 Oximetry Oxygen Delivery Room Air Method Head: Is atraumatic normocephalic. EYES: Nipples are equal round regular reactive light accommodation. Extraocular movements are normal. There is no definite conjunctival pallor present there is no scleral icterus. Ears: Tympanic membranes are intact. External auditory canals are clear. NOSE: There is no deviated nasal septum. There is no inflammation of the nasal mucous membrane. MOUTH: Mucous membranes of mouth are moist. Tongue is moist. There is no ulcers. There is no bleeding from the gums. THROAT: There is no redness of the oropharynx. There is no exudates. SKIN: There is no skin rashes. There is no petechia or ecchymosis. There is no skin lesions. NECK: Supple. There is mild JVD present. Carotids are equal there is no bruit there is no lymphadenopathy. There is no goiter. Lungs: Clear to auscultation and percussion. There is no rhonchi rales or wheezing.. HEART: S1-S2 is heard. There is an S4 gallop present there is no S3 gallop. There is systolic murmur left sternal border and the apex of mitral regurgitation and tricuspid regurgitation. There is no aortic stenosis or aortic regurgitation murmur. There is no rub. ABDOMEN: Is soft. There is no hepatosplenomegaly. Bowel sounds well heard. There is no tender areas of masses. EXTREMITIES: Femorals are well felt. There is no femoral bruits. Leg pulses are well felt. There is trace to mild pedal edema bilaterally. There is no DVT or cellulitis. There is no calf tenderness. DANCE CRITIC: The patient is conscious awake alert oriented x3 with no focal focal deficits. PSYCHIATRIC: The patient judgment insight are intact his affect is normal. Labs- All tests 24 hr 04/02/20 04/02/20 04/03/20 17:34 21:49 07:47 WBC RBC Hgb Hct MCV MCH MCHC RDW Plt Count PT INR Sodium Potassium Chloride Carbon Dioxide Anion Gap BUN Creatinine Est GFR ( Amer) Est GFR (MDRD) Non-Af Glucose POC Glucose 247 H 296 H 363 H Hemoglobin A1c % Calcium Magnesium Total Bilirubin Direct Bilirubin Neonat Total Bilirubin Neonat Direct Bilirubin Neonat Indirect Bili AST ALT Alkaline Phosphatase Total Protein Albumin 04/03/20 04/03/20 04/04/20 11:17 16:18 07:45 WBC RBC Hgb Hct MCV MCH MCHC RDW Plt Count PT INR Sodium Potassium Chloride Carbon Dioxide Anion Gap BUN Creatinine Est GFR ( Amer) Est GFR (MDRD) Non-Af Glucose POC Glucose 262 H 288 H 366 H Hemoglobin A1c % Calcium Magnesium Total Bilirubin Direct Bilirubin Neonat Total Bilirubin Neonat Direct Bilirubin Neonat Indirect Bili AST ALT Alkaline Phosphatase Total Protein Albumin 04/05/20 04/05/20 04/05/20 06:27 06:27 06:27 WBC 17.1 H RBC 4.24 L Hgb 12.8 L Hct 39.2 MCV 93 MCH 30.2 MCHC 32.6 RDW 18.9 H Plt Count 239 PT INR Sodium 129.7 L Potassium 4.3 Chloride 87 L Carbon Dioxide 36 H Anion Gap 7 BUN 56 H Creatinine 2.39 H Est GFR ( Amer) 35 L Est GFR (MDRD) Non-Af 29 L Glucose 241 H POC Glucose Hemoglobin A1c % 5.1 Calcium 9.2 Magnesium 1.9 Total Bilirubin 1.5 H Direct Bilirubin 0.8 H Neonat Total Bilirubin Not Reportable Neonat Direct Bilirubin Not Reportable Neonat Indirect Bili Not Reportable AST 39 ALT 86 H Alkaline Phosphatase 119 Total Protein 6.2 L Albumin 2.9 L 04/05/20 04/05/20 04/05/20 06:27 07:45 15:53 WBC RBC Hgb Hct MCV MCH MCHC RDW Plt Count PT 35.9 H INR 3.64 Sodium Potassium Chloride Carbon Dioxide Anion Gap BUN Creatinine Est GFR ( Amer) Est GFR (MDRD) Non-Af Glucose POC Glucose 215 H 183 H Hemoglobin A1c % Calcium Magnesium Total Bilirubin Direct Bilirubin Neonat Total Bilirubin Neonat Direct Bilirubin Neonat Indirect Bili AST ALT Alkaline Phosphatase Total Protein Albumin Chest X-Ray 03/28/20 19:06 IMPRESSION: There are no acute lung parenchymal findings. Mild enlargement of the cardiac silhouette. Chest X-Ray 03/29/20 06:00 IMPRESSION: Mild cardiomegaly without a superimposed acute cardiopulmonary process. Renal Artery Duplex 03/31/20 00:00 IMPRESSION: NO DOPPLER EVIDENCE OF HEMODYNAMICALLY SIGNIFICANT RENAL ARTERY STENOSIS. Abdomen Ultrasound 04/01/20 00:00 IMPRESSION: 1. Shadowing echogenic calculi within the contracted gallbladder. 2. Normal contour and echotexture of the liver. 3. Trace right-sided pleural effusion. IMPRESSION/RECOMMENDATION: 1. Hypertensive emergency with evidence of endorgan damage, there is cardiomyopathy with heart failure and renal failure and also abnormal liver enzymes indicating hepatic congestion. The patient blood pressure much improved but still not optimal. Continue the patient's current antihypertensives at the current dosages. 2. Congestive heart failure: Most likely this is acute on chronic heart failure. This is secondary to biventricular systolic heart failure. Although the patient states his symptoms started 2 weeks ago this probably is longstanding due to untreated hypertension. 3. Dilated cardiomyopathy with severely reduced LV ejection fraction.patient awaiting placing of 'Lifevest'. 4. Elevated troponin levels. This is secondary to supply demand mismatch, due to type II myocardial infarctions, and not acute coronary syndrome. 5. Acute renal failure: Suspect this is acute on chronic renal failure. Avoid nephrotoxic drugs. At present renal function is improved to chronic kidney disease stage III 6. Intracardiac thrombus: The patient's pro time is therapeutic. We will stop the patient's heparin and recheck the patient's pro time to see what the level is with the heparins affect being off. We will continue Coumadin as per pro time. 7. At least moderate pulmonary hypertension: This is most likely secondary to left heart failure. Expect that this would improve with treatment of the patient's left heart failure. 8. Abnormal liver function tests secondary to right heart failure due to pulmonary hypertension. Would strongly avoid statins at this point. 9. Severe mitral regurgitation and tricuspid regurgitation. Expect this will improve with treatment of the patient's heart failure. 10. History of tobacco abuse: Tobacco cessation counseling done. Suspect the patient has an element of COPD also. Medications reviewed medications adjusted. Discussed with the port crane operator. Medical decision making is of high complexity. 40 minutes spent as patient more than 50% of time spent in direct patient care.
== END 2020-04-05 21:15 | disposition home or self-care (01) | DRG 280 ==
LOC: ER 18:44 → EH 23:29 → ICU 03-29 02:30 → 3S 03-30 14:47
PROVIDERS: ADMIT Hospitalist; ATTEND Hospitalist
DX: I21.A1 Myocardial infarction type 2 (principal); I50.43 Acute on chronic combined systolic (congestive) and diastolic (congestive) heart failure; N17.9 Acute kidney failure, unspecified; I13.0 Hypertensive heart and chronic kidney disease with heart failure and stage 1 through stage 4 chronic kidney disease, or unspecified chronic kidney disease; E87.1 Hypo-osmolality and hyponatremia; I42.0 Dilated cardiomyopathy; I16.1 Hypertensive emergency; I27.20 Pulmonary hypertension, unspecified; E11.22 Type 2 diabetes mellitus with diabetic chronic kidney disease; E11.65 Type 2 diabetes mellitus with hyperglycemia; I34.0 Nonrheumatic mitral (valve) insufficiency; I36.1 Nonrheumatic tricuspid (valve) insufficiency; K64.9 Unspecified hemorrhoids; N18.30 Chronic kidney disease, stage 3 unspecified; I77.6 Arteritis, unspecified; R94.5 Abnormal results of liver function studies; R63.0 Anorexia; R63.4 Abnormal weight loss; Z59.8 Other problems related to housing and economic circumstances; Z87.891 Personal history of nicotine dependence; Z79.01 Long term (current) use of anticoagulants; Z79.84 Long term (current) use of oral hypoglycemic drugs; Z79.899 Other long term (current) drug therapy
CPT/HCPCS: 36415; 71045; 76705; 80053; 80061; 80069; 80074; 81001; 82140; 82150; 82570; 82962; 82977; 83036; 83690; 83735; 83880; 83930; 83935; 84100; 84156; 84300; 84484; 85025; 85027; 85610; 85652; 85730; 87070; 93005; 93010; 93306; 93975; 93976; 94799; 96374; 99285; 99291; 99292; J0360; J1644; J1650; J1815; J1940; J2920; J3480; J3490; J7512

== ENCOUNTER → 2020-04-14 | Outpatient (CLI) | payer OTHER ==
[2020-04-14 08:54] LABS: INTERNATIONAL RATION (INR) 2.99; PROTHROMBIN TIME 30.9 SEC (11.4-15.4)
[2020-04-14 09:09] LABS: ALKALINE PHOSPHATASE 92 U/L (38-126); ASPARTATE AMINO TRANSFERASE 31 U/L (17-59); BILIRUBIN,DIRECT 0.5 mg/dL (0.0-0.4); BILIRUBIN,TOTAL 1.4 mg/dL (0.2-1.3); BLOOD UREA NITROGEN 69 mg/dL (7-20); CALCIUM 9.8 mg/dL (8.4-10.2); CHLORIDE 85 mmol/L (98-107); GLUCOSE 153 mg/dL (75-110); POTASSIUM 3.5 mmol/L (3.6-5.0); TOTAL PROTEIN 7.8 g/dL (6.3-8.2)
[2020-04-14 09:13] LABS: ABSOLUTE BASOPHILS # (AUTO) 0.1 10^3/uL (0.0-0.2); ABSOLUTE EOSINOPHILS # (AUTO) 0.1 10^3/uL (0.0-0.6); ABSOLUTE LYMPHOCYTES (AUTO) 1.9 10^3/uL (0.5-4.7); ABSOLUTE NEUT (AUTO) 9.2 10^3/uL (1.7-8.2); BASOPHILS % (AUTO) 1.2 % (0-2); HEMATOCRIT 42.8 % (37.9-51.0); HEMOGLOBIN 14.2 g/dL (13.5-17.0); LYMPHOCYTES % (AUTO) 15.2 % (13-45); MEAN CORPUSCULAR HEMOGLOBIN 30.2 pg (27.0-33.4); MEAN CORPUSCULAR HGB CONC 33.2 g/dL (32.0-36.0); MEAN CORPUSCULAR VOLUME 91 fl (80-97); PLATELET COUNT 345 10^3/uL (150-450); RED BLOOD COUNT 4.71 10^6/uL (4.35-5.55); RED CELL DISTRIBUTION WIDTH 18.7 % (11.5-14.0); SEGMENTED NEUTROPHILS % (AUTO) 74.6 % (42-78); TOTAL CELLS COUNTED % (AUTO) 100 %; WHITE BLOOD COUNT 12.3 10^3/uL (4.0-10.5)
[2020-04-14 09:16] LABS: ANION GAP 10 (5-19); CARBON DIOXIDE 38 mmol/L (22-30)
[2020-04-15 07:38] LABS: HEPATITIS B CORE AB TOT Negative (Negative); HEPATITIS C VIRUS AB <0.1 s/co ratio (0.0-0.9); HEPATITS B SURFACE ANTIGEN Negative (Negative)
== END ==
LOC: CCC 07:52
PROVIDERS: ATTEND Internal Medicine
DX: I50.33 Acute on chronic diastolic (congestive) heart failure (principal); R49.22 Hyponasality; R73.09 Other abnormal glucose; R94.5 Abnormal results of liver function studies; Z79.01 Long term (current) use of anticoagulants; Z79.899 Other long term (current) drug therapy
CPT/HCPCS: 36415; 80048; 80076; 83880; 85025; 85610; 86704; 86705; 86803; 86804; 87340

== ENCOUNTER → 2020-05-12 | Outpatient (CLI) | payer OTHER ==
[2020-05-12 10:21] LABS: ANION GAP 8 (5-19); BLOOD UREA NITROGEN 60 mg/dL (7-20); CARBON DIOXIDE 36 mmol/L (22-30); CHLORIDE 92 mmol/L (98-107); GLUCOSE 109 mg/dL (75-110); POTASSIUM 3.9 mmol/L (3.6-5.0)
[2020-05-12 14:32] LABS: INTERNATIONAL RATION (INR) 2.84; PROTHROMBIN TIME 29.7 SEC (11.4-15.4)
== END ==
LOC: OD 08:57
PROVIDERS: ATTEND Internal Medicine
DX: I12.9 Hypertensive chronic kidney disease with stage 1 through stage 4 chronic kidney disease, or unspecified chronic kidney disease (principal); Z79.01 Long term (current) use of anticoagulants; N18.30 Chronic kidney disease, stage 3 unspecified
CPT/HCPCS: 36415; 80048; 85610; 85730